=== PATIENT | female | born 1965 | race African-American/Black ===

== ENCOUNTER 2017-09-01 08:34 | Inpatient (IN) | payer OTHER ==
--- NOTE | 2017-09-01 09:24 | RAD ---
INDICATION: Syncope. COMPARISON: There are no prior studies available for comparison. TECHNIQUE: Contiguous axial sections of the brain were obtained from the skull base to the vertex without contrast. FINDINGS: The ventricles, cisterns and sulci are within normal limits. No significant focal abnormality or mass effect is seen. There is no evidence for hemorrhage. No significant focal osseous abnormality is seen. The visualized portion of the paranasal sinuses and mastoid air cells appear clear. IMPRESSION: NO EVIDENCE FOR ACUTE INTRACRANIAL ABNORMALITY.
--- NOTE | 2017-09-01 09:28 | RAD ---
HISTORY: Syncope COMPARISONS: None VIEWS: 1: frontal portable view of the chest at 9:05 AM FINDINGS: LINES AND TUBES: None. CARDIOMEDIASTINAL SILHOUETTE: The cardiomediastinal silhouette is normal for portable technique. PLEURA: The costophrenic angles are sharp. No pleural abnormalities are noted. LUNG PARENCHYMA: The lungs are clear. ABDOMEN: The upper abdomen is clear. There is no subphrenic gas. BONES AND SOFT TISSUES: No bone or soft tissue abnormalities are noted. IMPRESSION: NO ACTIVE CARDIOPULMONARY DISEASE.
[2017-09-01 09:39] LABS: ABS Basophils 0 10^3/ul (0-0.2); ABS Eosinophils 0 10^3/ul (0-0.6); ABS Lymphocytes 2.2 10^3/ul (1.0-4.8); ABS Monocytes 0.4 10^3/ul (0-0.8); ABS Neutrophils 7.4 10^3/ul (1.5-7.7); ABS Nucleated RBC 0 10^3/ul; Eosinophil % 0.2 % (0-6); Hematocrit 38 % (35-47); Hemoglobin 12.7 g/dl (12.0-16.0); Lymphocyte % 21.6 % (25-47); Mean Corpuscular HGB Conc 33 g/dl (31-36); Mean Corpuscular Hemoglobin 28 pg (27-31); Mean Corpuscular Volume 86 fL (80-97); Mean Platelet Volume 8 um3 (7.4-10.4); Nucleated Red Blood Cells % 0; Platelet Count 355 10^3/ul (150-450); Red Blood Count 4.45 10^6/ul (4.0-5.4); Red Cell Distribution Width 14 % (10.5-15); White Blood Count 10.1 10^3/ul (3.5-10.8)
[2017-09-01 09:54] LABS: EGFR Non-African American 78.4 (>60)
[2017-09-01 11:24] LABS: Urine Appearance Clear; Urine Blood Negative (Negative); Urine Color Straw; Urine Ketones 1+ (Negative); Urine Protein Negative (Negative); Urine Specific Gravity 1.008 (1.010-1.030); Urine Urobilinogen Negative (Negative)
[2017-09-01] MEDS ORDERED: Aspirin Low Dose CHEW TAB* 81 MG PO ONE (12:18)
[2017-09-01] MEDS ORDERED: Dextrose 50% Syringe 50 ML* 25 GM/50 ML SYRINGE IV PUSH PRN (12:18)
[2017-09-01] MEDS ORDERED: Ondansetron INJ* 2 MG/ML VIAL IV PRN (12:18)
[2017-09-01] MEDS ORDERED: NS 0.9% 1000 ML* 1,000 ML IV SCH (12:30)
[2017-09-01] MEDS ORDERED: Albuterol HFA INHALER* 8 gm MDI INH PRN (12:37)
[2017-09-01] MEDS ORDERED: NS 0.9% 1000 ML* 1,000 ML IV ONE (12:37)
[2017-09-01] MEDS ORDERED: Magnesium Sulfate 2 GM IV* 2 GM/50 ML BAG IVPB ONE (12:45)
[2017-09-01] MEDS ORDERED: Iodixanol* (CONTRAST) 320 MG/ML 100 ML SDV IV ONE (12:51)
--- NOTE | 2017-09-01 14:13 | RAD ---
INDICATION: RIGHT leg weakness. COMPARISON: September 25, 2014 CT angiogram. TECHNIQUE: Multidetector CT images were obtained from the aortic arch to the vertex of the head with 80 mL Visipaque 320 IV contrast. Arterial phase of enhancement. Multiplanar reformation including maximum intensity projection. 3-D arterial volume rendering. Stenosis estimations based on denominator of distal arterial diameter. NECK ANGIOGRAM REPORT: Normal variant direct origin of the LEFT vertebral artery from the aortic arch between the LEFT common carotid and subclavian arteries. While assessment is limited due to artifact from dense contrast in the LEFT brachiocephalic vein there is no gross evidence for ostial stenosis at the aortic arch branch vessels. Negative for calcific plaque at the carotid bifurcations. Negative for carotid dissection. Patent codominant vertebral arteries with both contributing to the basilar artery. NECK ANGIOGRAM IMPRESSION: Negative for carotid or vertebral artery stenosis. HEAD ANGIOGRAM REPORT: Minimal calcific plaque at the RIGHT carotid siphon without significant resulting stenosis. Unremarkable bilateral M1 and M2 middle cerebral artery segments as well as the A1 and A2 anterior cerebral artery segments. Unremarkable cerebellar artery origins and basilar artery. Patent bilateral posterior cerebral arteries are supplied by both the posterior and anterior circulation with visualized bilateral patent posterior communicating arteries. No visualized intracranial aneurysms or vascular malformations. No arterial phase enhancing lesions evident. HEAD ANGIOGRAM IMPRESSION: Negative for central intracranial large vessel arterial stenosis or occlusion. CPT II: CPT II Codes: 3100F
[2017-09-01] MEDS ORDERED: LORazepam INJ* 2 MG/ML 1 ML VIAL IV PUSH PRN (15:58)
[2017-09-01] MEDS: Acetaminophen TAB* 325 MG PO PRN ×2 (16:22→22:09)
[2017-09-01] MEDS: Heparin VIAL(*) 5000 UNITS/ML VIAL (FIVE THOUSAND) SUBCUT SCH ×2 (16:23→22:12)
[2017-09-01] MEDS: Insulin LISPRO* 1 UNITS UNIT SUBCUT SCH (17:44)
--- NOTE | 2017-09-01 19:27 | RAD ---
Image sequences: Seizures. Sagittal and axial T1, axial T2, FLAIR, diffusion and susceptibility weighted images of the brain were obtained. Ventricular structures are midline. No midline shift is noted. The extra-axial spaces are unremarkable. There is no evidence of intracranial mass or hemorrhage. No other high or low density lesions identified. Diffusion-weighted images demonstrates no restriction of diffusion. FLAIR images demonstrates no definite vasogenic edema. Please note that the study is limited due to motion artifact. Patient could not complete the study. IMPRESSION: No restriction of diffusion. Motion artifact degrades the study.
--- NOTE | 2017-09-01 19:56 | HP ---
CC: Dr. Bruno; Dr. Alvarado * HISTORY AND PHYSICAL: DATE OF ADMISSION: 09/01/17 PRIMARY CARE PROVIDER: Dr. Bruno. ATTENDING PHYSICIAN WHILE IN THE HOSPITAL: Deepa Snyder MD * (report dictated by Jim Bay NP). CONSULTING NEUROLOGIST: Dr. Alvarado. CHIEF COMPLAINT: Syncope versus seizure. HISTORY OF PRESENT ILLNESS: Mrs. Deluna is a 52-year-old female patient. She said she got up this morning. She was doing her daily chores. She was making breakfast for her son. She was getting ready for work. The last thing she remembers is she went to reach for her keys, and she does not remember the ambulance called. She does not remember the EMS coming to see her. The son had called 911 because apparently she had an episode where she fainted. She states that the only thing that she remembers prior to this episode is she felt flushed. She denied any chest pain. She said that she did not have a headache. She said yesterday and the day before, she was having some abdominal discomfort in the right upper quadrant epigastric area, but that has subsequently now gone. She did not lose control of urine. She did not wet herself, but she was found by EMS and they were concerned that she may have had a seizure. When she came in to the ED, she was very slow to respond, very confused, almost in like a postictal state. There was question if the patient had any convulsion type episodes. The patient denies any chest pain now. She states she is feeling better. She denies having any abdominal pain. She states she had no trouble with her speech. There are no reports of facial drooping. No reports of weakness to one side. The patient states that she has had an episode like this several years ago and they thought it was cardiac related according to her and she had a cardiac workup for this in [place] and nothing became of it. She states that she has not been running any fevers recently. There has been no coughing. No shortness of breath. There was abdominal discomfort in the epigastric and right upper quadrant yesterday, but no pain now. She came in to our ER, there was concern for possible seizure or syncope. We were asked to evaluate for admission. She does carry a history of diabetes, asthma, hypertension, and hyperlipidemia. PAST MEDICAL HISTORY: Significant for: 1. Diabetes. 2. Hypertension. 3. Hyperlipidemia. 4. Asthma. PAST SURGICAL HISTORY: 1. The patient has had . 2. She also had hysterectomy. MEDICATIONS: The home meds according to the list provided include: 1. Atorvastatin 20 mg daily. 2. Albuterol 2 puffs inhaled every 4 hours as needed. 3. Januvia 50 mg daily. 4. Hydrochlorothiazide 25 mg daily. 5. Metformin 1000 mg p.o. b.i.d. 6. Glipizide 10 mg p.o. b.i.d. 7. Cozaar 10 mg p.o. daily. ALLERGIES TO MEDICATIONS: Include none, but she is allergic to peanuts. FAMILY HISTORY: Mother had a history of colon cancer. Father's history is unknown as he when the patient was young. SOCIAL HISTORY: She does not smoke. She does not drink. Surrogate decision maker will be her son. REVIEW OF SYSTEMS: There is no documented fever. She denied having any significant weight change. There was no double vision. She denies having any ear discharge. There is no rhinorrhea. No sore throat, no thyroid enlargement. Denies having any chest pain. There is no orthopnea. There is no nocturnal dyspnea. There is no abdominal pain now. She denied having any nausea. No vomiting. No dysuria. There is no frequency. No seizure. No loss of consciousness, no pruritus, no skin ulcerations. Review of 14 systems was completed; all others negative. PHYSICAL EXAMINATION GENERAL: At this time, Mrs. Deluna is a 52-year-old female patient. She is sitting in the ED stretcher. She does not appear to be in any acute distress. VITAL SIGNS: Blood pressure 159/87, pulse 81, respirations 22, O2 sat of 97%, temperature of 98.6. HEENT: Head: Atraumatic and normocephalic. Eyes: EOMS are intact. Sclerae are anicteric. Not pale. Throat: Oral mucosa appears to be moist. No oropharyngeal erythema. NECK: Supple. LUNGS: Clear to auscultation. No wheezes, rales, or rhonchi. HEART: Sounds S1, S2. Regular rate and rhythm. No murmurs, rubs, or gallops. ABDOMEN: Soft, flat, nontender. Bowel sounds were present. EXTREMITIES: Pulses are 2+ throughout. She has 5/5 strength in the upper extremities. 5/5 strength on the left lower extremity. On the right lower extremity, she was slow to move compared to the left. There was no peripheral edema noted and she had pulses that were 2+ throughout. NEUROLOGIC: She is awake now. She is alert. Speech is clear. She is oriented x3. Her tongue is midline. She had no facial drooping. Finger-to- nose is intact. She does have some difficulty raising the right leg. She can move the left leg appropriately. Inspector [employer] Sorting were equal. There is no pronator drift. No other gross focal deficits. SKIN: Intact. LABORATORY DATA/DIAGNOSTIC STUDIES: WBC of 10.1, RBC of 4.45, hemoglobin of 12.7, hematocrit 38, and a platelet count of 355,000. Sodium was 134, potassium 4.1, chloride 98, bicarb was 28, BUN 15, creatinine 0.77, glucose 318 , lactic 1, calcium 9.5. Her mag is 1.5. Total bili 0.4. AST 10, ALT 16, alk phos 113, ammonia 38. Troponin 0. CRP is pending. BNP is 24. TSH is 1.30. Urine showed low specific gravity, 1 ketone, 3+ blood. Toxicology was negative. She did have a chest x-ray obtained today, which revealed no active cardiopulmonary disease. There was a brain CT, which revealed no evidence for acute intracranial abnormality. There was an EKG today showing a sinus rhythm with rate of 87. No ST elevations or T wave versions were noted. It was reviewed with the previous EKG, appears to be similar. Old medical records reviewed. ASSESSMENT AND PLAN: Mrs. Deluna is a 52-year-old female patient coming in to the ED today with complaints of an episode of syncope versus seizure. She will be admitted on observation status for: 1. Syncope versus seizure. At this point, I did ask Dr. Alvarado to evaluate the patient as there was concern that the right leg, again she is having difficulty moving it, it is moving slower than the left, it is not as fluid. I did touch base with him. The plan will be to get an MRI, CTA head and neck because she does have risk factors. I do note that when I change her position in bed, she did become orthostatic in the sense that her heart rate changed about 20 points just from sitting upright, so I am going to give her a liter of fluids wide open, hold the blood pressure meds for the time being, get the MRI, get an EEG. Dr. Alvarado will evaluate her with frequent neuro checks. Get a bedside swallow eval. Give her aspirin when able. She is on statin already. We will check lipids and A1c in the morning. We will get frequent neuro checks. Get an echo with bubble study and we will continue to follow. Dr. Alvarado to evaluate. 2. Diabetes. We will put her on lispro sliding scale. 3. Hypertension in the setting of possible focal deficit like this and concern for stroke. We will hold her blood pressure meds and allow for permissive hypertension, hyperlipidemia. Check lipid panel for the time being. Continue statin. 4. Asthma. Continue meds as prescribed. 5. Syncope. I will get orthostatic blood pressures. In addition to this, I will also get the echo. 6. DVT prophylaxis. She will be placed on heparin subcu. 7. Code status. She is full code. 8. Fluids, electrolytes, and nutrition. She is n.p.o. pending the bedside swallow eval. If she passes, she can have a consistent carb diet. TIME SPENT: On admission 60 minutes, greater than half of the time spent face- to- face with the patient obtaining my history and physical, the other half of the time was spent going over the plan of care with the patient and implementing the plan of care. I did discuss the plan of care with my attending, Dr. Snyder; she is in agreement. JIM BAY NP [id number]/[facility] #: [id number] JORGE A
--- NOTE | 2017-09-01 20:13 | CONS ---
CONSULTATION REPORT: DATE OF CONSULT: 09/01/17 PATIENT OF: Dr. Bruno and Titus Bay NP HISTORY OF PRESENT ILLNESS: This is a 52-year-old woman who I am asked to evaluate for possible stroke. Of note, she has diabetes, hypercholesterolemia and hypertension. Between 7:00 and 7:30 today, she was with her sons at the breakfast table and she says she felt hot and clammy, she does not remember anything else. I spoke to the son on the phone and he notes that his mom said she felt lightheaded and then she collapsed limply to the ground. The ambulance came and the crew apparently relayed to the ER physician that it looked like she had had a seizure , but apparently this was due to looking like she was postictal_ rather than any shaking that they directly witnessed. The son denies that she had any shaking. She was brought in. Apparently initially, she was not communicating and was moving fingers with limited power, but without any focality. I was called early afternoon by Titus Bay NP, who noted a right leg weakness and I came in, evaluated her and she notes that once she came to, her right leg feels heavier than the left. This is a new finding for her. She denies any headache, numbness, speech problems. She says her right arm feels fine. She has no back pain. She has had no prior stroke. Of note, she says several years ago when she was in [place], she had a passing out spell. It was thought to be cardiac, but the cardiac workup was negative and she never had an answer for that event. She notes that she has not been hypoglycemic recently and her blood sugar this morning was between 100 and 150. PAST MEDICAL HISTORY: She has had no recent surgeries. MEDICATIONS: Medications she takes at home include: 1. Lipitor 20 mg daily. 2. Albuterol 2 puffs inhaled p.r.n. 3. Januvia 50 mg daily. 4. Hydrochlorothiazide 25 mg daily. 5. Metformin 1000 mg b.i.d. 6. Glipizide 10 mg b.i.d. 7. Losartan 100 mg daily. ALLERGIES: She is allergic to peanuts and eggs. FAMILY HISTORY: There is no family for stroke she could recall. SOCIAL HISTORY: She does not smoke or drink. REVIEW OF SYSTEMS: Negative in all 14 spheres other than the HPI. PHYSICAL EXAM: Temperature 98.6, pulse 81, respiratory rate 22, blood pressure 159/87. She is alert and oriented with normal speech and comprehension. Cranial nerves II through XII were intact. Fundi showed sharp discs. Motor exam revealed normal tone. She had 5-/5 strength in the right leg. Strength elsewhere including in the arm was 5/5. She had no pronator drift. Finger-to- nose in the right arm was slightly clumsy, although fine motor was intact in the right hand. She had clumsiness on [id number] on the right, but not the left leg. Reflexes were 1 and equal. Toes were downgoing. Sensation intact to light touch. Chest clear. Cardiovascular: Regular rate and rhythm. Abdomen is soft with positive bowel sounds. DIAGNOSTIC STUDIES/LAB DATA: Her CT scan showed no acute bleed or problems. I reviewed the films. She has had labs including normal CBC, normal CMP with glucose of 318. Currently, magnesium 1.5, alk phos 113. C-reactive protein was 16. TSH was normal. BNP was 24. Troponin was 0.01. Lactic acid was normal. UA had 1+ ketones, 3+ glucose. Drug screen was negative. IMPRESSION: I discussed with Myriam that she was initially thought to have a seizure and had a nonfocal exam, but was confused when came in. When she was able to cooperate, it became apparent that she had some right-sided weakness mostly in her right leg, but there was some incoordination of her right arm. I discussed that this was discovered at appointment she was outside the window where she could have possibly got a tPA, which would be used for acute strokes within a more narrow timeframe. At this point, we are going to get a CTA of her head and neck to assess her vasculature. We will get a cardiac echo with bubble study. We will check fasting lipid profile. I discussed that depending on what her workup shows, we might do some further cardiac monitoring. She will be on daily aspirin at this point which she was not on previously and we may adjust her statin depending on what her LDL is, to aim for a level below 70. Thank you for sharing her case. [id number]/[facility] #: [id number] JORGE A
--- NOTE | 2017-09-02 04:50 | EEG ---
ELECTROENCEPHALOGRAPHY: DATE OF STUDY: 09/01/17_ - ROOM #[id number] DATE OF DICTATION: 09/01/17 PATIENT OF: Dr. Bay. CLINICAL PROBLEM: This is a 52-year-old woman who had a syncopal episode today followed by some right-sided weakness. MEDICINES: Include: 1. Aspirin. 2. Magnesium. 3. Humalog. 4. Lipitor. 5. Ventolin. 6. Zofran. REPORT: With the patient awake, background cerebral activity consists of moderate amplitude, diffuse alpha and beta range frequencies. With the patient asleep, background consists of diffuse irregular delta and theta activity. Some sleep spindles noted throughout the tracing. There is prominent muscle movement artifact as well as some eye artifact. No clearcut epileptiform potentials, focal abnormalities, or major asymmetries of background are noted. CLINICAL IMPRESSION: This awake and asleep EEG showed no major abnormalities, but somewhat limited by prominent artifact. [id number]/[facility] #: [id number] MTDD
[2017-09-02 05:14] LABS: ABS Basophils 0 10^3/ul (0-0.2); ABS Eosinophils 0.1 10^3/ul (0-0.6); ABS Lymphocytes 2.3 10^3/ul (1.0-4.8); ABS Monocytes 0.4 10^3/ul (0-0.8); ABS Neutrophils 4.3 10^3/ul (1.5-7.7); ABS Nucleated RBC 0 10^3/ul; Hematocrit 35 % (35-47); Hemoglobin 11.7 g/dl (12.0-16.0); Mean Corpuscular HGB Conc 33 g/dl (31-36); Mean Corpuscular Hemoglobin 29 pg (27-31); Mean Corpuscular Volume 87 fL (80-97); Mean Platelet Volume 8 um3 (7.4-10.4); Nucleated Red Blood Cells % 0.1; Platelet Count 311 10^3/ul (150-450); Red Blood Count 4.02 10^6/ul (4.0-5.4); Red Cell Distribution Width 14 % (10.5-15); White Blood Count 7.1 10^3/ul (3.5-10.8)
[2017-09-02 05:27] LABS: INR 1.03 (0.77-1.02)
[2017-09-02 05:37] LABS: EGFR Non-African American 102.6 (>60)
[2017-09-02] MEDS: Heparin VIAL(*) 5000 UNITS/ML VIAL (FIVE THOUSAND) SUBCUT SCH ×3 (07:11→22:24)
--- NOTE | 2017-09-02 08:06 | ED ---
João Larson Gabriel, scribed for Gerson Curran MD on 09/01/17 at 0849 . Neurological HPI - HPI Summary HPI Summary: This patient is a 52 year old F BIBA to [facility] after what EMS believes was seizure activity due to symptoms such as drooling. Additionally they report she had a blood glucose of over 300. The patient reports confusion, SCHULTZ, CP (due to asthma), and states she does not know what has happened. Patient denies double vision and SOB. She denies history of seizures but has had syncopal episodes previously. She has not taken her inhaler today and had a blood glucose of about 100 this morning. - History of Current Complaint Chief Complaint: EDDiabeticProb Stated Complaint: SYNCOPE Time Seen by Provider: 09/01/17 08:40 Hx Obtained From: Patient, EMS Onset/Duration: Started hours ago, Still Present Timing: Constant Onset Severity: Moderate Current Severity: Moderate Pain Intensity: 0 Pain Scale Used: 0-10 Numeric Associated Signs and Symptoms: Positive: Confusion, Chest Pain - Additional Pertinent History Primary Care Physician: LORENZO - Allergy/Home Medications Allergies/Adverse Reactions: Allergies Allergy/AdvReac Type Severity Reaction Status Date / Time Peanut-containing Drug Allergy Unknown Verified 08/27/15 18:18 Products Reaction Details Home Medications: Home Medications Sitagliptin (NF) [Januvia (NF)] 50 mg PO DAILY 09/01/17 [History Confirmed 09/01] PMH/Surg Hx/FS Hx/Imm Hx Endocrine/Hematology History: Reports: Hx Diabetes Denies: Hx Thyroid Disease Cardiovascular History: Reports: Hx Hypercholesterolemia, Hx Hypertension Denies: Hx Congestive Heart Failure, Hx Pacemaker/ICD Respiratory History: Denies: Hx Asthma, Hx Chronic Obstructive Pulmonary Disease (COPD) GI History: Denies: Hx Ulcer History: Denies: Hx Renal Disease Sensory History: Denies: Hx Hearing Aid Psychiatric History: Denies: Hx Panic Disorder - Surgical History Surgery Procedure, Year, and Place: HYSTERECTOMY, Infectious Disease History: No Infectious Disease History: Denies: Hx Clostridium Difficile, Hx Hepatitis, Hx Human Immunodeficiency Virus (HIV), Hx of Known/Suspected MRSA, Traveled Outside the [place] in Last 30 Days - Family History Known Family History: Positive: Hypertension, Diabetes - Social History Alcohol Use: Occasionally Alcohol Amount: 1 glass 1 month Substance Use Type: Reports: None Smoking Status (MU): Never Smoked Tobacco Review of Systems Negative: Blurred Vision Positive: Chest Pain Negative: Shortness Of Breath Neurological: Other - confusion Positive: Headache All Other Systems Reviewed And Are Negative: Yes Physical Exam - Summary Physical Exam Summary: VITAL SIGNS: Reviewed. GENERAL: Patient is a well-developed and nourished female who is lying comfortable in the stretcher. Patient is lethargic and confused HEAD AND FACE: No signs of trauma. No ecchymosis, hematomas or skull depressions. No sinus tenderness. EYES: PERRLA, EOMI x 2, No injected conjunctiva, no nystagmus. No photophobia. EARS: Hearing grossly intact. Ear canals and tympanic membranes are within normal limits. MOUTH: Oropharynx within normal limits. NECK: Supple, trachea is midline, no adenopathy, no JVD, no carotid bruit, no c- spine tenderness, neck with full ROM. No meningeal signs, no Kernig's or brudzinskis signs. CHEST: Symmetric, no tenderness at palpation LUNGS: Clear to auscultation bilaterally. No wheezing or crackles. CVS: Regular rate and rhythm, S1 and S2 present, no murmurs or gallops appreciated. ABDOMEN: Soft, non-tender. No signs of distention. No rebound no guarding, and no masses palpated. Bowel sounds are normal. EXTREMITIES: FROM in all major joints, no edema, no cyanosis or clubbing. NEURO: Alert and oriented x 3. No acute neurological deficits. Speech is normal and follows commands. SKIN: Dry and warm GCS: 15 Triage Information Reviewed: Yes Vital Signs On Initial Exam: Initial Vitals Temp Pulse Resp BP Pulse Ox 98.6 F 85 30 166/68 98 09/01/17 08:41 09/01/17 08:41 09/01/17 08:41 09/01/17 08:41 09/01/17 08:41 Vital Signs Reviewed: Yes Diagnostics - Vital Signs Vital Signs Temp Pulse Resp BP Pulse Ox 09/01/17 08:41 98.6 F 85 30 166/68 98 - Laboratory Lab Results: Lab Results 09/01/17 09/01/17 09/01/17 Range/Units 08:48 09:21 09:21 WBC (3.5-10.8) 10^3/ul RBC (4.0-5.4) 10^6/ul Hgb (12.0-16.0) g/dl Hct (35-47) % MCV (80-97) fL MCH (27-31) pg MCHC (31-36) g/dl RDW (10.5-15) % Plt Count (150-450) 10^3/ul MPV (7.4-10.4) um3 Neut % (Auto) (38-83) % Lymph % (Auto) (25-47) % Kern % (Auto) (1-9) % Eos % (Auto) (0-6) % Baso % (Auto) (0-2) % Absolute Neuts (auto) (1.5-7.7) 10^3/ul Absolute Lymphs (auto) (1.0-4.8) 10^3/ul Absolute Monos (auto) (0-0.8) 10^3/ul Absolute Eos (auto) (0-0.6) 10^3/ul Absolute Basos (auto) (0-0.2) 10^3/ul Absolute Nucleated RBC 10^3/ul Nucleated RBC % Sodium 134 (133-145) mmol/L Potassium 4.1 (3.5-5.0) mmol/L Chloride 98 L (101-111) mmol/L Carbon Dioxide 28 (22-32) mmol/L Anion Gap 8 (2-11) mmol/L BUN 15 (6-24) mg/dL Creatinine 0.77 (0.51-0.95) mg/dL Est GFR ( Amer) 100.8 (>60) Est GFR (Non-Af Amer) 78.4 (>60) BUN/Creatinine Ratio 19.5 (8-20) Glucose 318 H (70-100) mg/dL POC Glucose (mg/dL) 326 H (70-100) mg/dL Lactic Acid (0.5-2.0) mmol/L Calcium 9.7 (8.6-10.3) mg/dL Magnesium 1.5 L (1.9-2.7) mg/dL Total Bilirubin 0.40 (0.2-1.0) mg/dL AST 10 L (13-39) U/L ALT 16 (7-52) U/L Alkaline Phosphatase 113 H (34-104) U/L Ammonia 38 (16-53) mol/L Total Creatine Kinase 47 (10-223) U/L Troponin I 0.00 (<0.04) ng/mL C-Reactive Protein 16.45 H (< 5.00) mg/L B-Natriuretic Peptide 24 ( - 100) pg/mL Total Protein 7.2 (6.4-8.9) g/dL Albumin 4.0 (3.2-5.2) g/dL Globulin 3.2 (2-4) g/dL Albumin/Globulin Ratio 1.3 (1-3) TSH 1.30 (0.34-5.60) mcIU/mL Urine Color Urine Appearance Urine pH (5-9) Ur Specific [place] (1.010-1.030) Urine Protein (Negative) Urine Ketones (Negative) Urine Blood (Negative) Urine Nitrate (Negative) Urine Bilirubin (Negative) Urine Urobilinogen (Negative) Ur Leukocyte Esterase (Negative) Urine Glucose (Negative) Urine Opiates Screen (None Detect) Ur Barbiturates Screen (None Detect) Ur Phencyclidine Scrn (None Detect) Ur Amphetamines Screen (None Detect) U Benzodiazepines Scrn (None Detect) Urine Cocaine Screen (None Detect) U Cannabinoids Screen (None Detect) Serum Alcohol < 10 (<10) mg/dL 09/01/17 09/01/17 09/01/17 Range/Units 09:21 09:21 10:55 WBC 10.1 (3.5-10.8) 10^3/ul RBC 4.45 (4.0-5.4) 10^6/ul Hgb 12.7 (12.0-16.0) g/dl Hct 38 (35-47) % MCV 86 (80-97) fL MCH 28 (27-31) pg MCHC 33 (31-36) g/dl RDW 14 (10.5-15) % Plt Count 355 (150-450) 10^3/ul MPV 8 (7.4-10.4) um3 Neut % (Auto) 73.5 (38-83) % Lymph % (Auto) 21.6 L (25-47) % Kern % (Auto) 4.3 (1-9) % Eos % (Auto) 0.2 (0-6) % Baso % (Auto) 0.4 (0-2) % Absolute Neuts (auto) 7.4 (1.5-7.7) 10^3/ul Absolute Lymphs (auto) 2.2 (1.0-4.8) 10^3/ul Absolute Monos (auto) 0.4 (0-0.8) 10^3/ul Absolute Eos (auto) 0 (0-0.6) 10^3/ul Absolute Basos (auto) 0 (0-0.2) 10^3/ul Absolute Nucleated RBC 0 10^3/ul Nucleated RBC % 0 Sodium (133-145) mmol/L Potassium (3.5-5.0) mmol/L Chloride (101-111) mmol/L Carbon Dioxide (22-32) mmol/L Anion Gap (2-11) mmol/L BUN (6-24) mg/dL Creatinine (0.51-0.95) mg/dL Est GFR ( Amer) (>60) Est GFR (Non-Af Amer) (>60) BUN/Creatinine Ratio (8-20) Glucose (70-100) mg/dL POC Glucose (mg/dL) (70-100) mg/dL Lactic Acid 1.0 (0.5-2.0) mmol/L Calcium (8.6-10.3) mg/dL Magnesium (1.9-2.7) mg/dL Total Bilirubin (0.2-1.0) mg/dL AST (13-39) U/L ALT (7-52) U/L Alkaline Phosphatase (34-104) U/L Ammonia (16-53) mol/L Total Creatine Kinase (10-223) U/L Troponin I (<0.04) ng/mL C-Reactive Protein (< 5.00) mg/L B-Natriuretic Peptide ( - 100) pg/mL Total Protein (6.4-8.9) g/dL Albumin (3.2-5.2) g/dL Globulin (2-4) g/dL Albumin/Globulin Ratio (1-3) TSH (0.34-5.60) mcIU/mL Urine Color Straw Urine Appearance Clear Urine pH 5.0 (5-9) Ur Specific [place] 1.008 L (1.010-1.030) Urine Protein Negative (Negative) Urine Ketones 1+ H (Negative) Urine Blood Negative (Negative) Urine Nitrate Negative (Negative) Urine Bilirubin Negative (Negative) Urine Urobilinogen Negative (Negative) Ur Leukocyte Esterase Negative (Negative) Urine Glucose 3+(>=500 mg/dl) H (Negative) Urine Opiates Screen (None Detect) Ur Barbiturates Screen (None Detect) Ur Phencyclidine Scrn (None Detect) Ur Amphetamines Screen (None Detect) U Benzodiazepines Scrn (None Detect) Urine Cocaine Screen (None Detect) U Cannabinoids Screen (None Detect) Serum Alcohol (<10) mg/dL 09/01/17 09/01/17 Range/Units 10:55 12:56 WBC (3.5-10.8) 10^3/ul RBC (4.0-5.4) 10^6/ul Hgb (12.0-16.0) g/dl Hct (35-47) % MCV (80-97) fL MCH (27-31) pg MCHC (31-36) g/dl RDW (10.5-15) % Plt Count (150-450) 10^3/ul MPV (7.4-10.4) um3 Neut % (Auto) (38-83) % Lymph % (Auto) (25-47) % Kern % (Auto) (1-9) % Eos % (Auto) (0-6) % Baso % (Auto) (0-2) % Absolute Neuts (auto) (1.5-7.7) 10^3/ul Absolute Lymphs (auto) (1.0-4.8) 10^3/ul Absolute Monos (auto) (0-0.8) 10^3/ul Absolute Eos (auto) (0-0.6) 10^3/ul Absolute Basos (auto) (0-0.2) 10^3/ul Absolute Nucleated RBC 10^3/ul Nucleated RBC % Sodium (133-145) mmol/L Potassium (3.5-5.0) mmol/L Chloride (101-111) mmol/L Carbon Dioxide (22-32) mmol/L Anion Gap (2-11) mmol/L BUN (6-24) mg/dL Creatinine (0.51-0.95) mg/dL Est GFR ( Amer) (>60) Est GFR (Non-Af Amer) (>60) BUN/Creatinine Ratio (8-20) Glucose (70-100) mg/dL POC Glucose (mg/dL) (70-100) mg/dL Lactic Acid (0.5-2.0) mmol/L Calcium (8.6-10.3) mg/dL Magnesium (1.9-2.7) mg/dL Total Bilirubin (0.2-1.0) mg/dL AST (13-39) U/L ALT (7-52) U/L Alkaline Phosphatase (34-104) U/L Ammonia (16-53) mol/L Total Creatine Kinase (10-223) U/L Troponin I 0.01 (<0.04) ng/mL C-Reactive Protein (< 5.00) mg/L B-Natriuretic Peptide ( - 100) pg/mL Total Protein (6.4-8.9) g/dL Albumin (3.2-5.2) g/dL Globulin (2-4) g/dL Albumin/Globulin Ratio (1-3) TSH (0.34-5.60) mcIU/mL Urine Color Urine Appearance Urine pH (5-9) Ur Specific [place] (1.010-1.030) Urine Protein (Negative) Urine Ketones (Negative) Urine Blood (Negative) Urine Nitrate (Negative) Urine Bilirubin (Negative) Urine Urobilinogen (Negative) Ur Leukocyte Esterase (Negative) Urine Glucose (Negative) Urine Opiates Screen None detected (None Detect) Ur Barbiturates Screen None detected (None Detect) Ur Phencyclidine Scrn None detected (None Detect) Ur Amphetamines Screen None detected (None Detect) U Benzodiazepines Scrn None detected (None Detect) Urine Cocaine Screen None detected (None Detect) U Cannabinoids Screen None detected (None Detect) Serum Alcohol (<10) mg/dL Result Diagrams: 09/02/17 05:01 09/02/17 05:01 Lab Statement: Any lab studies that have been ordered have been reviewed, and results considered in the medical decision making process. - Radiology CXR Radiology Interpretation Completed By: Radiologist - NO ACTIVE CARDIOPULMONARY DISEASE. ED physician has reviewed this radiology report. - CT CT brain CT Interpretation Completed By: Radiologist - NO EVIDENCE FOR ACUTE INTRACRANIAL ABNORMALITY. ED physician has reviewed this radiology report. - EKG 0844 Cardiac Rate: NL EKG Rhythm: Sinus Rhythm - at 87 BPM EKG Interpretation: No ST elevations, normal axis NIH Scale - NIH Scale Level of Consciousness: Alert/Keenly Responsive Ask Patient the Month and His/Her Age: Both Correct Ask Pt to Open/Close Eyes and Lead Welder/Release Non-Paretic Hand: Both Correctly Best Gaze (Only Horizontal Eye Movement): Normal Visual Field Testing: No Visual Loss Facial Paresis-Pt to Smile & Close Eyes or Grimace Symmetry: Normal/Symmetrical Motor Function - Right Arm: No Drift-Holds 10 Seconds Motor Function - Left Arm: No Drift-Holds 10 Seconds Motor Function - Right Leg: No Drift-Holds 10 Seconds Motor Function - Left Leg: No Drift-Holds 10 Seconds Limb Ataxia-Must be out of Proportion to Weakness Present: Absent Sensory (Use Pinprick to Test Arms/Legs/Trunk/Face): Normal Best Language (Describe Picture, Name Items): No Aphasia Extinction and Inattention: No Abnormality Re-Evaluation - Re-Evaluation First Eval Re-Evaluation Time: 09:40 Change: Unchanged Comment: Neurological exam performed and patient is neurologically intact. Second Eval Re-Evaluation Time: 12:23 Change: Improved Comment: Patients speech has improved and she is more alert and oriented Course/Dx - Course Assessment/Plan: This patient is a 52 year old F BIBA to [facility] after what EMS believes was seizure activity due to symptoms such as drooling. Additionally they report she had a blood glucose of over 300. The patient reports confusion, SCHULTZ, CP (due to asthma), and states she does not know what has happened. Patient denies double vision and SOB. She denies history of seizures but has had syncopal episodes previously. She has not taken her inhaler today and had a blood glucose of about 100 this morning. An EKG reveals normal axis. CXR reveals, per radiologist, NO ACTIVE CARDIOPULMONARY DISEASE. ED physician has reviewed this radiology report. CT brain reveals, per radiologist, NO EVIDENCE FOR ACUTE INTRACRANIAL ABNORMALITY. ED physician has reviewed this radiology report. Test results with no significant abnormalities except for glucose of 318, CRP of 16.4. Troponin of 0.00. UA negative for UTI, urine toxicology is negative. At this time no source of infection is suspected. As reported by EMS she may have had a syncopal episode vs seizure. Currently I am more inclined to believe she had a seizures and is in a postictal state. However before admission she is more alert an oriented and reports feeling better. Before the patient went to the floor I was called by Titus [place] and he believe the patient has slight weakness in RLE. I examined the patient and she did not have any weakness at this time or numbness. However Dr. Alvarado was still consulted and he came and consulted the patient and also recommend an MRI. We discussed patient care with Dr. Snyder and they agreed to admit the patient. Patient will be admitted. The patient is agreeable with this plan. - Differential Dx Differential Diagnoses Neuro: Positive: Cerebrovascular Accident, Metabolic Abnormality, Seizure Disorder, Transient Ischemic Attack, Vasovagal Reaction - Diagnoses Provider Diagnoses: Altered mental status, syncope vs seizure - Physician Notifications Discussed Care Of Patient With: Deepa Snyder Time Discussed With Above Provider: 11:37 Instructed by Provider To: Other - We discussed patient care with Dr. Snyder and they agreed to admit the patient. Discharge - Discharge Plan Condition: Fair Disposition: ADMITTED TO [facility] The documentation as recorded by the João lambert Gabriel accurately reflects the service I personally performed and the decisions made by me, Gerson Curran MD.
[2017-09-02] MEDS: Acetaminophen TAB* 325 MG PO PRN ×2 (08:10→12:12)
[2017-09-02] MEDS: Insulin LISPRO* 1 UNITS UNIT SUBCUT SCH ×3 (08:11→17:21)
[2017-09-02] MEDS ORDERED: Aspirin Low Dose CHEW TAB* 81 MG PO SCH (09:00)
[2017-09-02] MEDS ORDERED: Atorvastatin* 20 MG TAB PO SCH (09:00)
--- NOTE | 2017-09-02 10:22 | ECHO ---
Patient: ARTURO SIMENTAL [facility] Rec#: [id number] : 1965 Date: 09/02/2017 Age: 52y Height: 167.64 cm / 66.0 in Weight: 98.43 kg / 216.9 lbs Sex: F BSA: 2.07 Admit Date#: 09/01/2017 Referring: Titus Bay NP Reading: Ricardo Watt DO Street Car Inspector: Sulma Dixon RDCS CC: Eli Bruno MD Transthoracic Echocardiogram Findings History: DM,HTN,HLD. Technical Comments: The study quality is good. Completed at 0831. Left Ventricle: The left ventricular chamber size is normal. Mild concentric left ventricular hypertrophy is observed. Global left ventricular wall motion and contractility are within normal limits. There is normal left ventricular systolic function. The estimated ejection fraction is 60-65%. Normal left ventricular diastolic filling is observed. Left Atrium: The left atrial chamber size is normal. Right Ventricle: The right ventricular chamber size and systolic function are within normal limits. Right Atrium: The right atrial cavity size is normal. There is no patent foramen ovale visualized. A patent foramen ovale is not demonstrated with color Doppler and agitated contrast. Aortic Valve: The aortic valve is trileaflet. The aortic valve leaflets are mildly thickened., mild-moderately There is no evidence of aortic regurgitation. There is no evidence of aortic stenosis. Mitral Valve: The mitral valve leaflets are mildly thickened. There is a trace of mitral regurgitation. There is no evidence of mitral stenosis. Tricuspid Valve: The tricuspid valve leaflets are normal. There is trace tricuspid regurgitation. No pulmonary hypertension is noted. There is no tricuspid stenosis. Pulmonic Valve: The pulmonic valve appears normal. There is a trace pulmonic regurgitation. There is no pulmonic stenosis. Pericardium: The pericardium appears normal. There is no significant pericardial effusion. Aorta: There is no dilatation of the ascending aorta. There is no dilatation of the aortic arch. There is no dilation of the aortic root. Pulmonary Artery: The main pulmonary artery is not well visualized. Venous: The inferior vena cava is dilated. There is a greater than 50% respiratory change in the inferior vena cava dimension. Contrast: Normal saline was used as contrast for the bubble study. Intravenous agitated saline contrast was used to assess intracardiac shunting. Conclusions The left ventricular chamber size is normal. Mild concentric left ventricular hypertrophy is observed. Global left ventricular wall motion and contractility are within normal limits. There is normal left ventricular systolic function. The estimated ejection fraction is 60-65%. The left atrial chamber size is normal. The right ventricular chamber size and systolic function are within normal limits. A patent foramen ovale is not demonstrated with color Doppler and agitated contrast (negative bubble study) The aortic valve leaflets are mild to moderately thickened without any significant dysfunction. No prior studies available for comparison at time of interpretation. Measurements Name Value Normal Range RVIDd (AP) 2D 2.9 cm (0.9 - 2.6) RVDdMajor (2D) 3.3 cm (2.2 - 4.4) RAd ISD 4CH 4.6 cm (3.4 - 4.9) RA (A4C)W 3.7 cm (2.9 - 4.6) IVSd (2D) 1.15 cm (0.6 - 1) LVPWd (2D) 1.23 cm (0.6 - 1) IVS:LVPW ratio (2D) 0.94 ratio - LVIDd (2D) 3.6 cm (3.6 - 5.4) LVIDs (2D) 2.7 cm - LV FS (2D) 25 % (25 - 45) Aortic Annulus 1.9 cm (1.4 - 2.6) Ao root diameter (2D) 2.6 cm (2.1 - 3.5) Ascending Ao 3 cm (2.1 - 3.4) Aortic arch 2.9 cm (1.8 - 3.4) Descending Ao 0.7 cm - LA dimension (AP) 2D 3.5 cm (2.3 - 3.8) LAd ISD 4CH 5.2 cm (2.9 - 5.3) LA ISD 4CH W 4.3 cm (2.5 - 4.5) Name Value Normal Range LA ESV SP 4CH (A/L) 69 ml - LA ESV SP 2CH (A/L) 42 ml - LA ESV BP (A/L) 55 ml - LA ESV BP (A/L) index 26.45 ml/m2 - LA ESV SP 4CH (MOD) 64 ml - LA ESV SP 2CH (MOD) 41 ml - Name Value Normal Range MV E-wave Vmax 1.1 m/sec - MV deceleration time 179 msec - MV A-wave Vmax 1 m/sec - MV E:A ratio 1.16 ratio - Name Value Normal Range AV Vmax 1.8 m/sec - AV VTI 38.5 cm - AV peak gradient 13.4 mmHg - AV mean gradient 7.38 mmHg - LVOT Vmax 1.2 m/sec - LVOT VTI 25.4 cm - LVOT peak gradient 5.76 mmHg - LVOT mean gradient 2.67 mmHg - Name Value Normal Range TR Vmax 2.6 m/sec - TR peak gradient 27 mmHg - RAP 8 mmHg - RVSP 35 mmHg - IVC diameter 2.2 cm - Name Value Normal Range PV Vmax 1 m/sec - PV peak gradient 3.76 mmHg -
[2017-09-02] MEDS ORDERED: Iodixanol* (CONTRAST) 320 MG/ML 100 ML SDV IV ONE (12:16)
[2017-09-02] MEDS: traMADol TAB* 50 MG PO PRN (14:36)
--- NOTE | 2017-09-02 14:54 | RAD ---
Indication: Pulmonary embolus. Contrast: Administered 92.2 ml of VISIPAQUE 320 mg/ml CTA of the chest was performed after IV contrast administration. Coronal and sagittal reconstructed images were obtained. The pulmonary arterial tree is well opacified. There are no filling defects present to suggest pulmonary embolus. Aorta demonstrates no evidence of aneurysmal dilatation or aortic dissection. Inferior thyroid lobes are unremarkable. There is no mediastinal or hilar adenopathy noted. The heart demonstrates no pericardial effusion. The trachea and major bronchi appear patent. Lung cole demonstrate mild interstitial prominence consistent with vascular congestion and mild emphysematous changes. No focal nodules are identified. The visualized abdominal organs are otherwise unremarkable. IMPRESSION: No evidence of pulmonary embolus is noted. Aorta demonstrates no aneurysmal dilatation or aortic dissection.
[2017-09-02] MEDS: Aspirin TAB* 325 MG PO SCH (17:21)
--- NOTE | 2017-09-02 18:18 | PN ---
Subjective Date of Service: 09/02/17 Interval History: Ms. Deluna feels much better and wishes to go home. She complains of a frontal headache. No lightheadedness, dizziness, palpitations, or chest pain. Family History: Unchanged from Admission Social History: Unchanged from Admission Past Medical History: Unchanged from Admission Objective Active Medications: Acetaminophen (Tylenol Tab*) 650 mg PO Q4H PRN PRN Reason: FEVER/PAIN Last Admin: 09/02/17 12:12 Dose: 650 mg Albuterol (Ventolin Hfa Inhaler*) 2 puff INH Q4H PRN PRN Reason: SOB/WHEEZING Aspirin (Aspirin Tab*) 325 mg PO DAILY [facility] Last Admin: 09/02/17 17:21 Dose: 325 mg Atorvastatin Calcium (Lipitor*) 40 mg PO DAILY [facility] Dextrose (D50w Syringe 50 Ml*) 12.5 gm IV PUSH .FOR FS < 60 - SS PRN PRN Reason: FS < 60 Heparin Sodium (Porcine) (Heparin Vial(*)) 5,000 units SUBCUT Q8HR [facility] Last Admin: 09/02/17 14:36 Dose: 5,000 units Sodium Chloride (Ns 0.9% 1000 Ml*) 1,000 mls @ 100 mls/hr IV PER RATE [facility] Last Admin: 09/01/17 16:41 Dose: 100 mls/hr Insulin Human Lispro (Humalog*) 0 units SUBCUT AC [facility] PRN Reason: Protocol Last Admin: 09/02/17 17:21 Dose: 3 units Lorazepam (Ativan Inj*) 1 mg IV PUSH ONCE PRN PRN Reason: ANXIETY Last Admin: 09/01/17 18:12 Dose: 1 mg Ondansetron HCl (Zofran Inj*) 4 mg IV Q6H PRN PRN Reason: NAUSEA Last Admin: 09/02/17 04:41 Dose: 4 mg Tramadol HCl (Ultram*) 50 mg PO Q6H PRN PRN Reason: PAIN Last Admin: 09/02/17 14:36 Dose: 50 mg Vital Signs - 8 hr 09/02/17 09/02/17 09/02/17 11:24 14:36 15:36 Temperature 97.9 F Pulse Rate 69 Respiratory 22 20 Rate Blood Pressure 120/63 172/98 (mmHg) O2 Sat by Pulse 96 Oximetry 09/02/17 09/02/17 15:42 16:45 Temperature 98.1 F Pulse Rate 76 Respiratory 20 16 Rate Blood Pressure 145/76 (mmHg) O2 Sat by Pulse 98 Oximetry Oxygen Devices in Use Now: None Appearance: alert, well appearing female Eyes: No Scleral Icterus, - - no nystagmus Ears/Nose/Mouth/Throat: NL Teeth, Lips, Gums Neck: NL Appearance and Movements; NL JVP Respiratory: Symmetrical Chest Expansion and Respiratory Effort Cardiovascular: NL Sounds; No Murmurs; No JVD, RRR Abdominal: NL Sounds; No Tenderness; No Distention Lymphatic: No Cervical Adenopathy Extremities: No Edema Skin: No Rash or Ulcers Neurological: Alert and Oriented x 3, - - mildly decreased sensation in left toes, strength 5+ throughout. face symmetrical. Result Diagrams: 09/02/17 05:01 09/02/17 05:01 Additional Lab and Data: Lab Results 09/01/17 09/01/17 09/01/17 Range/Units 08:48 09:21 09:21 WBC (3.5-10.8) 10^3/ul RBC (4.0-5.4) 10^6/ul Hgb (12.0-16.0) g/dl Hct (35-47) % MCV (80-97) fL MCH (27-31) pg MCHC (31-36) g/dl RDW (10.5-15) % Plt Count (150-450) 10^3/ul MPV (7.4-10.4) um3 Neut % (Auto) (38-83) % Lymph % (Auto) (25-47) % Gray % (Auto) (1-9) % Eos % (Auto) (0-6) % Baso % (Auto) (0-2) % Absolute Neuts (auto) (1.5-7.7) 10^3/ul Absolute Lymphs (auto) (1.0-4.8) 10^3/ul Absolute Monos (auto) (0-0.8) 10^3/ul Absolute Eos (auto) (0-0.6) 10^3/ul Absolute Basos (auto) (0-0.2) 10^3/ul Absolute Nucleated RBC 10^3/ul Nucleated RBC % Sodium 134 (133-145) mmol/L Potassium 4.1 (3.5-5.0) mmol/L Chloride 98 L (101-111) mmol/L Carbon Dioxide 28 (22-32) mmol/L Anion Gap 8 (2-11) mmol/L BUN 15 (6-24) mg/dL Creatinine 0.77 (0.51-0.95) mg/dL Est GFR ( Amer) 100.8 (>60) Est GFR (Non-Af Amer) 78.4 (>60) BUN/Creatinine Ratio 19.5 (8-20) Glucose 318 H (70-100) mg/dL POC Glucose (mg/dL) 326 H (70-100) mg/dL Lactic Acid (0.5-2.0) mmol/L Calcium 9.7 (8.6-10.3) mg/dL Magnesium 1.5 L (1.9-2.7) mg/dL Total Bilirubin 0.40 (0.2-1.0) mg/dL AST 10 L (13-39) U/L ALT 16 (7-52) U/L Alkaline Phosphatase 113 H (34-104) U/L Ammonia 38 (16-53) mol/L Total Creatine Kinase 47 (10-223) U/L Troponin I 0.00 (<0.04) ng/mL C-Reactive Protein 16.45 H (< 5.00) mg/L B-Natriuretic Peptide 24 ( - 100) pg/mL Total Protein 7.2 (6.4-8.9) g/dL Albumin 4.0 (3.2-5.2) g/dL Globulin 3.2 (2-4) g/dL Albumin/Globulin Ratio 1.3 (1-3) TSH 1.30 (0.34-5.60) mcIU/mL Urine Color Urine Appearance Urine pH (5-9) Ur Specific Volcano (1.010-1.030) Urine Protein (Negative) Urine Ketones (Negative) Urine Blood (Negative) Urine Nitrate (Negative) Urine Bilirubin (Negative) Urine Urobilinogen (Negative) Ur Leukocyte Esterase (Negative) Urine Glucose (Negative) Urine Opiates Screen (None Detect) Ur Barbiturates Screen (None Detect) Ur Phencyclidine Scrn (None Detect) Ur Amphetamines Screen (None Detect) U Benzodiazepines Scrn (None Detect) Urine Cocaine Screen (None Detect) U Cannabinoids Screen (None Detect) Serum Alcohol < 10 (<10) mg/dL 09/01/17 09/01/17 09/01/17 Range/Units 09:21 09:21 10:55 WBC 10.1 (3.5-10.8) 10^3/ul RBC 4.45 (4.0-5.4) 10^6/ul Hgb 12.7 (12.0-16.0) g/dl Hct 38 (35-47) % MCV 86 (80-97) fL MCH 28 (27-31) pg MCHC 33 (31-36) g/dl RDW 14 (10.5-15) % Plt Count 355 (150-450) 10^3/ul MPV 8 (7.4-10.4) um3 Neut % (Auto) 73.5 (38-83) % Lymph % (Auto) 21.6 L (25-47) % Gray % (Auto) 4.3 (1-9) % Eos % (Auto) 0.2 (0-6) % Baso % (Auto) 0.4 (0-2) % Absolute Neuts (auto) 7.4 (1.5-7.7) 10^3/ul Absolute Lymphs (auto) 2.2 (1.0-4.8) 10^3/ul Absolute Monos (auto) 0.4 (0-0.8) 10^3/ul Absolute Eos (auto) 0 (0-0.6) 10^3/ul Absolute Basos (auto) 0 (0-0.2) 10^3/ul Absolute Nucleated RBC 0 10^3/ul Nucleated RBC % 0 Sodium (133-145) mmol/L Potassium (3.5-5.0) mmol/L Chloride (101-111) mmol/L Carbon Dioxide (22-32) mmol/L Anion Gap (2-11) mmol/L BUN (6-24) mg/dL Creatinine (0.51-0.95) mg/dL Est GFR ( Amer) (>60) Est GFR (Non-Af Amer) (>60) BUN/Creatinine Ratio (8-20) Glucose (70-100) mg/dL POC Glucose (mg/dL) (70-100) mg/dL Lactic Acid 1.0 (0.5-2.0) mmol/L Calcium (8.6-10.3) mg/dL Magnesium (1.9-2.7) mg/dL Total Bilirubin (0.2-1.0) mg/dL AST (13-39) U/L ALT (7-52) U/L Alkaline Phosphatase (34-104) U/L Ammonia (16-53) mol/L Total Creatine Kinase (10-223) U/L Troponin I (<0.04) ng/mL C-Reactive Protein (< 5.00) mg/L B-Natriuretic Peptide ( - 100) pg/mL Total Protein (6.4-8.9) g/dL Albumin (3.2-5.2) g/dL Globulin (2-4) g/dL Albumin/Globulin Ratio (1-3) TSH (0.34-5.60) mcIU/mL Urine Color Straw Urine Appearance Clear Urine pH 5.0 (5-9) Ur Specific Volcano 1.008 L (1.010-1.030) Urine Protein Negative (Negative) Urine Ketones 1+ H (Negative) Urine Blood Negative (Negative) Urine Nitrate Negative (Negative) Urine Bilirubin Negative (Negative) Urine Urobilinogen Negative (Negative) Ur Leukocyte Esterase Negative (Negative) Urine Glucose 3+(>=500 mg/dl) H (Negative) Urine Opiates Screen (None Detect) Ur Barbiturates Screen (None Detect) Ur Phencyclidine Scrn (None Detect) Ur Amphetamines Screen (None Detect) U Benzodiazepines Scrn (None Detect) Urine Cocaine Screen (None Detect) U Cannabinoids Screen (None Detect) Serum Alcohol (<10) mg/dL 09/01/17 09/01/17 Range/Units 10:55 12:56 WBC (3.5-10.8) 10^3/ul RBC (4.0-5.4) 10^6/ul Hgb (12.0-16.0) g/dl Hct (35-47) % MCV (80-97) fL MCH (27-31) pg MCHC (31-36) g/dl RDW (10.5-15) % Plt Count (150-450) 10^3/ul MPV (7.4-10.4) um3 Neut % (Auto) (38-83) % Lymph % (Auto) (25-47) % Gray % (Auto) (1-9) % Eos % (Auto) (0-6) % Baso % (Auto) (0-2) % Absolute Neuts (auto) (1.5-7.7) 10^3/ul Absolute Lymphs (auto) (1.0-4.8) 10^3/ul Absolute Monos (auto) (0-0.8) 10^3/ul Absolute Eos (auto) (0-0.6) 10^3/ul Absolute Basos (auto) (0-0.2) 10^3/ul Absolute Nucleated RBC 10^3/ul Nucleated RBC % Sodium (133-145) mmol/L Potassium (3.5-5.0) mmol/L Chloride (101-111) mmol/L Carbon Dioxide (22-32) mmol/L Anion Gap (2-11) mmol/L BUN (6-24) mg/dL Creatinine (0.51-0.95) mg/dL Est GFR ( Amer) (>60) Est GFR (Non-Af Amer) (>60) BUN/Creatinine Ratio (8-20) Glucose (70-100) mg/dL POC Glucose (mg/dL) (70-100) mg/dL Lactic Acid (0.5-2.0) mmol/L Calcium (8.6-10.3) mg/dL Magnesium (1.9-2.7) mg/dL Total Bilirubin (0.2-1.0) mg/dL AST (13-39) U/L ALT (7-52) U/L Alkaline Phosphatase (34-104) U/L Ammonia (16-53) mol/L Total Creatine Kinase (10-223) U/L Troponin I 0.01 (<0.04) ng/mL C-Reactive Protein (< 5.00) mg/L B-Natriuretic Peptide ( - 100) pg/mL Total Protein (6.4-8.9) g/dL Albumin (3.2-5.2) g/dL Globulin (2-4) g/dL Albumin/Globulin Ratio (1-3) TSH (0.34-5.60) mcIU/mL Urine Color Urine Appearance Urine pH (5-9) Ur Specific Volcano (1.010-1.030) Urine Protein (Negative) Urine Ketones (Negative) Urine Blood (Negative) Urine Nitrate (Negative) Urine Bilirubin (Negative) Urine Urobilinogen (Negative) Ur Leukocyte Esterase (Negative) Urine Glucose (Negative) Urine Opiates Screen None detected (None Detect) Ur Barbiturates Screen None detected (None Detect) Ur Phencyclidine Scrn None detected (None Detect) Ur Amphetamines Screen None detected (None Detect) U Benzodiazepines Scrn None detected (None Detect) Urine Cocaine Screen None detected (None Detect) U Cannabinoids Screen None detected (None Detect) Serum Alcohol (<10) mg/dL Assess/Plan/Problems-Billing Assessment: - Patient Problems (1) Syncope and collapse Current Visit: Yes Status: Acute Code(s): R55 - SYNCOPE AND COLLAPSE SNOMED Code(s): 804636550 Comment: Work up has thus far been negative. I completed a CTA because she has a breast mass and experienced syncope, but it was also negative. She has had no events on tele. Neurology is following her and believes cva is not ruled out and recommend a loop recorder. I called Dr. Young's office to request this follow up. She worked with PT today, who are recommending continued inpatient rehab and possibly short term rehab. She is agreeable. (2) HTN (hypertension) Current Visit: No Status: Acute Code(s): I10 - ESSENTIAL (PRIMARY) HYPERTENSION SNOMED Code(s): 19912817 Comment: Poorly controlled; will add back losartan, as orthostatic vitals were negative. (3) Type 2 diabetes mellitus Current Visit: No Status: Acute Comment: Poorly controlled here while we are holding her po meds. Continue sliding scale coverage. Status and Disposition: Needs short term rehab and OT per PT recommendations.
--- NOTE | 2017-09-03 00:44 | PN ---
NEUROLOGICAL FOLLOWUP: DATE OF FOLLOWUP: DATE OF DICTATION: 09/02/17 PATIENT OF: Dr. Rose. HISTORY: This 52-year-old woman had sustained some right leg weakness. She feels stronger today. She has had a mild nonspecific headache. She said when she woke up this morning, she had a little bit of numbness in her left leg, but that has gone now. She says she has no other complaints and has been able to walk and would like to go home. MEDICATIONS: Include: 1. Aspirin 81 mg daily. 2. Lipitor 20 mg daily. 3. Humalog with a sliding scale. Test results showed a normal CTA of head and neck. An echo that was normal. An MRI scan that was normal. I reviewed an EEG that was normal. Of note, yesterday when [place] NP sat her up, she had a significant orthostatic drop of 20 points and needed further fluid. PHYSICAL EXAMINATION: On exam temperature 97.9, pulse 69, respirations 22, blood pressure 120/63. She was alert and oriented with normal speech and comprehension. Cranial nerves II through XII were intact. Motor exam revealed normal tone. She had no weakness in the upper extremities, but had a slight right pronator drift. She had weakness in the right leg that has persisted, but has somewhat improved from yesterday. She is quicker to move that and has trace weakness in biceps femoris and quadriceps, trace to 5-/5 in plantarflexion and dorsiflexion. Strength on the left side was intact. She was able to walk, although bore weight on the right leg, more than the left. Reflexes were 1 and equal, toes were downgoing. She had intact symmetric sensation to light touch bilaterally. Chest clear. Cardiovascular: Regular rate and rhythm. Abdomen: Soft with positive bowel sounds. I reviewed her testing. Her MRI scan was normal. CTA was normal. Her echo was normal. Her LDL was 87. Her BMP today was intact. Her glucose was 286. CBC today was normal. Myriam will need to go home on antiplatelet medicine. I would probably go with 325 mg of aspirin rather than 81 and I am going to let Dr. Rose know this. She should also have an increase in her statin to decrease her tissue for a target of an LDL below 70. Despite the negative MRI scan, she has a slight right pronator drift and right leg weakness, which is improved today, but still persistent. I think she has had a small stroke, what her son said to me yesterday was that she became lightheaded before she collapsed limply and she felt hot flushed and before this. She does not remember telling her son that she was lightheaded, but he says that she clearly said this and that there was no shaking when she collapsed. She was also orthostatic and needed fluids when [place] evaluated her. I think that she fainted but may have had decreased perfusion across the small blood vessel. Her EEG was normal and even though this does not rule out seizures, I think with this history, I would not treat with anticonvulsants. I think that this most likely is secondary to some vascular disease that we are not seeing on her CTA rather than cardioembolic, but given her age and that she has had a few fainting spells including a few years ago, I think it would be reasonable to monitor as an outpatient for an arrhythmia and speaking to Dr. Rose to set this up. I will see her back in followup and I have asked the nurse to get Physical therapy to see her today, assess her stability. She is getting a transesophageal echo as per the Hospitalist. Thank you for sharing her case. [id number]/[facility] #: [id number] JORGE A
[2017-09-03] MEDS: traMADol TAB* 50 MG PO PRN ×3 (05:34→19:53)
[2017-09-03] MEDS: Heparin VIAL(*) 5000 UNITS/ML VIAL (FIVE THOUSAND) SUBCUT SCH ×3 (05:35→22:56)
[2017-09-03] MEDS: Insulin LISPRO* 1 UNITS UNIT SUBCUT SCH ×3 (08:36→16:52)
[2017-09-03] MEDS: Atorvastatin* 40 MG TAB PO SCH (08:36)
[2017-09-03] MEDS: Aspirin TAB* 325 MG PO SCH (08:36)
[2017-09-03] MEDS: Losartan TAB* 25 MG PO SCH (08:36)
--- NOTE | 2017-09-03 15:12 | PN ---
Subjective Date of Service: 09/03/17 Interval History: Strength improving on right side. Denies other complaints. has 16 yo son who is currently being taken care of by her other age 30s son. Preferring home. Got SOB with PT, made it to doorway before returning. Family History: Unchanged from Admission Social History: Unchanged from Admission Past Medical History: Unchanged from Admission Objective Active Medications: Acetaminophen (Tylenol Tab*) 650 mg PO Q4H PRN PRN Reason: FEVER/PAIN Last Admin: 09/02/17 12:12 Dose: 650 mg Albuterol (Ventolin Hfa Inhaler*) 2 puff INH Q4H PRN PRN Reason: SOB/WHEEZING Aspirin (Aspirin Tab*) 325 mg PO DAILY [facility] Last Admin: 09/03/17 08:36 Dose: 325 mg Atorvastatin Calcium (Lipitor*) 40 mg PO DAILY [facility] Last Admin: 09/03/17 08:36 Dose: 40 mg Dextrose (D50w Syringe 50 Ml*) 12.5 gm IV PUSH .FOR FS < 60 - SS PRN PRN Reason: FS < 60 Heparin Sodium (Porcine) (Heparin Vial(*)) 5,000 units SUBCUT Q8HR [facility] Last Admin: 09/03/17 13:44 Dose: 5,000 units Insulin Human Lispro (Humalog*) 0 units SUBCUT AC [facility] PRN Reason: Protocol Last Admin: 09/03/17 12:16 Dose: 3 units Lorazepam (Ativan Inj*) 1 mg IV PUSH ONCE PRN PRN Reason: ANXIETY Last Admin: 09/01/17 18:12 Dose: 1 mg Losartan Potassium (Cozaar Tab*) 100 mg PO DAILY [facility] Last Admin: 09/03/17 08:36 Dose: 100 mg Ondansetron HCl (Zofran Inj*) 4 mg IV Q6H PRN PRN Reason: NAUSEA Last Admin: 09/02/17 04:41 Dose: 4 mg Tramadol HCl (Ultram*) 50 mg PO Q6H PRN PRN Reason: PAIN Last Admin: 09/03/17 13:43 Dose: 50 mg Vital Signs - 8 hr 09/03/17 09/03/17 09/03/17 07:18 07:45 10:59 Temperature 98.4 F 98.4 F Pulse Rate 65 60 Respiratory 18 18 16 Rate Blood Pressure 136/79 120/62 (mmHg) O2 Sat by Pulse 98 98 Oximetry 09/03/17 13:43 Temperature Pulse Rate Respiratory 18 Rate Blood Pressure (mmHg) O2 Sat by Pulse Oximetry Oxygen Devices in Use Now: None Appearance: NAD Eyes: No Scleral Icterus, PERRLA Ears/Nose/Mouth/Throat: NL Teeth, Lips, Gums, Mucous Membranes Moist Respiratory: Symmetrical Chest Expansion and Respiratory Effort Cardiovascular: NL Sounds; No Murmurs; No JVD, RRR Neurological: Alert and Oriented x 3, - - right hip flexion 4/5. right arm with some slight pronator drift. right bicep 5-/5. Result Diagrams: 09/02/17 05:01 09/02/17 05:01 Additional Lab and Data: Laboratory Results - last 24 hr 09/02/17 09/02/17 09/03/17 16:57 19:55 07:45 POC Glucose (mg/dL) 200 H 163 H 273 H 09/03/17 11:12 POC Glucose (mg/dL) 172 H Assess/Plan/Problems-Billing Assessment: 52 yo female PMH DM, HTN, asthma, HLD p/w syncope. Brain MRI and CTA head negative but still suspicion for small CVA per Neurology. Improving. Planned holter vs loop recorder as an outpatient to determine if pAfib. - Patient Problems (1) Syncope and collapse Current Visit: Yes Status: Acute Code(s): R55 - SYNCOPE AND COLLAPSE SNOMED Code(s): 936700322 Comment: Work up has thus far been negative. s/p CTA because she has a breast mass and experienced syncope, but it was also negative. She has had no events on tele. Neurology is following her and believes cva is not ruled out and recommend a loop recorder. Dr. Young's office was called to request this follow up. Continue PT, follow up recs. May be candidate for PMRU. (2) DVT prophylaxis Current Visit: No Status: Acute Code(s): VWA2036 - SNOMED Code(s): 551207578 Comment: SCDs (3) Full code status Current Visit: No Status: Acute Code(s): Z78.9 - OTHER SPECIFIED HEALTH STATUS SNOMED Code(s): 637939783 (4) HTN (hypertension) Current Visit: No Status: Acute Code(s): I10 - ESSENTIAL (PRIMARY) HYPERTENSION SNOMED Code(s): 50071683 Comment: better controlled on losartan 100mg (5) Type 2 diabetes mellitus Current Visit: No Status: Acute Comment: Poorly controlled here while we are holding her po meds. Continue sliding scale coverage. Status and Disposition: Needs short term rehab and OT per PT recommendations. Attending: Albino Carter
[2017-09-04 04:21] LABS: ABS Basophils 0 10^3/ul (0-0.2); ABS Eosinophils 0.2 10^3/ul (0-0.6); ABS Lymphocytes 3.5 10^3/ul (1.0-4.8); ABS Monocytes 0.5 10^3/ul (0-0.8); ABS Neutrophils 5.4 10^3/ul (1.5-7.7); ABS Nucleated RBC 0 10^3/ul; Eosinophil % 1.6 % (0-6); Hematocrit 37 % (35-47); Hemoglobin 12.2 g/dl (12.0-16.0); Lymphocyte % 36.7 % (25-47); Mean Corpuscular HGB Conc 33 g/dl (31-36); Mean Corpuscular Hemoglobin 29 pg (27-31); Mean Corpuscular Volume 87 fL (80-97); Mean Platelet Volume 8 um3 (7.4-10.4); Nucleated Red Blood Cells % 0.1; Platelet Count 365 10^3/ul (150-450); Red Blood Count 4.27 10^6/ul (4.0-5.4); Red Cell Distribution Width 15 % (10.5-15); White Blood Count 9.6 10^3/ul (3.5-10.8)
[2017-09-04] MEDS: Heparin VIAL(*) 5000 UNITS/ML VIAL (FIVE THOUSAND) SUBCUT SCH ×3 (05:39→20:34)
[2017-09-04] MEDS: Atorvastatin* 40 MG TAB PO SCH (08:43)
[2017-09-04] MEDS: Aspirin TAB* 325 MG PO SCH (08:43)
[2017-09-04] MEDS: Insulin LISPRO* 1 UNITS UNIT SUBCUT SCH ×3 (08:43→18:23)
[2017-09-04] MEDS: Losartan TAB* 25 MG PO SCH (08:43)
--- NOTE | 2017-09-04 09:03 | PN ---
Subjective Date of Service: 09/04/17 Interval History: Feeling better each day. still weak on right. Has arranged father of son to care for her youngest son and now wanting to go to rehab in [facility]. Afebrile, hemodynamically stable. left 4th, 5th toe numbness stable. Family History: Unchanged from Admission Social History: Unchanged from Admission Past Medical History: Unchanged from Admission Objective Active Medications: Acetaminophen (Tylenol Tab*) 650 mg PO Q4H PRN PRN Reason: FEVER/PAIN Last Admin: 09/02/17 12:12 Dose: 650 mg Albuterol (Ventolin Hfa Inhaler*) 2 puff INH Q4H PRN PRN Reason: SOB/WHEEZING Aspirin (Aspirin Tab*) 325 mg PO DAILY [facility] Last Admin: 09/04/17 08:43 Dose: 325 mg Atorvastatin Calcium (Lipitor*) 40 mg PO DAILY [facility] Last Admin: 09/04/17 08:43 Dose: 40 mg Dextrose (D50w Syringe 50 Ml*) 12.5 gm IV PUSH .FOR FS < 60 - SS PRN PRN Reason: FS < 60 Heparin Sodium (Porcine) (Heparin Vial(*)) 5,000 units SUBCUT Q8HR [facility] Last Admin: 09/04/17 05:39 Dose: 5,000 units Insulin Glargine (Lantus(*)) 8 units SUBCUT Q24H [facility] Insulin Human Lispro (Humalog*) 0 units SUBCUT AC [facility] PRN Reason: Protocol Last Admin: 09/04/17 08:43 Dose: 6 units Lorazepam (Ativan Inj*) 1 mg IV PUSH ONCE PRN PRN Reason: ANXIETY Last Admin: 09/01/17 18:12 Dose: 1 mg Losartan Potassium (Cozaar Tab*) 100 mg PO DAILY [facility] Last Admin: 09/04/17 08:43 Dose: 100 mg Ondansetron HCl (Zofran Inj*) 4 mg IV Q6H PRN PRN Reason: NAUSEA Last Admin: 09/02/17 04:41 Dose: 4 mg Tramadol HCl (Ultram*) 50 mg PO Q6H PRN PRN Reason: PAIN Last Admin: 09/03/17 19:53 Dose: 50 mg Vital Signs - 8 hr 09/04/17 09/04/17 09/04/17 03:22 07:32 07:44 Temperature 98.2 F 98.5 F Pulse Rate 55 63 Respiratory 16 16 16 Rate Blood Pressure 124/65 129/78 (mmHg) O2 Sat by Pulse 97 96 Oximetry Oxygen Devices in Use Now: None Appearance: NAD Eyes: No Scleral Icterus, PERRLA Ears/Nose/Mouth/Throat: NL Teeth, Lips, Gums, Mucous Membranes Moist Neck: NL Appearance and Movements; NL JVP, Trachea Midline Respiratory: Symmetrical Chest Expansion and Respiratory Effort, Clear to Auscultation Cardiovascular: NL Sounds; No Murmurs; No JVD, RRR Abdominal: NL Sounds; No Tenderness; No Distention, No Hepatosplenomegaly Extremities: No Edema, No Clubbing, Cyanosis Skin: No Rash or Ulcers, No Nodules or Sclerosis Neurological: Alert and Oriented x 3, - - right bicep 4-/5, right english lecturer 4-/5. right hip flexion 4+/5. CNII-XII intact. numbness left 4th, 5th toes. Result Diagrams: 09/04/17 04:09 09/02/17 05:01 Additional Lab and Data: Laboratory Results - last 24 hr 09/03/17 09/03/17 09/03/17 11:12 16:48 20:09 WBC RBC Hgb Hct MCV MCH MCHC RDW Plt Count MPV Neut % (Auto) Lymph % (Auto) Winn % (Auto) Eos % (Auto) Baso % (Auto) Absolute Neuts (auto) Absolute Lymphs (auto) Absolute Monos (auto) Absolute Eos (auto) Absolute Basos (auto) Absolute Nucleated RBC Nucleated RBC % POC Glucose (mg/dL) 172 H 121 H 172 H 09/04/17 09/04/17 04:09 07:41 WBC 9.6 RBC 4.27 Hgb 12.2 Hct 37 MCV 87 MCH 29 MCHC 33 RDW 15 Plt Count 365 MPV 8 Neut % (Auto) 56.1 Lymph % (Auto) 36.7 Winn % (Auto) 5.5 Eos % (Auto) 1.6 Baso % (Auto) 0.1 Absolute Neuts (auto) 5.4 Absolute Lymphs (auto) 3.5 Absolute Monos (auto) 0.5 Absolute Eos (auto) 0.2 Absolute Basos (auto) 0 Absolute Nucleated RBC 0 Nucleated RBC % 0.1 POC Glucose (mg/dL) 211 H Microbiology and Other Data: Assess/Plan/Problems-Billing Assessment: 52 yo female PMH DM (uncontrolled, A1C 10.2 on 3 oral agents), HTN, asthma, HLD p/w syncope. Brain MRI and CTA head negative but still suspicion for small CVA per Neurology. Improving but continued right side strenght deficits. Planned holter vs loop recorder as an outpatient to determine if pAfib. - Patient Problems (1) Syncope and collapse Current Visit: Yes Status: Acute Code(s): R55 - SYNCOPE AND COLLAPSE SNOMED Code(s): 959055243 Comment: Work up has thus far been negative. s/p CTA because she has a breast mass and experienced syncope, but it was also negative. She has had no events on tele. Neurology is following her and believes cva is not ruled out and recommend a loop recorder. Dr. Young's office was called to request this follow up. Continue PT, follow up recs. Hopeful for PMRU transfer 09/05 or as soon as available. (2) DVT prophylaxis Current Visit: No Status: Acute Code(s): DFQ7494 - SNOMED Code(s): 562434168 Comment: SCDs (3) Full code status Current Visit: No Status: Acute Code(s): Z78.9 - OTHER SPECIFIED HEALTH STATUS SNOMED Code(s): 366590910 (4) HTN (hypertension) Current Visit: No Status: Acute Code(s): I10 - ESSENTIAL (PRIMARY) HYPERTENSION SNOMED Code(s): 85664580 Comment: better controlled on losartan 100mg (5) Type 2 diabetes mellitus Current Visit: No Status: Acute Comment: Poorly controlled here while we are holding her po meds. Continue sliding scale coverage. Adding lantus 8U qam. A1C here 10.2, pt says was better at last visit with PCP. Status and Disposition: Needs short term rehab and OT per PT recommendations. Hopeful for PMRU 09/05 Attending: Albino Carter
[2017-09-04] MEDS: Insulin GLARGINE(*) 1 UNITS UNIT SUBCUT SCH (09:46)
[2017-09-04] MEDS: Docusate CAP* 100 MG PO PRN (16:45)
[2017-09-04] MEDS: Senna TAB PO PRN (16:45)
[2017-09-05] MEDS: Heparin VIAL(*) 5000 UNITS/ML VIAL (FIVE THOUSAND) SUBCUT SCH (05:36)
[2017-09-05] MEDS: Losartan TAB* 25 MG PO SCH (07:45)
[2017-09-05] MEDS: Aspirin TAB* 325 MG PO SCH (07:45)
[2017-09-05] MEDS: Insulin GLARGINE(*) 1 UNITS UNIT SUBCUT SCH (07:46)
[2017-09-05] MEDS: Atorvastatin* 40 MG TAB PO SCH (07:46)
[2017-09-05 07:50] VITALS: BP 145/84
[2017-09-05] MEDS: Insulin LISPRO* 1 UNITS UNIT SUBCUT SCH ×2 (08:51→12:41)
[2017-09-05] MEDS ORDERED: Magnesium Hydroxide LIQ* 30 ML UDC PO PRN (10:56)
[2017-09-05] MEDS: Acetaminophen TAB* 325 MG PO PRN (11:32)
[2017-09-05] MEDS: Docusate CAP* 100 MG PO PRN (11:32)
[2017-09-05] MEDS: Senna TAB PO PRN (11:32)
--- NOTE | 2017-09-06 16:32 | DS ---
DISCHARGE SUMMARY: DATE OF ADMISSION: 09/01/17 DATE OF DISCHARGE: 09/05/17 ADMITTING PROVIDER: Titus Bay NP ATTENDING PHYSICIAN: Albino Carter MD PRIMARY CARE PROVIDER: Dr. Bruno. CONSULTING NEUROLOGIST: Dr. Alvarado. CHIEF COMPLAINT: Syncope. PRINCIPAL DIAGNOSIS: Suspected seizure though with negative imaging studies to date. HISTORY OF PRESENT ILLNESS AND HOSPITAL COURSE: Ms. Deluna is a 52-year-old female, who syncopized in the kitchen. She had felt flush prior. Denied any chest pain or headache. She did have previous abdominal discomfort in the right upper quadrant, epigastric area that subsequently resolved. She did not have loss of urine. She was very slow to respond in the emergency room, confused, and there was some concern for a postictal state. Upon admission, Dr. Alvarado of Neurology was consulted. Initial CT noncontrast showed no evidence of acute intracranial abnormality. Brain MRI, CTA of the head and neck were obtained along with the EEG. Brain MRI demonstrated no restriction diffusion, there was a motion artifact degradation of the study. Head CTA demonstrated no central intracranial large vessel arterial stenosis or occlusion and neck angiogram showed codominant vertebral arteries and no evidence of carotid or vertebral artery stenosis. The EEG showed no major abnormalities but was somewhat limited by artifact. She continued to have some right-sided neurological deficits with 4/5 weakness initially in her right biceps and solutions consultant, hip flexion, and slight difficulty with her writing that improved throughout the admission. There was still concern giving some of the imaging studies were degraded by motion artifact that she had a CVA. There was echo with bubble study, transthoracic, which showed ejection fraction 60% to 65% . No patent foramen ovale was demonstrated (a negative bubble study.) No thrombus was identified. The patient was worked with physical therapy daily and made slow progress and was recommended to follow up with rehab in the PMR unit, which she now being discharged to. She was started on atorvastatin 40 mg daily and aspirin 81 mg daily. Her A1c was noted to be elevated at 10.2 and increased from prior records of 7.9 on 05/23/17 as an outpatient and recently been put on Januvia. The patient does attest that her diet worsened somewhat over the holidays, but unusually has blood sugar readings between 140s and 160s at home. The patient has been recommended to follow up with electrode turner and finisher to rule out atrial fibrillation as a cause of her CVA and consideration for a loop recorder or Holter study. No evidence of paroxysmal atrial fibrillation was observed on telemetry throughout her stay. She should follow up with Dr. Bruno within 5 days of discharge from [facility] and Dr. Alvarado within 2 to 4 weeks of discharge. DISCHARGE MEDICATIONS: Include: 1. Aspirin 81 mg daily. 2. Albuterol 2 puffs inhaled q.4 hours p.r.n. 3. Atorvastatin 40 mg daily. 4. Glipizide 10 mg p.o. b.i.d. 5. Hydrochlorothiazide 25 mg p.o. daily. 6. Losartan 100 mg p.o. daily. 7. Metformin 1000 mg p.o. b.i.d. 8. Sitagliptin (Januvia) 50 mg p.o. daily. DISCHARGE DIET: Heart healthy, carbohydrate consistent, unchanged. ACTIVITY LEVEL: No restrictions, but requiring intense physical therapy, [facility] unit given the residual right-sided deficits. FOLLOWUP: Please follow up with Dr. Bruno within 5 days of discharge from [facility], Dr. Kirill Alvarado within 2 to 4 weeks of discharge, Dr. Young within 2 weeks of discharge. TIME SPENT ON DISCHARGE: Thirty-five minutes. [id number]/[facility] #: [id number] [facility]
== END 2017-09-05 13:27 | DRG 101 ==
LOC: ED 08:34 → MEDTELE 11:40 → OBSVTOIN 09-03 15:36
PROVIDERS: ADMIT Internal Medicine; ATTEND Internal Medicine
DX: R56.9 Unspecified convulsions (principal); E11.9 Type 2 diabetes mellitus without complications; I10 Essential (primary) hypertension; E78.5 Hyperlipidemia, unspecified; J45.909 Unspecified asthma, uncomplicated; Z79.84 Long term (current) use of oral hypoglycemic drugs; Z79.899 Other long term (current) drug therapy; Z91.010 Allergy to peanuts; Z80.0 Family history of malignant neoplasm of digestive organs; R55 Syncope and collapse; M62.81 Muscle weakness (generalized); Z91.012 Allergy to eggs
CPT/HCPCS: 36415; 70450; 70496; 70498; 70551; 71045; 71275; 80048; 80053; 80061; 80307; 80320; 81003; 82140; 82550; 83036; 83605; 83735; 83880; 84443; 84484; 85025; 85610; 86140; 93005; 93306; 95819; A9270-GY; G0378; G0480; G8978-GP-CK; G8979-GP-CI; J1644; J2060; J2405; J3475; Q9967

== ENCOUNTER 2017-09-05 12:20 | Inpatient (IN) | payer OTHER ==
[2017-09-05] MEDS ORDERED: Magnesium Hydroxide LIQ* 30 ML UDC PO PRN (15:35)
[2017-09-05] MEDS ORDERED: Senna TAB PO PRN (15:35)
[2017-09-05] MEDS ORDERED: Dextrose 50% Syringe 50 ML* 25 GM/50 ML SYRINGE IV PUSH PRN (15:43)
[2017-09-05] MEDS: Insulin LISPRO* 1 UNITS UNIT SUBCUT SCH ×2 (17:23→20:55)
[2017-09-05] MEDS: metFORMIN* 500 MG TAB PO SCH (17:26)
[2017-09-05] MEDS: glipiZIDE TAB* 5 MG PO SCH (17:26)
[2017-09-05] MEDS: Acetaminophen TAB* 325 MG PO PRN (20:53)
[2017-09-05] MEDS: Heparin VIAL(*) 5000 UNITS/ML VIAL (FIVE THOUSAND) SUBCUT SCH (20:54)
[2017-09-05] MEDS: Docusate CAP* 100 MG PO SCH (20:54)
--- NOTE | 2017-09-05 22:09 | HP ---
HISTORY AND PHYSICAL: DATE OF ADMISSION: 09/05/17 REASON FOR ADMISSION: Stroke with right-sided weakness. HISTORY OF PRESENT ILLNESS: Myriam Deluna is a 52-year-old female. She has a medical history significant for diabetes mellitus. According to the patient, she was getting ready for school on the morning of 09/01/17. She was making breakfast for her 16-year-old son and getting ready to take him to school as well. She went to reach for her car keys and does not remember anything following that. Her son called 911 because she was on the ground. When she came to the ED, she was slow to respond and confused. The patient was evaluated in the emergency room. Her blood sugar was slightly elevated. The patient cleared and was noted to have right-sided weakness. She was seen in consultation by Dr. Alvarado. Dr. Alvarado felt she might have had a stroke, but she was outside the window for TPA. The patient had a workup including a CT angiogram of her head, which showed no intracranial large vessel arterial stenosis or occlusion. She had an MRI of her brain on 09/01/17, the day of admission, that was limited by motion artifact but did not detect a stroke. It was felt that clinically the patient had suffered a stroke. The patient did have an echocardiogram as well showing an ejection fraction of 60% to 65% with normal LV systolic function. The patient was started on aspirin a day by Dr. Alvarado. She was also treated with Lipitor and it was recommended that she continue her diabetes control. The patient did have an EEG that did not reveal any seizure activity. The patient was felt to have physical therapy and occupational therapy needs. She is now being admitted for inpatient rehab so she might return to independent living. PAST MEDICAL HISTORY: Significant for diabetes mellitus. Normally at home, she takes metformin, glipizide, Januvia, as well as Cozaar, hydrochlorothiazide , and Lipitor. CURRENT MEDICATIONS: Include: 1. A full strength aspirin. 2. Lipitor. 3. Sliding scale insulin. 4. Cozaar. 5. Bowel medications. ALLERGIES: She does have a PEANUT allergy. SOCIAL HISTORY: The patient is a nonsmoker and nondrinker. She works at [employer] in the [employer]. She lives in a town house with 10 steps to enter. Prior to admission, she was independent with her activities of daily living. REVIEW OF SYSTEMS: The patient reports difficulties with constipation. PHYSICAL EXAMINATION VITAL SIGNS: The patient's temperature is 98.2, blood pressure is 134/66, pulse 57, respirations 16. HEENT: Her face appears to be symmetric. I did not detect any weakness on the fascial muscles. LUNGS: Sounded clear to auscultation bilaterally. HEART: Sounds were regular, S1 and S2, audible. ABDOMEN: Soft and nontender. EXTREMITIES: Her right arm and leg had slightly increased tone. Her peripheral pulses were intact. NEUROLOGIC: The patient was awake, alert, and oriented. Muscle strength on her right side was about 4/5, left side was about 5/5. FUNCTIONAL EXAM: The patient transfers with min assist. ASSESSMENT: Cerebrovascular accident with right-sided weakness. PLAN: Integrate her into a comprehensive and therapeutic rehab program on the following goals: 1. Physical Therapy will see the patient. They are going to work on functional transfer training and ambulation training with a walker. 2. Occupational Therapy will see the patient and work on her activities of daily living including toileting and toilet transfers. 3. Heparin for DVT prophylaxis. 4. For her diabetes, we will resume her metformin and glipizide. Continue sliding scale insulin. 5. For secondary stroke prevention, we are going to continue on aspirin as well as her Lipitor 40 mg daily. 6. For her constipation, we are going to order lactulose for 1 dose. 7. For her blood pressure, we will continue Cozaar and we will resume her hydrochlorothiazide tomorrow. 8. Family training as appropriate. 9. SSRIs including Prozac as appropriate. 10. business services coordinator will be closely involved to make sure that any services and equipment the patient requires are in place prior to discharge. 11. Home with appropriate services. ESTIMATED LENGTH OF STAY: One week. [id number]/[facility] #: [id number] JORGE A
[2017-09-06] MEDS: Acetaminophen TAB* 325 MG PO PRN ×2 (05:50→21:12)
[2017-09-06] MEDS: Heparin VIAL(*) 5000 UNITS/ML VIAL (FIVE THOUSAND) SUBCUT SCH ×3 (05:51→21:16)
[2017-09-06] MEDS: glipiZIDE TAB* 5 MG PO SCH ×2 (08:03→17:21)
[2017-09-06] MEDS: Aspirin EC TAB* 325 MG PO SCH (08:04)
[2017-09-06] MEDS: metFORMIN* 500 MG TAB PO SCH ×2 (08:04→17:20)
[2017-09-06] MEDS: Insulin LISPRO* 1 UNITS UNIT SUBCUT SCH ×4 (08:04→20:53)
[2017-09-06] MEDS: Losartan TAB* 25 MG PO SCH (08:04)
[2017-09-06] MEDS: Docusate CAP* 100 MG PO SCH ×2 (08:09→21:14)
--- NOTE | 2017-09-06 12:44 | PMRUTEAM ---
PMRU: Goals Current Status: Nursing: Current Status Skin Deviations [Right Knee] Abrasion Skin Deviations [Left Upper Bruise Arm] Bladder Current Status voiding without difficulty Bowel Current Status bmt his am. refused colace Nutrition Current Status good appetite Medication Current Status tylenol for pain. Physical Therapy: Current Status Bed Mobility Assistance Supervision Transfer Moblility Assistance Min Assist Ambulation Assistance Contact guard Ambulation Assistive Devices Rolling Walker Stairs Assistance Not Tested Stairs Recommended Devices One Rail Number of Stairs 12 Occupational Therapy: Current Status Upper Body Dressing Supervision Lower Body Dressing Min Assist Bathing Min Assist Toileting Supervision Toilet Transfer Contact Guard Assist Shower Transfer Contact Guard Assist Eating Independent Rec Therapy: Current Status Summary of Assessment and Pt. was very talkative and engaged in conversation Clinical Impression - pt. identified with passions and active involvement in them prior to admission. Pt. has leisure activities in her room and was open to leisure visits. Treatment Goals Pt. will engage in leisure activities while on the unit. Treatment Plan Provide RT services and encourage involvement. Social Work: Current Status Discharge Plan home care svs and family support Potential for Family Training pt's family is involved and supportive Anticipated Discharge Home Destination Discharge With home care svs and family support Goals: Occupational Therapy: Initial Goals Goals to be Completed in (Days 3 -4 days ) Upper Body Bathing Routine Modified Independent with Lower Body Bathing Routine Modified Independent with Upper Body Dressing Routine Independent Lower Body Dressing Routine Independent Toilet Hygeine and Clothing Modified Independent with Management Routine Toilet Transfer Routine Modified Independent with Step-In Shower Transfer Modified Independent with Routine Functional Transfers for ADL Modified Independent with Grooming Routine Independent Feeding Routine Independent Light Housekeeping Tasks Modified Independent with Nursing: Goals Bladder Goal independent Bowel Goal independent Nutrition Goal 100% of all meals Medication Goal independent Social Work: Goals Discharge Plan home care svs and family support Potential for Family Training pt's family is involved and supportive Anticipated Discharge Home Destination Discharge With home care svs and family support PHYSICAL THERAPY: Independent transfers, Independent ambulation 150 feet with FWW, independent bed mobility Care Plan: Care Plan Cardiovascular- Improve/Maintain Start: 09/06/17 01:14 Freq: DAILY Status: Active Target: Protocol: Activity Type Activity Date Activity User E-Sign Co-Sign Detail Recorded Client Recorded Date Recorded By Document 09/06/17 11:21 [id number] [id number] 09/06/17 11:22 [id number] 09/06/17 11:21 PMRU Outcome: Cardiovascular Vital Signs q Shift for 48hrs Then BID Yes Daily Weight Ordered No Current Cardiovascular Outcome/Goal Maintain/ Achieve Baseline HR, BP , Perfusion Improve HR Within Prescribed Parameters Maintain/ Improve Perfusion Maintain/ Achieve Hemodynamic Stability Progression Toward Outcome/Goal Progressing DVT Prophylaxis- Improve/Maintain Start: 09/06/17 01:14 Freq: DAILY Status: Active Target: Protocol: Activity Type Activity Date Activity User E-Sign Co-Sign Detail Recorded Client Recorded Date Recorded By Document 09/06/17 11:21 [id number] [id number] 09/06/17 11:22 [id number] 09/06/17 11:21 PMRU Outcome: DVT Prophylaxis Outcome/Goals Remains Free of DVT Free of complications from current DVT TEDS Stockings on Every AM, Off at HS Progression Toward Outcome/Goals Progressing Discharge Planning - Improve/Maintain Start: 09/06/17 01:14 Freq: DAILY Status: Active Target: Protocol: Activity Type Activity Date Activity User E-Sign Co-Sign Detail Recorded Client Recorded Date Recorded By Document 09/06/17 01:14 [id number] [id number] 09/06/17 01:15 [id number] 09/06/17 01:14 PMRU Outcome: Discharge Planning Update Patient Family No Outcome/Goals Demonstrates Understanding of Discharge Plan Education-Improve/Maintain Start: 09/06/17 01:14 Freq: DAILY Status: Active Target: Protocol: Activity Type Activity Date Activity User E-Sign Co-Sign Detail Recorded Client Recorded Date Recorded By Document 09/06/17 11:21 [id number] 09/06/17 11:22 [id number] 09/06/17 11:21 PMRU Outcome: Education Outcome/Goals Demonstrate/ Verbalize Understanding of Written Discharge Instructions Encourage Questions Progression Toward Outcome/Goals Progressing Medication Administration Start: 09/06/17 01:14 Freq: DAILY Status: Active Target: Protocol: Activity Type Activity Date Activity User E-Sign Co-Sign Detail Recorded Client Recorded Date Recorded By Document 09/06/17 11:21 [id number] 09/06/17 11:22 [id number] 09/06/17 11:21 PMRU Outcome: Medication Administration Assess Patient Knowledge/Teach Med Yes Education for all Meds Outcome/Goals Patient Independent with Medication Administration at Home Progression Towards Outcome/Goals Progressing Is Patient Going Home on Lovenox? No Metabolic Status- Improve/Maintain Start: 09/06/17 01:14 Freq: DAILY Status: Active Target: Protocol: Activity Type Activity Date Activity User E-Sign Co-Sign Detail Recorded Client Recorded Date Recorded By Document 09/06/17 11:21 [id number] 09/06/17 11:22 [id number] 09/06/17 11:21 PMRU Outcome: Metabolic Status Have Fingersticks Been Ordered Yes Fingerstick Order Frequency AC & HS Outcome/Goals Maintain/ Improve Metabolic Status Demonstrate Knowledge of Prevention/ Treatment of Metabolic Imbalances Progression Toward Outcome/Goals Progressing Neurological- Improve/Maintain Start: 09/06/17 01:14 Freq: DAILY Status: Active Target: Protocol: Activity Type Activity Date Activity User E-Sign Co-Sign Detail Recorded Client Recorded Date Recorded By Document 09/06/17 11:21 [id number] [id number] 09/06/17 11:22 [id number] 09/06/17 11:21 PMRU Outcome: Neurological Weakness/Aphasia Weakness Right Side Outcome/Goals Maintain/ Achieve Baseline Neurological Status Improve Neurological Status Maintain/ Improve Strength/ROM Progression Toward Outcome/Goals Progressing Pain/Comfort- Improve/Maintain Start: 09/06/17 01:14 Freq: DAILY Status: Active Target: Protocol: Activity Type Activity Date Activity User E-Sign Co-Sign Detail Recorded Client Recorded Date Recorded By Document 09/06/17 11:21 [id number] 09/06/17 11:22 [id number] 09/06/17 11:21 PMRU Outcome: Pain/Comfort Outcome/Goals Demonstrates Knowledge and Use of Available Comfort Measures Maintain Comfort Level Allowing Patient to Fully Participate in Rehab Progression Toward Outcome/Goals Progressing Medicine Note: Length of Stay: 3 days Anticipated Discharge Destination: Home Tentative Discharge Date: 09/09/17 Discharged to: Home
--- NOTE | 2017-09-06 13:31 | PN ---
Progress Note Date of Service: 09/06/17 Note: MYRIAM SIMENTAL was visited. Therapy notes read and reviewed. Myriam was discussed in interdisciplinary team rounds. She has been walking fairly well, but still needs some work on stairs and endurance. Her Metformin and Glipizide have been restarted. Will add Januvia. Current Medications: Active Medications Generic Name Dose Route Start Last Admin Trade Name Freq PRN Reason Stop Dose Admin Acetaminophen 650 mg 09/05/17 15:35 09/06/17 05:50 Tylenol Tab* PO 650 mg Q6H PRN Administration FEVER/PAIN Aspirin 325 mg 09/06/17 09:00 09/06/17 08:04 Ecotrin Ec Tab* PO 325 mg DAILY RAKEL Administration Atorvastatin Calcium 40 mg 09/06/17 17:00 Lipitor* PO 1700 RAKEL Dextrose 12.5 gm 09/05/17 15:43 D50w Syringe 50 Ml* IV PUSH .FOR FS < 60 - SS PRN FS < 60 Docusate Sodium 100 mg 09/05/17 21:00 09/06/17 08:09 Colace Cap* PO Not Given BID RAKEL Glipizide 2.5 mg 09/05/17 17:00 09/06/17 08:03 Glucotrol Tab* PO 2.5 mg 0800,1700 RAKEL Administration Heparin Sodium (Porcine) 5,000 units 09/05/17 22:00 09/06/17 13:21 Heparin Vial(*) SUBCUT 5,000 units Q8HR RAKEL Administration Insulin Human Lispro 0 - 15 units 09/05/17 16:30 09/06/17 13:20 Humalog* SUBCUT 3 unit ACHS RAKEL Administration Protocol Losartan Potassium 100 mg 09/06/17 09:00 09/06/17 08:04 Cozaar Tab* PO 100 mg DAILY RAKEL Administration Magnesium Hydroxide 30 ml 09/05/17 15:35 Milk Of Magnesia Liq* PO Q6H PRN CONSTIPATION Metformin HCl 500 mg 09/05/17 17:00 09/06/17 08:04 Glucophage* PO 500 mg 0800,1700 RAKEL Administration Senna 2 tab 09/05/17 15:35 Senokot Tab* PO BEDTIME PRN CONSTIPATION Vital Signs: Vital Signs Temp Pulse Resp BP Pulse Ox 98.4 F 65 18 130/72 98 09/06/17 06:03 09/06/17 06:03 09/06/17 06:03 09/06/17 06:05 09/06/17 06:03 Lab Results: Laboratory Results - last 24 hr 09/05/17 09/05/17 09/06/17 16:57 20:46 07:41 POC Glucose (mg/dL) 210 H 100 143 H 09/06/17 12:06 POC Glucose (mg/dL) 165 H Exam: LUNGS: Clear bilaterally HEART: regular rhythm ABDOMEN: Soft, +BS NEUROLOGIC: Alert, oriented. Right leg 4/5, RUE 4+/5 Assessment/Plan: 09/06/17 13:30 1. CVA with right sided weakness: PT/OT. ASA/Lipitor 2. Diabetes Mellitus: Add Januvia to Metformin/Glipizide 3. Hypertension: HCTZ/Cozaar 4. Constipation: Had BM after Metformin resumed 09/06/17 13:32
[2017-09-06] MEDS: Atorvastatin* 40 MG TAB PO SCH (17:20)
[2017-09-07] MEDS: Heparin VIAL(*) 5000 UNITS/ML VIAL (FIVE THOUSAND) SUBCUT SCH ×3 (06:06→21:38)
[2017-09-07] MEDS: glipiZIDE TAB* 5 MG PO SCH ×2 (07:57→17:09)
[2017-09-07] MEDS: Losartan TAB* 25 MG PO SCH (07:57)
[2017-09-07] MEDS: Hydrochlorothiazide TAB* 25 MG PO SCH (07:57)
[2017-09-07] MEDS: metFORMIN* 500 MG TAB PO SCH ×2 (07:57→17:09)
[2017-09-07] MEDS: Aspirin EC TAB* 325 MG PO SCH (07:57)
[2017-09-07] MEDS: PTO: Sitagliptin (NF) 50 MG TAB PO SCH (07:58)
[2017-09-07] MEDS: Insulin LISPRO* 1 UNITS UNIT SUBCUT SCH ×4 (07:59→20:57)
[2017-09-07] MEDS: Docusate CAP* 100 MG PO SCH ×2 (08:00→19:41)
[2017-09-07 08:21] LABS: ABS Basophils 0.1 10^3/ul (0-0.2); ABS Eosinophils 0.1 10^3/ul (0-0.6); ABS Lymphocytes 2.5 10^3/ul (1.0-4.8); ABS Monocytes 0.4 10^3/ul (0-0.8); ABS Nucleated RBC 0 10^3/ul; Eosinophil % 1.3 % (0-6); Hematocrit 36 % (35-47); Hemoglobin 11.9 g/dl (12.0-16.0); Lymphocyte % 31.1 % (25-47); Mean Corpuscular HGB Conc 33 g/dl (31-36); Mean Corpuscular Hemoglobin 29 pg (27-31); Mean Corpuscular Volume 87 fL (80-97); Mean Platelet Volume 9 um3 (7.4-10.4); Nucleated Red Blood Cells % 0; Platelet Count 308 10^3/ul (150-450); Red Blood Count 4.15 10^6/ul (4.0-5.4); Red Cell Distribution Width 14 % (10.5-15); White Blood Count 8.1 10^3/ul (3.5-10.8)
[2017-09-07 08:32] LABS: EGFR Non-African American 97.1 (>60)
[2017-09-07] MEDS: Acetaminophen TAB* 325 MG PO PRN (11:38)
[2017-09-07] MEDS: Atorvastatin* 40 MG TAB PO SCH (17:09)
--- NOTE | 2017-09-07 17:38 | PN ---
Progress Note Date of Service: 09/07/17 Note: ARTURO SIMENTAL was visited. Therapy notes read and reviewed. She is complaining of sciatica type pain down her right leg. She had a similar episode 4 years ago, and took Flexeril. She does not want opioids as they constipate her. Added Januvia Current Medications: Active Medications Generic Name Dose Route Start Last Admin Trade Name Freq PRN Reason Stop Dose Admin Acetaminophen 650 mg 09/05/17 15:35 09/07/17 11:38 Tylenol Tab* PO 650 mg Q6H PRN Administration FEVER/PAIN Aspirin 325 mg 09/06/17 09:00 09/07/17 07:57 Ecotrin Ec Tab* PO 325 mg DAILY RAKEL Administration Atorvastatin Calcium 40 mg 09/06/17 17:00 09/07/17 17:09 Lipitor* PO 40 mg 1700 RAKEL Administration Cyclobenzaprine HCl 10 mg 09/07/17 17:32 Flexeril Tab* PO TID PRN SPASMS Dextrose 12.5 gm 09/05/17 15:43 D50w Syringe 50 Ml* IV PUSH .FOR FS < 60 - SS PRN FS < 60 Docusate Sodium 100 mg 09/05/17 21:00 09/07/17 08:00 Colace Cap* PO Not Given BID RAKEL Glipizide 5 mg 09/07/17 12:43 09/07/17 17:09 Glucotrol Tab* PO 5 mg 0800,1700 RAKEL Administration Heparin Sodium (Porcine) 5,000 units 09/05/17 22:00 09/07/17 15:01 Heparin Vial(*) SUBCUT 5,000 units Q8HR RAKEL Administration Hydrochlorothiazide 12.5 mg 09/07/17 09:00 09/07/17 07:57 Hydrodiuril Tab* PO 12.5 mg DAILY RAKEL Administration Insulin Human Lispro 0 - 15 units 09/05/17 16:30 09/07/17 12:20 Humalog* SUBCUT 3 unit ACHS RAKEL Administration Protocol Losartan Potassium 100 mg 09/06/17 09:00 09/07/17 07:57 Cozaar Tab* PO 100 mg DAILY RAKEL Administration Magnesium Hydroxide 30 ml 09/05/17 15:35 Milk Of Magnesia Liq* PO Q6H PRN CONSTIPATION Metformin HCl 500 mg 09/05/17 17:00 09/07/17 17:09 Glucophage* PO 500 mg 0800,1700 RAKEL Administration Senna 2 tab 09/05/17 15:35 Senokot Tab* PO BEDTIME PRN CONSTIPATION Sitagliptin Phosphate 50 mg 09/07/17 09:00 09/07/17 07:58 Januvia (Nf) PO 50 mg DAILY RAKEL Administration Vital Signs: Vital Signs Temp Pulse Resp BP Pulse Ox 98.3 F 63 18 119/73 98 09/07/17 15:11 09/07/17 15:11 09/07/17 15:11 09/07/17 15:11 09/07/17 15:11 Lab Results: Laboratory Results - last 24 hr 09/06/17 09/07/17 09/07/17 20:47 00:21 07:06 WBC 8.1 RBC 4.15 Hgb 11.9 L Hct 36 MCV 87 MCH 29 MCHC 33 RDW 14 Plt Count 308 MPV 9 Neut % (Auto) 61.6 Lymph % (Auto) 31.1 [place] % (Auto) 5.0 Eos % (Auto) 1.3 Baso % (Auto) 1.0 Absolute Neuts (auto) 5.0 Absolute Lymphs (auto) 2.5 Absolute Monos (auto) 0.4 Absolute Eos (auto) 0.1 Absolute Basos (auto) 0.1 Absolute Nucleated RBC 0 Nucleated RBC % 0 Sodium Potassium Chloride Carbon Dioxide Anion Gap BUN Creatinine Est GFR ( Amer) Est GFR (Non-Af Amer) BUN/Creatinine Ratio Glucose POC Glucose (mg/dL) 114 H 246 H Calcium Total Bilirubin AST ALT Alkaline Phosphatase Total Protein Albumin Globulin Albumin/Globulin Ratio 09/07/17 09/07/17 09/07/17 07:06 07:26 11:41 WBC RBC Hgb Hct MCV MCH MCHC RDW Plt Count MPV Neut % (Auto) Lymph % (Auto) [place] % (Auto) Eos % (Auto) Baso % (Auto) Absolute Neuts (auto) Absolute Lymphs (auto) Absolute Monos (auto) Absolute Eos (auto) Absolute Basos (auto) Absolute Nucleated RBC Nucleated RBC % Sodium 137 Potassium 4.0 Chloride 105 Carbon Dioxide 25 Anion Gap 7 BUN 12 Creatinine 0.64 Est GFR ( Amer) 124.8 Est GFR (Non-Af Amer) 97.1 BUN/Creatinine Ratio 18.8 Glucose 227 H POC Glucose (mg/dL) 234 H 169 H Calcium 9.0 Total Bilirubin 0.30 AST 41 H ALT 66 H Alkaline Phosphatase 113 H Total Protein 6.5 Albumin 3.6 Globulin 2.9 Albumin/Globulin Ratio 1.2 09/07/17 17:00 WBC RBC Hgb Hct MCV MCH MCHC RDW Plt Count MPV Neut % (Auto) Lymph % (Auto) [place] % (Auto) Eos % (Auto) Baso % (Auto) Absolute Neuts (auto) Absolute Lymphs (auto) Absolute Monos (auto) Absolute Eos (auto) Absolute Basos (auto) Absolute Nucleated RBC Nucleated RBC % Sodium Potassium Chloride Carbon Dioxide Anion Gap BUN Creatinine Est GFR ( Amer) Est GFR (Non-Af Amer) BUN/Creatinine Ratio Glucose POC Glucose (mg/dL) 154 H Calcium Total Bilirubin AST ALT Alkaline Phosphatase Total Protein Albumin Globulin Albumin/Globulin Ratio Exam: LUNGS: Clear bilaterally HEART: reg rhythm ABDOMEN: Soft + BS NEUROLOGIC: A & O; slight weakness in right leg Assessment/Plan: 09/07/17 17:36 1. CVA with right sided weakness: PT/OT. ASA/Lipitor 2. Diabetes Mellitus: Metformin/Glipizide/Januvia. Increase Glipizide to 5 mg 3. Hypertension: HCTZ/Cozaar 4. Constipation: Had BM after Metformin resumed 5. Sciatica: Add Flexeril. May need gabapentin
[2017-09-07] MEDS: Cyclobenzaprine TAB* 10 MG PO PRN (21:37)
[2017-09-08] MEDS: Cyclobenzaprine TAB* 10 MG PO PRN ×3 (03:39→20:54)
[2017-09-08] MEDS: Heparin VIAL(*) 5000 UNITS/ML VIAL (FIVE THOUSAND) SUBCUT SCH ×3 (06:31→20:55)
[2017-09-08] MEDS: PTO: Sitagliptin (NF) 50 MG TAB PO SCH (07:32)
[2017-09-08] MEDS: Hydrochlorothiazide TAB* 25 MG PO SCH (07:33)
[2017-09-08] MEDS: Aspirin EC TAB* 325 MG PO SCH (07:34)
[2017-09-08] MEDS: glipiZIDE TAB* 5 MG PO SCH ×2 (07:34→17:14)
[2017-09-08] MEDS: Docusate CAP* 100 MG PO SCH ×2 (07:34→20:54)
[2017-09-08] MEDS: metFORMIN* 500 MG TAB PO SCH (07:34)
[2017-09-08] MEDS: Losartan TAB* 25 MG PO SCH (07:34)
[2017-09-08] MEDS: Insulin LISPRO* 1 UNITS UNIT SUBCUT SCH ×4 (07:35→20:55)
[2017-09-08] MEDS: Acetaminophen TAB* 325 MG PO PRN ×2 (09:47→17:13)
[2017-09-08] MEDS ORDERED: Pregabalin CAP(*) 50 MG PO ONE (14:20)
--- NOTE | 2017-09-08 17:04 | PN ---
Progress Note Date of Service: 09/08/17 Note: ARTURO SIMENTAL was visited. Therapy notes read and reviewed. She believes the sciatica is worse and doesn't think that Flexeril helped. She is supposed to go home in the morning. Current Medications: Active Medications Generic Name Dose Route Start Last Admin Trade Name Freq PRN Reason Stop Dose Admin Acetaminophen 650 mg 09/05/17 15:35 09/08/17 09:47 Tylenol Tab* PO 650 mg Q6H PRN Administration FEVER/PAIN Aspirin 325 mg 09/06/17 09:00 09/08/17 07:34 Ecotrin Ec Tab* PO 325 mg DAILY RAKEL Administration Atorvastatin Calcium 40 mg 09/06/17 17:00 09/07/17 17:09 Lipitor* PO 40 mg 1700 RAKEL Administration Cyclobenzaprine HCl 10 mg 09/07/17 17:32 09/08/17 11:16 Flexeril Tab* PO 10 mg TID PRN Administration SPASMS Dextrose 12.5 gm 09/05/17 15:43 D50w Syringe 50 Ml* IV PUSH .FOR FS < 60 - SS PRN FS < 60 Docusate Sodium 100 mg 09/05/17 21:00 09/08/17 07:34 Colace Cap* PO 100 mg BID RAKEL Administration Glipizide 5 mg 09/07/17 12:43 09/08/17 07:34 Glucotrol Tab* PO 5 mg 0800,1700 RAKEL Administration Heparin Sodium (Porcine) 5,000 units 09/05/17 22:00 09/08/17 14:15 Heparin Vial(*) SUBCUT 5,000 units Q8HR RAKEL Administration Hydrochlorothiazide 12.5 mg 09/07/17 09:00 09/08/17 07:33 Hydrodiuril Tab* PO 12.5 mg DAILY RAKEL Administration Insulin Human Lispro 0 - 15 units 09/05/17 16:30 09/08/17 11:57 Humalog* SUBCUT Not Given ACHS [facility] Protocol Losartan Potassium 100 mg 09/06/17 09:00 09/08/17 07:34 Cozaar Tab* PO 100 mg DAILY RAKEL Administration Magnesium Hydroxide 30 ml 09/05/17 15:35 Milk Of Magnesia Liq* PO Q6H PRN CONSTIPATION Metformin HCl 1,000 mg 09/08/17 17:00 Glucophage* PO 0800,1700 RAKEL Pregabalin 75 mg 09/08/17 21:00 Lyrica Cap(*) PO BID RAKEL Senna 2 tab 09/05/17 15:35 Senokot Tab* PO BEDTIME PRN CONSTIPATION Sitagliptin Phosphate 50 mg 09/07/17 09:00 09/08/17 07:32 Januvia (Nf) PO 50 mg DAILY RAKEL Administration Vital Signs: Vital Signs Temp Pulse Resp BP Pulse Ox 98.2 F 94 24 118/72 93 09/08/17 16:06 09/08/17 16:06 09/08/17 16:06 09/08/17 16:06 09/08/17 16:06 Lab Results: Laboratory Results - last 24 hr 09/07/17 09/07/17 09/08/17 17:00 20:47 07:16 POC Glucose (mg/dL) 154 H 95 181 H 09/08/17 09/08/17 11:56 16:10 POC Glucose (mg/dL) 95 121 H Exam: LUNGS: Clear bilaterally HEART: reg rhythm ABDOMEN: Soft + BS NEUROLOGIC: A & O; slight weakness in right leg Assessment/Plan: 09/08/17 17:04 1. CVA with right sided weakness: PT/OT. ASA/Lipitor 2. Diabetes Mellitus: Metformin/Glipizide/Januvia. Increase Glucophage to 1000 mg 3. Hypertension: HCTZ/Cozaar 4. Constipation: Had BM after Metformin resumed 5. Sciatica: Tried Lyrica, with good relief. Will continue and send home on 6. DVT Prophylaxis: Heparin S/Q
[2017-09-08] MEDS: Atorvastatin* 40 MG TAB PO SCH (17:14)
[2017-09-08] MEDS: metFORMIN* 1,000 MG TAB PO SCH (17:14)
[2017-09-08] MEDS: Pregabalin CAP(*) 25 MG PO SCH (20:54)
[2017-09-09] MEDS: Heparin VIAL(*) 5000 UNITS/ML VIAL (FIVE THOUSAND) SUBCUT SCH ×2 (05:15→13:50)
[2017-09-09 06:27] VITALS: BP 123/79
[2017-09-09] MEDS: Cyclobenzaprine TAB* 10 MG PO PRN ×2 (07:34→15:25)
[2017-09-09] MEDS: Acetaminophen TAB* 325 MG PO PRN ×2 (07:36→13:48)
[2017-09-09] MEDS: metFORMIN* 1,000 MG TAB PO SCH (08:06)
[2017-09-09] MEDS: glipiZIDE TAB* 5 MG PO SCH (08:06)
[2017-09-09] MEDS: Losartan TAB* 25 MG PO SCH (08:06)
[2017-09-09] MEDS: Docusate CAP* 100 MG PO SCH (08:06)
[2017-09-09] MEDS: Hydrochlorothiazide TAB* 25 MG PO SCH (08:07)
[2017-09-09] MEDS: Aspirin EC TAB* 325 MG PO SCH (08:07)
[2017-09-09] MEDS: Pregabalin CAP(*) 25 MG PO SCH (08:07)
[2017-09-09] MEDS: PTO: Sitagliptin (NF) 50 MG TAB PO SCH (08:09)
[2017-09-09] MEDS: Insulin LISPRO* 1 UNITS UNIT SUBCUT SCH ×2 (08:09→12:05)
--- NOTE | 2017-09-11 13:07 | DS ---
CC: Dr. Eli Bruno * DISCHARGE SUMMARY: DATE OF ADMISSION: 09/05/17 DATE OF DISCHARGE: 09/09/17 DISCHARGE DIAGNOSES: 1. Cerebrovascular accident with right-sided weakness. 2. Diabetes mellitus. 3. Right-sided sciatica. 4. Hypertension. HISTORY OF ILLNESS AND HOSPITAL COURSE: For complete history of events leading up to her rehab stay, please see the history and physical dictated by me on . While in the rehab unit, the patient's blood sugars were in fairly good control. Her oral diabetes medicines were slowly added back in including Glucophage, Januvia and glipizide. The patient was maintained on heparin for DVT prophylaxis. She was on an aspirin for secondary stroke prevention. The patient was seen by Physical and Occupational Therapy and made good gains with both disciplines. With physical therapy at the time of admission, the patient required min assist for transfers, she was able to ambulate 120 feet with contact guard with Occupational Therapy. She was min assist for lower body dressing, min assist for bathing. Supervision for toileting and contact guard for toilet transfers. By the time of discharge, she was independent in her activities of daily living. Also of note, the patient developed right-sided sciatica after she attempted to do stairs. Her symptoms of back pain radiating down her right leg were greatly relieved by Lyrica. She was discharged home on this. The patient was discharged home on 09/09/17. DISCHARGE DIET: Consistent carbohydrate. DISCHARGE MEDICATIONS: 1. Aspirin 325 mg orally every day. 2. Lipitor 40 mg orally daily. 3. Hydrochlorothiazide 12.5 mg orally daily. 4. Cozaar 100 mg orally daily. 5. Metformin 1000 mg orally twice day. 6. Lyrica 75 mg orally twice a day. 7. Januvia 50 mg daily. SERVICES AFTER DISCHARGE: Through visiting nurse service, she will have home nursing and home physical therapy, followup with her primary care doctor, Dr. Eli Bruno, as well as with her neurologist, Dr. Kirill Alvarado. [id number]/[facility] #: [id number] MTDStanton
== END 2017-09-09 15:50 | disposition home health service (06) | DRG 57 ==
LOC: PMRU 14:18
PROVIDERS: ADMIT Physical Medicine & Rehabilitation; ATTEND Physical Medicine & Rehabilitation
PROC: F07Z5ZZ Bed Mobility Treatment (ICD-10-PCS; principal; 2017-09-05)
PROC: F07Z9ZZ Gait Training/Functional Ambulation Treatment (ICD-10-PCS; 2017-09-05)
PROC: F07Z8ZZ Transfer Training Treatment (ICD-10-PCS; 2017-09-05)
PROC: F08Z0ZZ Bathing/Showering Techniques Treatment (ICD-10-PCS; 2017-09-05)
PROC: F08Z1ZZ Dressing Techniques Treatment (ICD-10-PCS; 2017-09-05)
PROC: F08Z3ZZ Feeding/Eating Treatment (ICD-10-PCS; 2017-09-05)
DX: I69.351 Hemiplegia and hemiparesis following cerebral infarction affecting right dominant side (principal); E11.9 Type 2 diabetes mellitus without complications; I10 Essential (primary) hypertension; M54.31 Sciatica, right side; K59.00 Constipation, unspecified; Z79.84 Long term (current) use of oral hypoglycemic drugs; Z79.4 Long term (current) use of insulin; Z79.899 Other long term (current) drug therapy; Z91.010 Allergy to peanuts
CPT/HCPCS: 36415; 80053; 85025; A9270-GY; J1644

== ENCOUNTER 2018-01-16 20:09 | Emergency (ER) | payer OTHER ==
[2018-01-16 20:38] VITALS: BP 158/87
[2018-01-16] MEDS ORDERED: Naproxen TAB* 250 MG PO ONE (21:02)
--- NOTE | 2018-01-16 21:06 | UC ---
Shoulder Pain HPI - HPI Summary HPI Summary: 52 y/o female presents to the urgent care c/o - History of Current Complaint Chief Complaint: UCUpperExtremity Stated Complaint: SHOULDER PAIN Time Seen by Provider: 01/16/18 20:52 Pain Intensity: 10 - Allergies/Home Medications Allergies/Adverse Reactions: Allergies Allergy/AdvReac Type Severity Reaction Status Date / Time No Known Allergies Allergy Verified 01/16/18 20:39 Home Medications: Home Medications Acetaminophen TAB* [Tylenol TAB*] 650 mg PO ONCE PRN 01/16/18 [History Confirmed 01/16/18] Insulin GLARGINE(*) [Lantus(*)] 12 units SUBCUT DAILY 01/16/18 [History Confirmed 01/16/18] PMH/Surg Hx/FS Hx/Imm Hx - Surgical History Surgical History: Yes Surgery Procedure, Year, and Place: HYSTERECTOMY, - Family History Known Family History: Positive: Hypertension, Diabetes - Social History Alcohol Use: Occasionally Alcohol Amount: 1 glass 1 month Substance Use Type: None Smoking Status (MU): Never Smoked Tobacco - Immunization History Most Recent Influenza Vaccination: fall Most Recent Tetanus Shot: 2012 Most Recent Pneumonia Vaccination: Pt states she thinks she had winter 2013 Physical Exam - Summary Physical Exam Summary: Vital Signs Reviewed: Yes General: well developed, well nourished female sitting in the examining table w/ o any apparent distress, Eyes: Positive: Conjunctiva Clear - PERRLA, EOMI, fundi grossly normal ENT: Positive: Normal ENT inspection, Hearing grossly normal, Pharynx normal, TMs normal Neck: Positive: Supple, Nontender, No Lymphadenopathy Respiratory: Positive: Chest non-tender, Lungs clear, Normal breath sounds, No respiratory distress Cardiovascular: Positive: RRR, No Murmur, Pulses Normal, Brisk Capillary Refill Abdomen Description: Positive: Nontender, No Organomegaly, Soft. Negative: CVA Tenderness (R), CVA Tenderness (L) Bowel Sounds: Positive: Present Musculoskeletal: Positive: Strength Intact, Other: - RT shoulder: The Rt shoulder is without obvious asymmetry or deformity when compared to the LF shoulder. No surface trauma, ecchymosis, crepitus. No bony deformity or prominence of humeral head. No erythema, warmth. tender to palpation over the clavicle,scapula. and over Acromioclavicular joint and humeral head with mild swelling, NT to palpation of the bicipital groove . NT to palpation of the muscles of the sternocleidomastoid, pectoralis, tenderness over biceps/triceps, deltoid, trapezius, . Limited ROM due to pain. "empty can and drop arm test unable to perform due to pain. No axillary tenderness or lymphadenopathy. Normal sensation over the deltoid and fingers. Distal motor and neurovascular status is intact. Neurological Exam: Normal Psychological Exam: Normal Skin Exam: Normal Triage Information Reviewed: Yes Vital Signs: Initial Vital Signs Temp 98.1 F 01/16/18 20:34 Pulse 77 01/16/18 20:34 Resp 16 01/16/18 20:34 BP 158/87 01/16/18 20:34 Pulse Ox 98 01/16/18 20:34 Discharge - Discharge Plan Condition: Stable Disposition: HOME Referrals: Eli Bruno MD [Primary Care Provider] - - Billing Disposition and Condition Condition: STABLE Disposition: Home
--- NOTE | 2018-01-16 21:32 | RAD ---
INDICATION: Right shoulder injury. TECHNIQUE: 4 views of the right shoulder were obtained. FINDINGS: The bones are in normal alignment. No fracture is seen. There is mild to moderate osteoarthritic change in the glenohumeral joint. IMPRESSION: MILD TO MODERATE OSTEOARTHRITIC CHANGE.
== END 2018-01-16 22:35 | disposition home or self-care (01) ==
LOC: UCEAST 20:09
DX: M25.511 Pain in right shoulder (principal); M19.011 Primary osteoarthritis, right shoulder; Z82.49 Family history of ischemic heart disease and other diseases of the circulatory system; Z83.3 Family history of diabetes mellitus
CPT/HCPCS: 99212; A9270-GY; G0463

== ENCOUNTER 2018-07-24 12:56 | Emergency (ER) | payer OTHER ==
[2018-07-24] MEDS ORDERED: Albuterol/Ipratropium NEB.SOL* Albuterol 2.5 MG/Ipratropium 0.5 MG 3 ML INH ONE ×2 (12:58→13:22)
[2018-07-24] MEDS ORDERED: Albuterol/Ipratropium NEB.SOL* Albuterol 2.5 MG/Ipratropium 0.5 MG 3 ML ONE (12:59)
--- NOTE | 2018-07-24 13:08 | UC ---
Respiratory Complaint HPI - HPI Summary HPI Summary: Patient is a 53-year-old female with a history of asthma, CVA, hypertension, diabetes. Patient states she's had a head cold for the last couple days. Patient states all of her colleagues at work are sick. She states today at work she started to feel like her asthma is kicking up and she was wheezy. Patient left work of her lunch break to try to go home and get her inhaler. Patient states her coughing and breathing got bad so she came here. Pt states feels "like my asthma."coughing, on productive. mild sinus congestion, PND Pt does not recall last prednisone. pt's medications reviewed this visit - History of Current Complaint Stated Complaint: SOB ASTHMA Time Seen by Provider: 07/24/18 12:58 Hx Obtained From: Patient Onset/Duration: Gradual Onset Severity Initially: Mild Severity Currently: Mild Pain Scale Used: 0-10 Numeric - Allergies/Home Medications Allergies/Adverse Reactions: Allergies Allergy/AdvReac Type Severity Reaction Status Date / Time No Known Allergies Allergy Verified 07/24/18 13:13 Home Medications: Home Medications Liraglutide [Victoza 3-Piyush] 1.8 unit SUBCUT DAILY 07/24/18 [History Confirmed ] PMH/Surg Hx/FS Hx/Imm Hx Endocrine History: Diabetes Cardiovascular History: Hypertension Respiratory History: Asthma Psychological History: Other - CVA - Surgical History Surgical History: Yes Surgery Procedure, Year, and Place: HYSTERECTOMY, - Family History Known Family History: Positive: Hypertension, Diabetes - Social History Occupation: Employed Full-time Lives: With Family Alcohol Use: Occasionally Alcohol Amount: 1 glass 1 month Substance Use Type: None Smoking Status (MU): Never Smoked Tobacco - Immunization History Most Recent Influenza Vaccination: fall Most Recent Tetanus Shot: 2012 Most Recent Pneumonia Vaccination: Pt states she thinks she had winter 2013 Review of Systems All Other Systems Reviewed And Are Negative: Yes Constitutional: Positive: Fatigue ENT: Positive: Sinus Congestion Respiratory: Positive: Shortness Of Breath, Cough - non productive Physical Exam - Summary Physical Exam Summary: Vital Signs Reviewed: Yes A+Ox3, coarse, persistent cough Eyes: Conjunctiva Clear, MAKENZIE. EOM intact and full ENT: Hearing grossly normal cerumen left ear - TM not visible, turbinates inflammed and boggy, PND, mmoist, uvula midline, no exudate, no erythema Neck: Positive: Supple Respiratory: Positive: course, persistent cough, scattered wheeze insp/expir no rhonci Cardiovascular: RRR nl s1, s2 no m/r CBT <2 sec abd soft + BS nt/nd no guarding, no distension Musculoskeletal Exam: SOUZA x 4 without difficulty Strength Intact, ROM Intact Neurological: Positive: Alert, + sensation throughout Psychological: Positive: Normal Response To Family Skin: Positive: no rash, no ecchymosis Triage Information Reviewed: Yes Re-Evaluation - Re-Evaluation First Eval Re-Evaluation Time: 13:22 Change: Improved Comment: Pt markedly improved following first nebulizer - speaking easier sentences, less wheeze, less cough. Will give second duoneb. Will hold on pred - pt with DM - states sugars have been high. reassess Second Eval Re-Evaluation Time: 14:14 Change: Improved Comment: markedly improved. attempted manual cerumen disimpaction - pt resisted - declined irrigation. pt given Rx debrox. f/u with PCP. mdi with spacer. return precaution. Pt comfortable and in agreement withplan Respiratory Course/Dx - Course Course Of Treatment: Patient presents to urgent care with several days of progressive URI. Patient today developed a cough, wheeze patient states she was driving home to get her inhaler but decided to come here. Patient with a fever on Tuesday but none since. Patient with multiple sick contacts. Patient states her sinuses are congested with postnasal drip. No [id number] meds taken. Patient does have diabetes, history of stroke, history of hypertension. Patient's blood pressures hike today but she is in distress and has a history of asthma. Unknown last prednisone - pt states DM with elevated BGs. Will give duoneb with close reassessment - Differential Dx/Diagnosis Provider Diagnosis: Asthma exacerbation, URI (upper respiratory infection) Discharge - Sign-Out/Discharge Documenting (check all that apply): Patient Departure All imaging exams completed and their final reports reviewed: No Studies - Discharge Plan Condition: Stable Disposition: HOME Prescriptions: Albuterol HFA INHALER* [Ventolin HFA Inhaler*] 2 puff INH Q4H PRN #1 mdi PRN Reason: wheeze Carbamide Peroxide 6.5% OTIC* [DEBROX 6.5% Otic*] 2 drop .SEE ORDER DAILY #1 btl DOXYcycline CAP(*) [DOXYcycline 100MG CAP(*)] 100 mg PO BID #20 cap Fluconazole [Diflucan 150 MG (NF)] 150 mg PO ONCE PRN #1 tab PRN Reason: vaginal yeast infection Inhaler, Assist Devices [Aerochamber Mv] 1 each PO Q4HR #1 spacer Patient Education Materials: Asthma (ED), Upper Respiratory Infection (ED) Forms: *Gen. Provider Communication Referrals: Eli Bruno MD [Primary Care Provider] - Additional Instructions: - -Take antibiotics exactly as prescribed until gone - Use your albuterol puffer - 2 puffs ever 4 hours for the next 2 days - then as needed - Stay well hydrated - avoid excess caffeine and all alcohol - eat regular, healthy meals - humidify the air in the room where you sleep - boil water, run a hot steam shower, vaporizer, cups of water by heat register - okay to take over the counter decongestant and cough medication - These infections are spread by secretions - do NOT share eating or drinking utensils - clean items you share with other people such as cell phones, computer mouse, TV remote, computer tablets,etc.. Once you have been antibiotics for 2 days, change your toothbrush and your pillowcase. - For your ear - okay to use wax softening drops as prescribed -Contact your doctor to arrange a follow-up appointment this week. Call your doctor, return here or go to the emergency department with any questions or concerns - increased shortness of breath, wheeze, fever or any other concerns - Billing Disposition and Condition Condition: STABLE Disposition: Home
[2018-07-24 13:13] VITALS: BP 118/100
--- OUTSIDE RECORDS SUMMARY | 2018-07-24 13:23 | XMS REPORT | Continuity of Care Document ---
:1965 External Reference #:[id number] Author Name Chanell Slaughter Care Team Providers Name Role Phone Eli Bruno MD Primary Care Physician Unavailable Payers Type Date Identification Numbers Payment Provider Subscriber Policy Number: [id number] [employer] Myriam Deluna Group Number: [id number] [address] Group Name: [place] [address] PayID: [id number] Advance Directives Description No Information Available Problems Date Description Provider Status Onset: 09/23/2017 Cerebral artery occlusion Marina Young M.D. Active Onset: 09/23/2017 Syncope and collapse Marina Young M.D. Active Onset: 09/30/2017 Hyperlipidemia Kirill Alvarado MD Active Onset: 09/30/2017 Type 2 diabetes mellitus Kirill Alvarado MD Active Onset: 11/25/2017 Migraine without aura, not refractory Kirill Alvarado MD Active Family History Date Family Member(s) Problem(s) Comments General Colon Cancer Father due to Sudden () - in sleep age 40 yo, 2 AM awoke tired, then found in bed 6 AM. Father from heart failure per Pt statement 10/27/17. Only child. 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 [employer] Tobacco Use Start: Unknown Never Smoked Cigarettes Smoking Status Reviewed: 06/28/18 Never Smoked Cigarettes ETOH Use Denies alcohol use Tobacco Use Start: Unknown Patient has never smoked Recreational Drug Use Denies Drug Use Exercise Type/Frequency Exercises regularly Allergies, Adverse Reactions, Alerts Description No Known Drug Allergies Medications Medication Date Status Form Strength Qnty SIG Indications Ordering Provider Victoza 05/17 Active Solution 18mg/3ML 6ml 1.8mg E11.9 Pen-Injec daily MD Memo t Caretouch Pen Charlotte 05/17 Active Misc 31G X 6 100un use 1 E11.9 Pierce 31 G X 6 mm /2018 mm its pen MD Memo needle twice daily Atorvastatin Calcium 05/17 Active Tablets 20mg 90tab take s 20mg MD Memo daily Losartan Potassium 09/05 Active Tablets 100mg 90tab 1 by Marina s mouth Nelson, every M.D. day Aspirin Active Tablets 325mg 14tab take 1 Unknown /0000 s by mouth once a day Proair HFA Active Aerosol 108(90Bas 2 puffs Unknown /0000 e) by mouth mcg/Act every 4 hours as needed Metformin HCL ER Active Tablets 1000mg take one Unknown (Osm) /0000 ER 24HR tablet by mouth twice a day Lantus Active Solution 100Unit/M 12 units Unknown /0000 L once daily Hydrochlorothiazide Active Tablets 25mg 1 by Unknown /0000 mouth every day Atorvastatin Calcium 05/17 Hx Tablets 40mg 90tab 40mg by Pierce jeanette Hampton MD - daily 05/17 Hydrochlorothiazide 09/23 Hx Tablets 12.5mg 1 by Marina mouth Nelson, - every M.D. Atorvastatin Calcium 09/05 Hx Tablets 40mg 30tab 1 by Marina s mouth Nelson, - every M.D. Hydrochlorothiazide 09/05 Hx Tablets 25mg 1 by Marina mouth Hannah, - every M.D. Glipizide XL Hx Tablets 10mg 1 by Unknown /0000 ER 24HR mouth - twice a Januvia Hx Tablets 100mg 1 by Unknown /0000 mouth - every Atorvastatin Calcium Hx Tablets 20mg take 1 Unknown /0000 tablet - at 05/17 bedtime Immunizations Description No Information Available Vital Signs Date Vital Result Comment 06/28/2018 10:22am Height 65.5 inches 5'5.50" Weight 208.00 lb Heart Rate 76 /min BP Systolic Sitting 120 mmHg BP Diastolic Sitting 80 mmHg BMI (Body Mass Index) 34.1 kg/m2 05/17/2018 7:37am Height 65.5 inches 5'5.50" Weight 213.00 lb w/o shoes Heart Rate 75 /min BP Systolic Sitting 133 mmHg BP Diastolic Sitting 74 mmHg BMI (Body Mass Index) 34.9 kg/m2 05/12/2018 8:13am Height 65.5 inches 5'5.50" Weight 213.00 lb Heart Rate 74 /min BP Systolic Sitting 116 mmHg Lue lg cuff BP Diastolic Sitting 74 mmHg Lue lg cuff BP Systolic Standing 110 mmHg BP Diastolic Standing 70 mmHg Respiratory Rate 16 /min BMI (Body Mass Index) 34.9 kg/m2 Ejection Fraction 55-60% as of 10/2017 echo 01/24/2018 7:57am Height 65.5 inches 5'5.50" Weight 215.00 lb Heart Rate 80 /min BP Systolic Sitting 122 mmHg lue lg cuff BP Diastolic Sitting 72 mmHg lue lg cuff BP Systolic Standing 118 mmHg BP Diastolic Standing 70 mmHg Respiratory Rate 16 /min BMI (Body Mass Index) 35.2 kg/m2 Ejection Fraction 60-65% 09/02/2017 echo 12/06/2017 8:13am Height 65.5 inches 5'5.50" Weight 214.00 lb No shoes Heart Rate 76 /min BP Systolic Sitting 140 mmHg Rue lrg cuff BP Diastolic Sitting 86 mmHg Rue lrg cuff BP Systolic Standing 134 mmHg Rue lrg cuff BP Diastolic Standing 82 mmHg Rue lrg cuff Respiratory Rate 15 /min BMI (Body Mass Index) 35.1 kg/m2 Ejection Fraction 60-65% 09/02/2017-echo 11/25/2017 10:43am Height 65.5 inches 5'5.50" Weight 211.12 lb Heart Rate 70 /min BP Systolic 128 mmHg BP Diastolic 88 mmHg BMI (Body Mass Index) 34.6 kg/m2 09/30/2017 10:46am Height 65.5 inches 5'5.50" Weight 212.38 lb Heart Rate 70 /min BP Systolic 136 mmHg BP Diastolic 80 mmHg BMI (Body Mass Index) 34.8 kg/m2 09/23/2017 9:04am Height 65.5 inches 5'5.50" Weight 213.00 lb w/ shoes Heart Rate 84 /min BP Systolic Sitting 118 mmHg lue large cuff BP Diastolic Sitting 72 mmHg lue large cuff Respiratory Rate 18 /min BMI (Body Mass Index) 34.9 kg/m2 Ejection Fraction 60-65% echo 09/02/17 Results Test Date Facility Test Result H/L Range Note Laboratory test finding 05/17/2018 [facility] [employer] [facility] Glucose Random 462 Ketones 0.2 Hemoglobin A1c 12.1 High 5-7 Procedures Date Code Description Status 05/05/2018 92813 Implantable Cardio System Loop Recorder Sys Remota Data Completed [facility] 05/05/2018 69659 Interrogation Dev Loop Recorder Incl Physician Completed Analysis,Rev,Repor 04/04/2018 93800 Implantable Cardio System Loop Recorder Sys Remota Data Completed [facility] 04/04/2018 68311 Interrogation Dev Loop Recorder Incl Physician Completed Analysis,Rev,Repor 03/04/2018 68990 Implantable Cardio System Loop Recorder Sys Remota Data Completed [facility] 03/04/2018 35947 Interrogation Dev Loop Recorder Incl Physician Completed Analysis,Rev,Repor 02/01/2018 70693 Implantable Cardio System Loop Recorder Sys Remota Data Completed [facility] 02/01/2018 04134 Interrogation Dev Loop Recorder Incl Physician Completed Analysis,Rev,Repor 01/18/2018 32283 Stress ECHO Interpretation/Report Hospital Completed 01/18/2018 55725 Treadmill Interp/Report Only Completed 01/18/2018 65141 Stress Test Supervsn W/Out I/R Completed 01/01/2018 16895 Interrogation Dev Loop Recorder Incl Physician Completed Analysis,Rev,Repor 01/01/2018 48805 Implantable Cardio System Loop Recorder Sys Remota Data Completed [facility] 12/20/2017 78619 Stress Test Completed 11/30/2017 17318 Implant Cardiac Loop Recorder Completed 10/20/2017 73332 Moderate Sedation Services; Same Phys Intl 15 Mins; PT >=5 Completed Years 10/20/2017 78299 Color Flow Doppler/Interp & Reprt Completed 10/20/2017 28005 Pulse Wave/Continuous-Interp.RPT Completed 10/20/2017 96424 Echocardiography, Transesophageal, Real Time W/Image 2D Completed W/W/O M-M 09/23/2017 35651 EKG Tracing & Interpretation Completed 09/02/2017 95934 ECHO Transthorasic Realtime 2D W Doppler & Color Flow Hosp Completed 09/01/2017 11890 EEG Recording Awake & Asleep Completed Encounters Type Date Location Provider Dx Diagnosis Office Visit 05/17/2018 [place] [facility] Stan Hampton MD E11.9 Type 2 diabetes 8:00a [facility] of [employer] mellitus without complications E78.5 Hyperlipidemia, unspecified I10 Essential (primary) hypertension Office Visit 05/12/2018 8:20a [facility] Marina Young, R55 Syncope and Of [employer] [facility] [facility] M.[place]. 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 unspecified [employer] I95.1 Orthostatic hypotension R05 Cough Office Visit 12/06/2017 8:30a [facility] Ann Marie Galeana, R55 Syncope and Of [facility] collapse E78.5 Hyperlipidemia, unspecified R07.9 Chest pain, unspecified I63.9 Cerebral infarction, unspecified Office Visit 11/25/2017 [facility] Kirill Forman Cerebral 10:30a Clinic MD [place] infarction, unspecified E78.5 Hyperlipidemia, unspecified G43.009 Migraine w/o aura, not intractable, w/o status migrainosus Z86.73 Prsnl hx of TIA (TIA), and cereb infrc w/o resid deficits Office Visit 09/30/2017 Neuro[facility]ist Kirill Rosario.Carlos Eduardo Cerebral 11:00a Clinic MD [place] infarction, unspecified E78.5 Hyperlipidemia, unspecified E11.9 Type 2 diabetes mellitus without complications M62.81 Muscle weakness (generalized) Office Visit 09/23/2017 8:40a [facility] Abraham Mckinney.Carlos Eduardo Cerebral Of [employer] [facility] M.D. infarction, unspecified R55 Syncope and collapse R07.9 Chest pain, unspecified R61 Generalized hyperhidrosis E11.8 Type 2 diabetes mellitus with unspecified complications Office Visit 09/05/2017 12:37p [facility] Albino Carter I63.9 Cerebral Assoc,pc infarction, Hospitalists unspecified R55 Syncope and collapse E11.8 Type 2 diabetes mellitus with unspecified complications I10 Essential (primary) hypertension Office Visit 09/04/2017 12:34p [facility] Albino Carter MD R55 Syncope and Assoc,pc Hospitalists collapse E78.5 Hyperlipidemia, unspecified E11.8 Type 2 diabetes mellitus with unspecified complications I10 Essential (primary) hypertension Office Visit 09/03/2017 12:33p [facility] Albino Carter MD R55 Syncope and Assoc,pc Hospitalists collapse E78.5 Hyperlipidemia, unspecified E11.8 Type 2 diabetes mellitus with unspecified complications I10 Essential (primary) hypertension Office Visit 09/02/2017 4:09p [facility] Kirill Alvarado R55 Syncope and MD collapse M62.81 Muscle weakness (generalized) Office Visit 09/01/2017 4:08p [facility] Clinic Kirill Alvarado R55 Syncope and MD collapse M62.81 Muscle weakness (generalized) Office Visit 09/01/2017 12:32p [facility] [place], R55 Syncope and Assoc,pc N.P. collapse Hospitalists E78.5 Hyperlipidemia, unspecified E11.8 Type 2 diabetes mellitus with unspecified complications I10 Essential (primary) hypertension Office Visit 08/31/2015 11:07a [facility] Frances R10.13 Epigastric pain Assoc,pc Maribeth Flores Hospitalists E11.9 Type 2 diabetes mellitus without complications I10 Essential (primary) hypertension Office Visit 08/30/2015 11:06a [facility] Madi R10.13 Epigastric pain Assoc,mallory Dumont M.D. Hospitalists E11.9 Type 2 diabetes mellitus without complications I10 Essential (primary) hypertension Office Visit 08/29/2015 11:05a [facility] Gladis R10.13 Epigastric pain Assoc,pc Mecca Sheets Hospitalists E11.9 Type 2 diabetes mellitus without complications I10 Essential (primary) hypertension Office 08/28/2015 [facility] Hemanth Hyde K92.2 Gastrointestinal Visit 11:05a Assoc,pc [place]cca ABARCA hemorrhage, Hospitalists unspecified E11.9 Type 2 diabetes mellitus without complications E78.0 Pure hypercholesterolemia I10 Essential (primary) hypertension Plan of Treatment 06/28/2018 - Kirill Alvarado MDI63.9 Cerebral infarction, ibzshhljgupE41.009 Migraine without aura, not intractable, without status migraComments:No further stroke.Migraines relatively frequent but she does not want to try daily migraine medication. If your blood pressure medication needs to be changed please think about verapamil which can also help migraines. Recommended that she take 250mg twice a day over the counter may help with migraines. I will be glad to see as needed.Follow up:Follow up as needed.
== END 2018-07-24 14:28 | disposition home or self-care (01) ==
LOC: UCEAST 12:56
DX: J45.901 Unspecified asthma with (acute) exacerbation (principal); J06.9 Acute upper respiratory infection, unspecified
CPT/HCPCS: 99213; A9270-GY; G0463

== ENCOUNTER 2018-10-19 05:01 | Inpatient (IN) | payer OTHER ==
[2018-10-19] MEDS ORDERED: NS 0.9% 1000 ML** 1,000 ML IV ONE (05:03)
--- NOTE | 2018-10-19 05:31 | ED ---
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 Jessica chowdary was called at 04:57 before EMS arrival. At bedside at 05:00 for evaluation and brain CT was taken at 05:03. Last known well was at 22:00 10/18/18. The patients son called an ambulance. The patient c/o a headache, nausea, tongue and neck pain. She denies any chest or abdomen pain. At triage her pain was rated as a 0/10 in severity. The patient reportedly had a CVA one year ago and reports that she sees Dr. Alvarado, neuro. She denies a Hx of migraines. Vital signs while in room HR: 93 bpm, O2 Sat: 96, BP: 166/94. I was able to reach the patient's son to get further history. He tells me that he was awoken from sleep by the family dog barking. When he went to find out what was making the dog bark, he found his mother sitting on a chair in the living room apparently convulsing. He says she was foaming at the mouth and was not responding to him. He called EMS and while waiting for them to arrive she stopped convulsing gradually but was unresponsive and only minimally responsive by the time she was wheeled out to the ambulance. On reviewing the patient's record, it sounds as though she had a very similar episode in August 2017. As she is now, she presented after what was thought to be a syncopal episode with confusion, altered sensorium, and right-sided weakness that was apparently discovered somewhat far into her hospital course. She underwent an extensive workup including EEG, CT of the head, CTA of the head and neck, an MRI. All of these studies were inconclusive or negative. She eventually transitioned from inpatient to rehabilitation where she continued to make good progress and regained much of her function. She tells me now that she was pretty much back to normal before the events of tonight. Her son says she seemed a little off yesterday, but otherwise was not sick. - History Of Current Complaint Chief Complaint: EDAltMentalStatus Stated Complaint: JESSICA CHOWDARY PER EMS Hx Obtained From: Patient, EMS Onset/Duration: Unknown, Suddenly Timing: Constant, Lasting Hours Severity Initially: Mild Severity Currently: Mild Character: Responsiveness Aggravating Factor(s): Nothing Alleviating Factor(s): Nothing Associated Signs And Symptoms: Positive: Nausea, Headache - Allergies/Home Medications Allergies/Adverse Reactions: Allergies Allergy/AdvReac Type Severity Reaction Status Date / Time peanut Allergy Unknown Verified 10/19/18 08:32 Reaction Details Home Medications: Home Medications Atorvastatin* [Lipitor 40 MG*] 20 mg PO 1700 10/19/18 [History Confirmed ] Inhaler, Assist Devices [Aerochamber Mv] 1 each PO Q4HR PRN 10/19/18 [History Confirmed 10/19/18] Semaglutide [Ozempic] 1 mg SQ WEEKLY 10/19/18 [History Confirmed 10/19/18] PMH/Surg Hx/FS Hx/Imm Hx Endocrine/Hematology History: Reports: Hx Diabetes - DM II Denies: Hx Thyroid Disease Cardiovascular History: Reports: Hx Angina, Hx Hypertension Denies: Hx Congestive Heart Failure, Hx Coronary Artery Disease, Hx Hypercholesterolemia, Hx Myocardial Infarction, Hx Pacemaker/ICD Respiratory History: Reports: Hx Asthma Denies: Hx Chronic Obstructive Pulmonary Disease (COPD) GI History: Denies: Hx Ulcer History: Denies: Hx Renal Disease Sensory History: Denies: Hx Contacts or Glasses, Hx Hearing Aid Opthamlomology History: Denies: Hx Contacts or Glasses Psychiatric History: Denies: Hx Panic Disorder - Surgical History Surgery Procedure, Year, and Place: HYSTERECTOMY, Infectious Disease History: No Infectious Disease History: Denies: Hx Clostridium Difficile, Hx Hepatitis, Hx Human Immunodeficiency Virus (HIV), Hx of Known/Suspected MRSA, Traveled Outside the [place] in Last 30 Days - Family History Known Family History: Positive: Hypertension, Diabetes - Social History Alcohol Use: Occasionally Alcohol Amount: 1 glass 1 month Substance Use Type: Reports: None Smoking Status (MU): Never Smoked Tobacco Review of Systems ENT: Other - positive: neck pain Positive: Nausea Neurological: Other - Positive: reported seizure like activity 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 The patient does not appear ill or toxic. She makes eye contact to voice and answers questions, but is very slow to answer questions and her voice is very soft. HEENT:Extraocular movements are intact. Initially she seemed to have a left hemineglect and would not gaze to the left, but on further prodding this resolved and she was able to gaze leftward. Conjunctiva are normal without pallor. Pharynx is clear without exudate or swelling. Dentition is unremarkable. There is no sign of head trauma. Neck: Supple, no adenopathy noted. Lungs: Lungs are clear to auscultation. There are no signs of respiratory distress. Coronary: Peripheral perfusion is good. Heart sounds are regular, a normal S1 and S2 were auscultated. There is no gallop rhythm, nor any pathological sounded murmurs. Abdomen: The abdomen appears normal and is nondistended. Normoactive bowel sounds are present. On palpation, there is no significant tenderness, nor any guarding or rebound. There is no hepatosplenomegaly, nor any masses. Genitourinary: Deferred Back: Good range of motion is observed. There are no surface abnormalities nor any scoliosis. Extremities: There is no sign of any trauma to the extremities. Neurologic: The patient is awake and alert. The patients affect is felt to be flat and she is very slow to answer questions. There were no obvious paraphasic errors or definite word finding difficulties. Strength seems slightly diminished on the right, though she seems to have diffusely diminished strength throughout and there is suspicion that this is effort related. DTRs at the elbow were felt to be normal, there was no significant clonus. No seizure like activity observed. There are no focal motor abnormalities. Cranial nerves are grossly intact. Deep tendon reflexes are 2+ and symmetric. The patient was unable to cooperate with finger to nose testing, on both sides she veered off to either side of my finger and had trouble finding her nose. Psychiatric. There is no sign of any hallucinations or delusions, or any other signs of psychosis Triage Information Reviewed: Yes Vital Signs On Initial Exam: Initial Vitals Temp Pulse Resp BP Pulse Ox 99.8 F 92 18 166/94 98 10/19/18 05:16 10/19/18 05:16 10/19/18 05:16 10/19/18 05:16 10/19/18 05:16 Vital Signs Reviewed: Yes - Gauri Coma Scale Best Eye Response: 4 - Spontaneous Best Motor Response: 6 - Obeys Commands Best Verbal Response: 5 - Oriented Coma Scale Total: 15 Diagnostics - Vital Signs Vital Signs Temp Pulse Resp BP Pulse Ox 10/19/18 05:16 99.8 F 92 18 166/94 98 - Laboratory Result Diagrams: 10/20/18 12:54 10/20/18 12:54 Lab Statement: Any lab studies that have been ordered have been reviewed, and results considered in the medical decision making process. - Radiology CXR Radiology Interpretation Completed By: ED Physician Summary of Radiographic Findings: No acute process. Pending official imaging report. - CT Brain CT Interpretation Completed By: Radiologist Summary of CT Findings: No acute intracranial abnormality. ED physician has reviewed this imaging report. - EKG 05:31 Cardiac Rate: NL - 90 bpm EKG Rhythm: Sinus Rhythm Summary of EKG Findings: EKG at 05:31 showed NSR at 90 BPM, P waves, QRS complex , and T waves are within normal limits, T waves and intervals are normal, no ischemic changes. This is a normal EKG. National Institutes Of Health - NIH Scale Level of Consciousness: Alert/Keenly Responsive Ask Patient the Month and His/Her Age: Both Correct Ask Pt to Open/Close Eyes and Motor Vehicle Operator Road Supervisor/Release Non-Paretic Hand: Both Correctly Best Gaze (Only Horizontal Eye Movement): Normal Visual Field Testing: No Visual Loss Facial Paresis-Pt to Smile & Close Eyes or Grimace Symmetry: Normal/Symmetrical Motor Function - Right Arm: Effort Against Crimora Motor Function - Left Arm: No Drift-Holds 10 Seconds Motor Function - Right Leg: Drifts LT 10 seconds Motor Function - Left Leg: No Drift-Holds 10 Seconds Limb Ataxia-Must be out of Proportion to Weakness Present: Present in Two Limbs Sensory (Use Pinprick to Test Arms/Legs/Trunk/Face): Normal Best Language (Describe Picture, Name Items): Some Loss Dysarthria (Read Several Words): Normal Extinction and Inattention: No Abnormality Total Score: 6 Altered Mental Statu Course/Dx - Course Course Of Treatment: This is a 53-year-old diabetic female who presents after an apparent seizure with weakness of the right side. However she also has an odd and nonfocal exam otherwise, with bilateral ataxia, very slow speech, and really diffuse weakness. I suspect this is not a stroke syndrome, but rather a postictal phenomena. I do not feel she requires treatment for acute stroke such as TPA or mechanical reperfusion therapy. She has improved somewhat from her initial presentation. I will be contacting the neurologist mortgage consultant shortly to discuss the case. CXR showed no acute process. Brain CT showed no acute intracranial abnormality. EKG at 05:31 showed NSR at 90 BPM, P waves, QRS complex, and T waves are within normal limits, T waves and intervals are normal , no ischemic changes. This is a normal EKG. Bloodwork and chemistries obtained and are WNL. In the ED course the patient was given sodium chloride IV. Discussed case with Dr. Villagomez who agreed that it sounded like a post ictal paresis and agreed with Keefra for a possible seizure. Discussed case with Dr. Flores, hospitalist, who will inform the next hospitalist about the patient. The patient will be signed out to Dr. Vegas pending admission. - Diagnoses Provider Diagnoses: Seizure - Provider Notifications Discussed Care Of Patient With: Marv Villagomez Time Discussed With Above Provider: 06:19 Instructed by Provider To: Other - Agreed that it sounded like a post ictal paresis and agreed with Keppra for a possible seizure. - Critical Care Time Critical Care Time: 30-74 min Discharge - Sign-Out/Discharge Documenting (check all that apply): Sign-Out Patient Signing out patient TO: Ricco Vegas - pending admission Patient Received Moderate/Deep Sedation with Procedure: No - Discharge Plan Condition: Stable Disposition: ADMITTED TO [facility] - Billing Disposition and Condition Condition: STABLE Disposition: Admitted to [facility] - Attestation Statements Document Initiated by Ty: Yes Documenting Scribe: Mir Lara Provider For Whom Ty is Documenting (Include Credential): Ricco Arambula MD Scribpaige Attestation: IMir, scribed for Ricco Arambula MD on 10/20/18 at 1508. Scribe Documentation Reviewed: Yes Provider Attestation: The documentation as recorded by the Mir lambert accurately reflects the service I personally performed and the decisions made by me, Ricco Arambula MD Status of Scribpaige Document: Viewed Consult Consult: At 06:25 - Discussed case with Dr. Flores, hospitalist, who will inform the next hospitalist about the patient for admission.
[2018-10-19 05:32] LABS: ABS Basophils 0.1 10^3/ul (0-0.2); ABS Eosinophils 0 10^3/ul (0-0.6); ABS Lymphocytes 3.1 10^3/ul (1.0-4.8); ABS Monocytes 0.7 10^3/ul (0-0.8); ABS Neutrophils 9.7 10^3/ul (1.5-7.7); ABS Nucleated RBC 0 10^3/ul; Eosinophil % 0.3 %; Hematocrit 39 % (35-47); Lymphocyte % 22.9 %; Mean Corpuscular HGB Conc 33 g/dl (31-36); Mean Corpuscular Hemoglobin 29 pg (27-31); Mean Corpuscular Volume 86 fL (80-97); Nucleated Red Blood Cells % 0.1; Platelet Count 461 10^3/ul (150-450); Red Blood Count 4.52 10^6/ul (4.00-5.40); Red Cell Distribution Width 15 % (10.5-15); White Blood Count 13.6 10^3/ul (3.5-10.8)
[2018-10-19 05:39] LABS: Activated Partial Thrombo Time 33.6 seconds (26.0-36.3)
[2018-10-19 05:48] LABS: ALT 17 U/L (7-52); AST 9 U/L (13-39); Albumin 4.3 g/dL (3.2-5.2); Albumin/Globulin Ratio 1.4 (1-3); Alkaline Phosphatase 133 U/L (34-104); Anion Gap 13 mmol/L (2-11); BUN/Creatinine Ratio 21.1 (8-20); Blood Urea Nitrogen 15 mg/dL (6-24); CO2 Carbon Dioxide 25 mmol/L (22-32); Calcium 9.8 mg/dL (8.6-10.3); Chloride 100 mmol/L (101-111); Cholesterol 180 mg/dL; EGFR African American 103.8 (>60); EGFR Non-African American 85.8 (>60); Glucose 204 mg/dL (70-100); HDL Cholesterol 56.7 mg/dL; LDL Cholesterol 108 mg/dL; Potassium 3.5 mmol/L (3.5-5.0); Sodium 138 mmol/L (135-145); Total Protein 7.3 g/dL (6.4-8.9); Triglycerides 75 mg/dL
[2018-10-19] MEDS ORDERED: levETIRAcetam IV* 1,000 MG in NS 0.9% 100 ML* 100 ML IVPB ONE (06:23)
[2018-10-19 06:35] LABS: Alcohol < 10 mg/dL (<10)
--- NOTE | 2018-10-19 07:18 | ED ---
Progress - Progress Note Progress Note: RECEIVING SIGN-OUT FROM DR. ARAMBULA AT SHIFT CHANGE PENDING PT ADMISSION. Pt is a 53 y/o F brought in by ambulance for AMS, last known normal was approx 2200 on 10/18/18. Course/Dx - Course Course Of Treatment: RECEIVING SIGN-OUT FROM DR. ARAMBULA AT SHIFT CHANGE PENDING PT ADMISSION. - Diagnoses Provider Diagnoses: Seizure Discharge - Sign-Out/Discharge Documenting (check all that apply): Patient Departure - ADMIT Receiving patient FROM: Ricco Arambula Patient Received Moderate/Deep Sedation with Procedure: No - Discharge Plan Condition: Stable Disposition: ADMITTED TO [facility] Referrals: Eli Bruno MD [Primary Care Provider] - - Billing Disposition and Condition Condition: STABLE Disposition: Admitted to [facility] - Attestation Statements Document Initiated by Scribe: Yes Documenting Scribe: Aylin Stewart Provider For Whom Scribe is Documenting (Include Credential): Dr. Ricco Vegas MD Scribe Attestation: I, rodger Aguilaribed for Dr. Ricco Vegas MD on 10/19/18 at 1246. Scribe Documentation Reviewed: Yes Provider Attestation: The documentation as recorded by the Aylin lambert accurately reflects the service I personally performed and the decisions made by me, Dr. Ricco Vegas MD Status of Scribe Document: Viewed
[2018-10-19] MEDS ORDERED: Acetaminophen TAB* 325 MG PO PRN (08:13)
[2018-10-19] MEDS ORDERED: Dextrose 50% Syringe 50 ML* 25 GM/50 ML SYRINGE IV PUSH PRN (08:15)
[2018-10-19] MEDS ORDERED: Albuterol HFA INHALER* 8 gm MDI INH PRN (08:20)
[2018-10-19] MEDS: Insulin GLARGINE(*) 1 UNITS UNIT SUBCUT SCH (09:46)
[2018-10-19] MEDS: Hydrochlorothiazide TAB* 25 MG PO SCH (09:46)
[2018-10-19] MEDS: Losartan TAB* 25 MG PO SCH (09:46)
[2018-10-19] MEDS: Aspirin EC TAB* 325 MG PO SCH (11:04)
[2018-10-19] MEDS: Insulin LISPRO* 1 UNITS UNIT SUBCUT SCH ×3 (11:22→21:16)
[2018-10-19] MEDS: Acetaminophen TAB* 325 MG PO PRN ×2 (11:30→20:01)
--- NOTE | 2018-10-19 11:55 | HP ---
CC: Dr. Bruno; Dr. Alvarado; Dr. Villagomez * HISTORY AND PHYSICAL: DATE OF ADMISSION: 10/19/18 TIME OF EVALUATION: 8:00 a.m. PRIMARY CARE PROVIDER: Dr. Bruno. NEUROLOGIST: Dr. Alvarado. CONSULTING NEUROLOGIST: Dr. Villagomez. CHIEF COMPLAINT: Seizure as per ED provider. HISTORY OF PRESENT ILLNESS: Mrs. Deluna is a 53-year-old lady with a past medical history of type 2 diabetes, hypertension, hyperlipidemia, asthma, obesity, history of CVA in August 2017, who presents to the emergency room after a seizure at home. The patient does not recall any of the events and the information is obtained from the ED provider. According to Dr. Galeana, the patient presented to the ED with a chief complaint of altered mental status and seizure-like activity prior to admission. He was able to obtain permission from her son. The son was walking up from sleep by the family dog barking. He went to find out what was making the dog bark and he found the mother sitting on a chair in the living room having a convulsion. She was described as foaming at the mouth and was not responding. EMS was called and while waiting for them to arrive, she stopped convulsing gradually, but was unresponsive and only minimally responsive by the time she was wheeled out to the ambulance. In August 2017, the patient presented to [facility] after an episode that was felt to be syncopal episode with confusion, right-sided weakness, and at that point, the conclusion was that the patient had a stroke. She was transferred to [facility] and the patient is able to tell me that she has regained her function and has been able to manage independently. At this point, she is alert and awake, but still has some right-sided weakness and some dysarthria. She tells me that over the past week, she was having some mild headache that she attributed to the fact she was working on the computer a lot. She says that yesterday she did not feel anything different, just this headache and she was working on her computer until late. She does not recall any of the events after that. The patient states that she can hear the words in her head, but they "don't come out right." She also complains of tongue pain. PAST MEDICAL HISTORY: 1. Type 2 diabetes. 2. Hypertension. 3. Hyperlipidemia. 4. Asthma. 5. History of CVA in August 2017. PAST SURGICAL HISTORY: 1. Status post . 2. Status post hysterectomy. MEDICATIONS: 1. Acetaminophen 660 mg p.o. q.6 hours p.r.n. pain or fever. 2. Albuterol HFA 2 puffs inhaled q.4 hours p.r.n. shortness of breath. 3. Aspirin 325 mg p.o. daily. 4. Atorvastatin 20 mg p.o. daily. 5. Hydrochlorothiazide 25 mg p.o. daily. 6. Lantus 28 units subcutaneously daily. 7. Losartan 100 mg p.o. daily. 8. Metformin 750 mg p.o. b.i.d. 9. Ozempic 1 mg percutaneously weekly. ALLERGIES: No known drug allergies, but the patient is allergic to PEANUTS. FAMILY HISTORY: Mother had a history of colon cancer. SOCIAL HISTORY: No history of tobacco, alcohol, or other drug use. Surrogate decision maker is her son, Luis Hatch. Phone number is [phone]. REVIEW OF SYSTEMS: Limited due to the patient's dysarthria, but all the pertinent negative and positive findings are in the HPI. PHYSICAL EXAMINATION GENERAL: The patient is an obese middle-aged lady, sitting up in the stretcher , in no acute distress, but listing to the right. VITAL SIGNS: Temperature 99.8, heart rate is 90, respiratory rate is 24, oxygen saturation is 98% on room air, blood pressure is 112/74. HEENT: Pupils are equal, moist mucous membranes. There is a tongue bite on the left. CHEST: Breath sounds bilaterally with no added sounds. CVS: Normal S1 and S2, regular rate and rhythm. ABDOMEN: Obese, bowel sounds are present. NEUROLOGIC: The patient is alert, awake, oriented x3. She has dysarthria that she describes as "hearing the words in my head, but they don't come out." She has a breathy low voice and hesitates when speaking but her articulation sounds fine. There is right hemiparesis. She cannot lift the right arm against gravity and she cannot lift the right leg against resistance. DIAGNOSTIC STUDIES/LAB DATA: The patient had a CBC that showed WBC of 13.6, hemoglobin 13, hematocrit 39, platelets of 461. INR is 1. Chemistry showed a sodium 138, potassium 3.5, chloride of 100, bicarb of 25, anion gap 13, BUN of 15, creatinine of 0.71, glucose 204. Lactic acid is 1.8. LFTs were normal except for AST of 9 and alk phos 133. Her lipid profile showed triglycerides of 75, cholesterol of 180, LDL of 108, HDL 56. Serum alcohol level of less than 10. CT of the brain without contrast showed no acute intracranial abnormality. Chest x- ray showed no active cardiopulmonary disease. EKG done on 10/19/18 at 5:31 a.m. showed sinus rhythm and 90 beats per minute with no acute ischemic changes and no significant changes when compared to her prior EKG from August 2017. ASSESSMENT AND PLAN: Mrs. Deluna is a 53-year-old lady with a past medical history of diabetes, hypertension, hyperlipidemia, obesity, asthma, and prior CVA, who presents to the emergency room after a reported seizure at home, still with persistent right hemiparesis and dysarthria. 1. Seizure. The report from Dr. Arambula is very compelling for new-onset seizure. The patient will be admitted as observation to the telemetry floor. The case was discussed with Neurology (Dr. Villagomez) who you will see her in consultation. The recommendation at this time is to load her with Keppra. Check an MRI of the brain without contrast and an EEG. The patient will be monitored with neuro checks. 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 2. History of CVA. The patient will be continued on aspirin and atorvastatin. We will increase her atorvastatin as her LDL is 108. So, we are going to increase it from 20 to 40 mg. 3. Hypertension, is controlled at this time. We will continue hydrochlorothiazide and losartan. 4. Type 2 diabetes. The patient will be maintained on Lantus and lispro sliding scale. I am going to hold her metformin for now as she may need contrast at studies. 5. Asthma is stable at this time. Continue bronchodilators p.r.n. 6. DVT prophylaxis. The patient has a score of 2 on the DVT Prophylaxis Assessment Guide and she will be started on subcutaneous heparin. 7. Code status is full. TIME SPENT: Approximately 55 minutes were spent with the patient interview, medical records review, physical examination to complete this admission; more than half of this time was spent ecbi-en-gils with the patient in coordination of care. [id number]/[facility] #: [id number] JORGE A
[2018-10-19] MEDS: Heparin VIAL(*) 5000 UNITS/ML VIAL (FIVE THOUSAND) SUBCUT SCH ×2 (14:15→21:18)
[2018-10-19 14:55] LABS: Barbiturates Urine Screen None Detected (None Detect); Benzodiazepine Urine Screen None Detected (None Detect); Urine Cannabinoids Screen None Detected (None Detect)
[2018-10-19 15:06] LABS: Urine Appearance Cloudy; Urine Bacteria Absent (Absent); Urine Bilirubin Negative (Negative); Urine Blood Negative (Negative); Urine Color Yellow; Urine Glucose Negative (Negative); Urine Ketones Negative (Negative); Urine Nitrite Negative (Negative); Urine Protein Negative (Negative); Urine Red Blood Cell 1+(3-5/hpf) (Absent); Urine Specific Gravity 1.014 (1.010-1.030); Urine Squamous Epithelial Cell Present (Absent); Urine Urobilinogen Negative (Negative); Urine White Blood Cell 1+(6-10/hpf) (Absent)
[2018-10-19] MEDS ORDERED: Atorvastatin* 20 MG TAB PO SCH (17:00)
[2018-10-19] MEDS: levETIRAcetam IV* 1,000 MG in NS 0.9% 100 ML* 100 ML IVPB SCH (17:39)
[2018-10-19] MEDS: Atorvastatin* 40 MG TAB PO SCH (17:41)
[2018-10-19] MEDS ORDERED: PROCHLORPERAZINE INJ 5 MG/ML 2 ML VIAL IV PRN (17:47)
--- NOTE | 2018-10-19 22:48 | EEG ---
ELECTROENCEPHALOGRAPHY: DATE OF STUDY: 10/19/18 REFERRING PROVIDER: Dr. Lozoya. LOCATION: She is an inpatient, room 448. CLINICAL PROBLEM: Observed convulsion the day prior to this recording. MEDICATIONS: The patient is on insulin, Lipitor, Keppra, heparin, hydrochlorothiazide, losartan. REPORT: This 16-channel EEG is remarkable for abundant low to moderate voltage beta rhythms, particularly bifrontally. There is some muscle artifact as well. There is a low abundant alpha rhythm in the occipital derivations at about 11 cycles per second which is symmetric. There is some blink and frown artifact. Activation procedures are not attempted. There are no clinical events. The patient did not appear to drowse or sleep during the recording. There are no focal, lateralized, or epileptiform abnormalities. CLINICAL IMPRESSION: Generally normal awake EEG other than excessive beta activity which could be due to possible drug effect. There are no focal or epileptiform features to this recording. [id number]/[facility] #: [id number] MTDD
--- NOTE | 2018-10-20 01:01 | CONS ---
CC: Dr. Kirill Alvarado * NEUROLOGY CONSULTATION REPORT: DATE OF CONSULT: 10/19/18 LOCATION: She is in room 448. REFERRING PHYSICIAN: Dr. Zhao. PRIMARY CARE PROVIDER: Dr. Bruno. CHIEF COMPLAINT: Seizure. HISTORY OF PRESENT ILLNESS: Myriam Deluna is a 53-year-old right-handed woman who came in to the emergency room this morning by ambulance. The history according to Dr. Zhoa and Dr. Arambula was that her son heard their dog barking and went out to find his mother sitting in a chair in the living room convulsing. According to the hospital note, she was foaming at the mouth and unresponsive. Ambulance was called and she stopped convulsing before they got there. She was unresponsive or minimally responsive by the time that she was wheeled out to the ambulance. She does not recall waking up this morning or being in an ambulance. She does not remember being in the emergency room. She remembers coming up to the current hospital room. She currently feels diffusely weak, but worse on the right side. According to Dr. Arambula's emergency room note, the patient complained of headache and nausea and neck and tongue pain in the emergency room. Dr. Arambula' s examination was notable for initially difficulty getting her to look to the left, but was able to get her to look to the left with encouragement. She was described as awake and alert with a flat affect and very slow to answer questions. Her strength was described as slightly diminished on the right, although diffusely diminished with the suspicion that it was effort related. She was inaccurate on njnbrr-ub-xyjy maneuver with both arms. She had an episode in August 2017 where she was hospitalized. I reviewed those records. She presented with a possible convulsion or syncope, and when she came in to the hospital, had right-sided weakness. She had a negative MRI scan of the brain, but was felt by Dr. Alvarado to probably have had a small stroke. She spent several days in the rehab unit and went home. She says she fully recovered. She had an EEG back then, interpreted as normal. When asked if there were any other episodes, she says over 10 years ago when she lived in [place], she had an episode where both of her legs were numb and weak and she could not walk. She was in a wheelchair for what sounds like more than a month. She says they could not figure out the etiology of her deficits. PAST MEDICAL HISTORY: Notable for diabetes, an event monitor placed after her stroke in 2018. MEDICATIONS: At home consist of: 1. Aspirin 325 mg p.o. daily. 2. Atorvastatin 20 mg p.o. daily. 3. Hydrochlorothiazide 25 mg p.o. daily. 4. Insulin. 5. Losartan 100 mg p.o. daily. 6. Metformin 750 mg p.o. b.i.d. 7. Ozempic 1 mg subcu weekly. ALLERGIES: She does not have any drug allergies, but is allergic to peanuts. SOCIAL HISTORY: She works and one of her coworkers is with her. She lives with her son. She does not smoke and does not drink alcohol. REVIEW OF SYSTEMS: Notable for a bad headache since this morning. She says she normally does not get headaches. She has not been sick recently and felt fine last night. She has not had any recent fevers or infections. PHYSICAL EXAMINATION: She is an obese woman lying in her hospital bed. Temperature is 98.6 orally, blood pressure 110/75, heart rate is in the 80s and seems regular. Respiratory rate is 16 and oxygen saturation is 96% room air. Heart tones are distant; I do not hear any murmurs. There are no cervical bruits. Oral mucosa is moist. I can only get her to weakly protrude her tongue and weakly open her mouth, but I do not see any trauma. Tongue does protrude in the midline and palate does rise symmetrically. Speech is soft and somewhat stuttering. She struggles to get words out, but her sentence structure is fluent. Her facial musculature is symmetric. She does not feel light touch on either side of her face. Pupils respond equally from 3 down to 2 mm. Funduscopic exam reveals sharp discs bilaterally. Visual cole are full to confrontation. Visual tracking is inconsistent, but generally full. Motor exam reveals normal tone in the limbs. She is diffusely weak. She, however, holds up the right leg about 4 to 5 inches off the bed stiffly and is able to keep it there. The left leg she raises up about 6 to 8 inches and holds it there stiffly. When asked to raise her arms out in front of her, she raises the right arm out stiffly somewhat to the side and lower than the left arm, which is raised somewhat higher. There is no drift, however, with eyes closed. When testing formal strength, she breaks away pretty easily diffusely, but worse on the right arm and leg. She reports decreased light touch in the right leg relative to the left and absent light touch in the right hand. Vibration sense is diminished in all limbs. Reflexes are hypoactive, but present, other than absent ankle reflexes. Plantar responses are flexor bilaterally. Qzvedn-aa-epce maneuver is slow, but accurate on the left. With the right, she reaches out past my finger and touches the side of my hand. When she attempts to touch her nose, she touches the left side of her face. There is no tremor. She is sleepy, but able to answer questions. She does not recall the details of earlier today. Her speech is halting, but with effort she is able to produce fluent sentences. She seems to comprehend all questions well. DIAGNOSTIC STUDIES/LAB DATA: Includes an EEG which reveals some increased beta activity, but no focal or epileptiform discharges. MRI of the brain reveals some nonspecific white matter changes, but no evidence of infarctions remotely or acutely. A chest x-ray is interpreted as no active cardiopulmonary disease. CT of the brain without contrast is interpreted as normal. Other laboratory data notable for CBC with a mildly elevated white count of 13.6 , platelet count elevated at 461,000. Chemistry is notable for glucose this morning of 204, normal lactic acid. Alkaline phosphatase is mildly elevated at 133 and chemistry profile is, otherwise, unremarkable. Her cholesterol was 180 this morning and LDL 108. A urine toxicology screen this morning is negative. INR and PTT are within normal limits. Urinalysis is notable for trace leukocyte esterase, 1+ white blood cells and red blood cells, absent bacteria. IMPRESSION: Impression is that of a possible new-onset seizure disorder. Currently, her exam looks functional. She has been given Keppra 1000 mg in the emergency room. She is on Keppra 1000 mg q.12 hours on maintenance as well. I agree with this choice. PLAN: I told Ms. Deluna that she is probably tired and weak from recovering from the seizure. I told her I expect that she will feel better tomorrow and her strength will recover. I explained that there is no evidence of a stroke on her MRI scan. I will reevaluate her again tomorrow. She will have to be advised that she cannot drive for 6 months from this episode and she needs to notify the Department of Motor Vehicles of her diagnosis. [id number]/[facility] #: [id number] JORGE A
[2018-10-20] MEDS: Acetaminophen TAB* 325 MG PO PRN ×2 (03:47→10:15)
[2018-10-20] MEDS: Heparin VIAL(*) 5000 UNITS/ML VIAL (FIVE THOUSAND) SUBCUT SCH ×3 (06:01→22:55)
[2018-10-20] MEDS: levETIRAcetam IV* 1,000 MG in NS 0.9% 100 ML* 100 ML IVPB SCH ×2 (06:01→16:53)
[2018-10-20] MEDS: Insulin LISPRO* 1 UNITS UNIT SUBCUT SCH ×4 (09:02→22:55)
[2018-10-20] MEDS: Losartan TAB* 25 MG PO SCH (11:06)
[2018-10-20] MEDS: Insulin GLARGINE(*) 1 UNITS UNIT SUBCUT SCH (11:06)
[2018-10-20] MEDS: Aspirin EC TAB* 325 MG PO SCH (11:06)
[2018-10-20] MEDS: Hydrochlorothiazide TAB* 25 MG PO SCH (11:06)
[2018-10-20 13:10] LABS: ABS Basophils 0.1 10^3/ul (0-0.2); ABS Eosinophils 0.2 10^3/ul (0-0.6); ABS Monocytes 0.5 10^3/ul (0-0.8); ABS Neutrophils 6.7 10^3/ul (1.5-7.7); ABS Nucleated RBC 0 10^3/ul; Eosinophil % 2.1 %; Hematocrit 37 % (33-41); Hemoglobin 12.3 g/dL (12.0-16.0); Lymphocyte % 28.9 %; Mean Corpuscular HGB Conc 33 g/dL (31-36); Mean Corpuscular Hemoglobin 29 pg (27-31); Mean Corpuscular Volume 86 fL (80-97); Mean Platelet Volume 7.8 fL (7.4-10.4); Nucleated Red Blood Cells % 0; Platelet Count 398 10^3/uL (150-450); Red Cell Distribution Width 15 % (10.5-15); White Blood Count 10.6 10^3/uL (3.5-10.8)
[2018-10-20 13:26] LABS: Calcium 9.2 mg/dL (8.6-10.3); EGFR African American 105.5 (>60); EGFR Non-African American 87.2 (>60); Potassium 3.5 mmol/L (3.5-5.0)
[2018-10-20] MEDS ORDERED: Ketorolac INJ* 30 MG/ML 1 ML VIAL IV PRN (14:32)
--- NOTE | 2018-10-20 15:23 | PN ---
NEUROLOGY FOLLOWUP NOTE: DATE OF VISIT: 10/20/18 LOCATION: She is inpatient, room 448. CHIEF COMPLAINT: Right-sided weakness, seizure. INTERVAL HISTORY: Since yesterday, Ms. Deluna feels better, but that her right side is still weak. She was able to ambulate with assistance to the bathroom. She complains of some neck pain. She also has a headache. She has no other complaints at this point in time. MEDICATIONS: 1. Aspirin 325 mg p.o. q. day. 2. Atorvastatin 40 mg p.o. q. day. 3. Subcutaneous heparin 5000 units q.8 hours. 4. Hydrochlorothiazide 25 mg p.o. q. day. 5. Sliding scale insulin. 6. Keppra 1000 mg IV q.12 hours. 7. Losartan 100 mg p.o. q. day. PHYSICAL EXAM: On exam, she is overweight. Temperature 97.4, blood pressure most recently 107/66, heart rate 72 and regular, respirations 16, oxygen saturation 96% on room air. NEUROLOGICAL EXAM: Facial musculature is symmetric. She makes a week effort at eye closure, but it is very symmetric. Speech is soft, but clear. Muscle tone in the arms is normal. There is some odd posturing of the arms when testing for pronator drift in that the right arm is held stiffly out to the right and lower than the left arm which is held stiffly out to the left. Fingertips are normal in the left hand and slow and methodical in the right hand. Sauinq-jb-ltml maneuver is normal in left than the right. She misses my finger entirely and touches the upper lip. Lower extremities, she is able to hold the legs up off the bed with left one a good foot off the bed with the right shoulder about 4 inches off the bed stiffly. Language is fluent. DIAGNOSTIC STUDIES/LAB DATA: Notable today for unremarkable chemistry profile, glucose 156 this morning, yesterday cholesterol 180 and LDL 108. Her atorvastatin has since been increased. IMPRESSION: Possible new-onset seizure disorder and a functional exam. I do not think she has had another cerebrovascular accident. PLAN/RECOMMENDATIONS: We will switch her Keppra to oral therapy and hopefully, she will improve well enough she can go home tomorrow. Agree with increasing the atorvastatin. I would continue aspirin and I do not recommend adding anything additional in terms of anti-platelet therapy as I do not think she has had a cerebrovascular event. Dr. Alvarado will be coming on services evening and I will sign her off to him. [id number]/[facility] #: [id number] MTDStanton
[2018-10-20] MEDS: Atorvastatin* 40 MG TAB PO SCH (16:53)
--- NOTE | 2018-10-20 18:36 | PN ---
Subjective Date of Service: 10/20/18 Interval History: Patient lying in bed on assessment. Reports continued weakness and fatigue, but slightly improved from yesterday. Reports neck pain which started this morning. Aggravating factors include movement. No alleviating factors. No cp, palpitations, cough, sob, nausea, vomiting, diarrhea, fever, chills. Objective Active Medications: Acetaminophen (Tylenol Tab*) 650 mg PO Q6H PRN PRN Reason: PAIN Last Admin: 10/20/18 10:15 Dose: 650 mg Albuterol (Ventolin Hfa Inhaler*) 2 puff INH Q4H PRN PRN Reason: wheeze Aspirin (Ecotrin Ec Tab*) 325 mg PO DAILY [facility] Last Admin: 10/20/18 11:06 Dose: 325 mg Atorvastatin Calcium (Lipitor*) 40 mg PO 1700 [facility] Last Admin: 10/20/18 16:53 Dose: 40 mg Dextrose (D50w Syringe 50 Ml*) 12.5 gm IV PUSH .FOR FS < 60 - SS PRN PRN Reason: FS < 60 Heparin Sodium (Porcine) (Heparin Vial(*)) 5,000 units SUBCUT Q8HR [facility] Last Admin: 10/20/18 12:47 Dose: 5,000 units Hydrochlorothiazide (Hydrodiuril Tab*) 25 mg PO DAILY [facility] Last Admin: 10/20/18 11:06 Dose: 25 mg Levetiracetam 1,000 mg/ Sodium (Chloride) 110 mls @ 440 mls/hr IVPB Q12H [facility] Last Admin: 10/20/18 16:53 Dose: 440 mls/hr Insulin Glargine (Lantus(*)) 20 units SUBCUT DAILY [facility] Last Admin: 10/20/18 11:06 Dose: 20 units Insulin Human Lispro (Humalog*) 0 units SUBCUT ACHS [facility]; Protocol Last Admin: 10/20/18 16:58 Dose: 2 unit Ketorolac Tromethamine (Toradol Inj*) 30 mg IV Q6H PRN PRN Reason: PAIN Losartan Potassium (Cozaar Tab*) 100 mg PO DAILY [facility] Last Admin: 10/20/18 11:06 Dose: 100 mg Prochlorperazine Edisylate (Compazine Inj*) 5 mg IV Q6H PRN PRN Reason: NAUSEA/VOMITING Last Admin: 10/19/18 20:00 Dose: 5 mg Vital Signs - 8 hr 10/20/18 10/20/18 11:31 15:20 Temperature 97.4 F 98.1 F Pulse Rate 72 76 Respiratory 16 16 Rate Blood Pressure 107/66 105/66 (mmHg) O2 Sat by Pulse 96 98 Oximetry Oxygen Devices in Use Now: None Appearance: Comfortable, NAD Eyes: No Scleral Icterus, PERRLA Ears/Nose/Mouth/Throat: Clear Oropharnyx, Mucous Membranes Moist Neck: NL Appearance and Movements; NL JVP Respiratory: Symmetrical Chest Expansion and Respiratory Effort, Clear to Auscultation Cardiovascular: NL Sounds; No Murmurs; No JVD, RRR, No Edema Abdominal: NL Sounds; No Tenderness; No Distention Lymphatic: No Cervical Adenopathy Extremities: No Clubbing, Cyanosis Skin: No Rash or Ulcers Neurological: Alert and Oriented x 3, NL Sensation, - - decrease strength and coordination on right. Nutrition: Taking PO's Result Diagrams: 10/20/18 12:54 10/20/18 12:54 Additional Lab and Data: Laboratory Results - last 24 hr 10/19/18 10/19/18 10/20/18 21:16 23:48 07:28 WBC RBC Hgb Hct MCV MCH MCHC RDW Plt Count MPV Neut % (Auto) Lymph % (Auto) [place] % (Auto) Eos % (Auto) Baso % (Auto) Absolute Neuts (auto) Absolute Lymphs (auto) Absolute Monos (auto) Absolute Eos (auto) Absolute Basos (auto) Absolute Nucleated RBC Nucleated RBC % Sodium Potassium Chloride Carbon Dioxide Anion Gap BUN Creatinine Est GFR ( Amer) Est GFR (Non-Af Amer) BUN/Creatinine Ratio Glucose POC Glucose (mg/dL) 114 H 101 H 98 Calcium 10/20/18 10/20/18 10/20/18 12:18 12:54 12:54 WBC 10.6 RBC 4.30 Hgb 12.3 Hct 37 MCV 86 MCH 29 MCHC 33 RDW 15 Plt Count 398 MPV 7.8 Neut % (Auto) 63.6 Lymph % (Auto) 28.9 [place] % (Auto) 4.9 Eos % (Auto) 2.1 Baso % (Auto) 0.5 Absolute Neuts (auto) 6.7 Absolute Lymphs (auto) 3.0 Absolute Monos (auto) 0.5 Absolute Eos (auto) 0.2 Absolute Basos (auto) 0.1 Absolute Nucleated RBC 0 Nucleated RBC % 0 Sodium 139 Potassium 3.5 Chloride 103 Carbon Dioxide 30 Anion Gap 6 BUN 14 Creatinine 0.70 Est GFR ( Amer) 105.5 Est GFR (Non-Af Amer) 87.2 BUN/Creatinine Ratio 20.0 Glucose 156 H POC Glucose (mg/dL) 148 H Calcium 9.2 10/20/18 16:07 WBC RBC Hgb Hct MCV MCH MCHC RDW Plt Count MPV Neut % (Auto) Lymph % (Auto) [place] % (Auto) Eos % (Auto) Baso % (Auto) Absolute Neuts (auto) Absolute Lymphs (auto) Absolute Monos (auto) Absolute Eos (auto) Absolute Basos (auto) Absolute Nucleated RBC Nucleated RBC % Sodium Potassium Chloride Carbon Dioxide Anion Gap BUN Creatinine Est GFR ( Amer) Est GFR (Non-Af Amer) BUN/Creatinine Ratio Glucose POC Glucose (mg/dL) 176 H Calcium Microbiology and Other Data: Microbiology 10/19/18 14:21 Urine Urine Culture - Final No Growth (<1,000 CFU/mL) Assess/Plan/Problems-Billing Assessment: 53 yr old female with pmh of DM@, htn, hld, asthma, obestiy, cva; who presented to the ED with new onset seizure. - Patient Problems (1) Seizure Comment: - Neurology consulting - Normal awake EEG; No epileptiform activity - MRI and CT unremarkable (2) HTN (hypertension) Comment: - Cont HCTZ and Losartan (3) Type 2 diabetes mellitus Comment: - Cont Lantus and SS - Cont to Hold Metformin (4) DVT prophylaxis Comment: - Heparin (5) Full code status Attending: Jessica Montalvo
[2018-10-21] MEDS: levETIRAcetam IV* 1,000 MG in NS 0.9% 100 ML* 100 ML IVPB SCH (05:47)
[2018-10-21] MEDS: Heparin VIAL(*) 5000 UNITS/ML VIAL (FIVE THOUSAND) SUBCUT SCH ×3 (05:47→20:39)
[2018-10-21] MEDS: Acetaminophen TAB* 325 MG PO PRN (06:24)
[2018-10-21] MEDS: Insulin LISPRO* 1 UNITS UNIT SUBCUT SCH ×4 (08:08→20:38)
[2018-10-21] MEDS: Losartan TAB* 25 MG PO SCH (08:17)
[2018-10-21] MEDS: Aspirin EC TAB* 325 MG PO SCH (08:17)
[2018-10-21] MEDS: Insulin GLARGINE(*) 1 UNITS UNIT SUBCUT SCH (08:17)
[2018-10-21] MEDS: Hydrochlorothiazide TAB* 25 MG PO SCH (08:17)
--- NOTE | 2018-10-21 11:17 | PN ---
Subjective Date of Service: 10/21/18 Interval History: Reports she would like to go home, but has stairs to get into the home and several stairs to get to bedroom. Further explains that she that she can sleep on her couch downstairs until stronger, but she does have to ambulate to the bathroom and get into home. When discussed ambulating to bathroom she states that she will not eat and drink a lot and will not have to go as often. Educated on risk of decrease intake and being home without assistance due to unsteady gait. Patient continues to report right sided weakness. She reports right sided numbness/tingling (which was previously reported in heal) has resolved, but now has pain in toes. Denies neck pain and headache today. Denies cp, palpitations, nausea, vomiting, diarrhea. Objective Active Medications: Acetaminophen (Tylenol Tab*) 650 mg PO Q6H PRN PRN Reason: PAIN Last Admin: 10/21/18 06:24 Dose: 650 mg Albuterol (Ventolin Hfa Inhaler*) 2 puff INH Q4H PRN PRN Reason: wheeze Aspirin (Ecotrin Ec Tab*) 325 mg PO DAILY [facility] Last Admin: 10/21/18 08:17 Dose: 325 mg Atorvastatin Calcium (Lipitor*) 40 mg PO 1700 [facility] Last Admin: 10/20/18 16:53 Dose: 40 mg Dextrose (D50w Syringe 50 Ml*) 12.5 gm IV PUSH .FOR FS < 60 - SS PRN PRN Reason: FS < 60 Heparin Sodium (Porcine) (Heparin Vial(*)) 5,000 units SUBCUT Q8HR [facility] Last Admin: 10/21/18 05:47 Dose: 5,000 units Hydrochlorothiazide (Hydrodiuril Tab*) 25 mg PO DAILY [facility] Last Admin: 10/21/18 08:17 Dose: 25 mg Insulin Glargine (Lantus(*)) 20 units SUBCUT DAILY [facility] Last Admin: 10/21/18 08:17 Dose: 20 units Insulin Human Lispro (Humalog*) 0 units SUBCUT ACHS [facility]; Protocol Last Admin: 10/21/18 08:08 Dose: Not Given Ketorolac Tromethamine (Toradol Inj*) 30 mg IV Q6H PRN PRN Reason: PAIN Levetiracetam (Keppra Tab*) 1,000 mg PO Q12H [facility] Losartan Potassium (Cozaar Tab*) 100 mg PO DAILY [facility] Last Admin: 10/21/18 08:17 Dose: 100 mg Prochlorperazine Edisylate (Compazine Inj*) 5 mg IV Q6H PRN PRN Reason: NAUSEA/VOMITING Last Admin: 10/19/18 20:00 Dose: 5 mg Vital Signs - 8 hr 10/21/18 10/21/18 07:11 07:24 Temperature 97.7 F Pulse Rate 73 Respiratory 20 20 Rate Blood Pressure 108/73 (mmHg) O2 Sat by Pulse 99 Oximetry Oxygen Devices in Use Now: None Appearance: Comfortable, NAD Eyes: PERRLA Ears/Nose/Mouth/Throat: Clear Oropharnyx, Mucous Membranes Moist Neck: NL Appearance and Movements; NL JVP Respiratory: Symmetrical Chest Expansion and Respiratory Effort, Clear to Auscultation Cardiovascular: NL Sounds; No Murmurs; No JVD, RRR, No Edema Abdominal: NL Sounds; No Tenderness; No Distention Lymphatic: No Cervical Adenopathy Extremities: No Clubbing, Cyanosis Skin: No Rash or Ulcers Neurological: Alert and Oriented x 3, NL Sensation, - - Gait unsteady as she is requiring walker and one max assist with gait belt. Cont to have decrease strength on right upper and lower extremities. Cont to have decreae coordination with right upper extremity during finger to nose test. Cranial nerves grossly intact. Nutrition: Taking PO's Result Diagrams: 10/20/18 12:54 10/20/18 12:54 Additional Lab and Data: Laboratory Results - last 24 hr 10/20/18 10/21/18 10/21/18 20:56 07:29 11:43 POC Glucose (mg/dL) 223 H 123 H 254 H Microbiology and Other Data: Microbiology 10/19/18 14:21 Urine Urine Culture - Final No Growth (<1,000 CFU/mL) Assess/Plan/Problems-Billing Assessment: 53 yr old female with pmh of DM@, htn, hld, asthma, obestiy, cva; who presented to the ED with new onset seizure. - Patient Problems (1) Weakness Comment: - Continues to have generalized weakness in addition to right sided weakness. - Observed with physical therapy and patient is not safe for discharge home given current assistance needs. Discussed rehab and patient is agreable to PMRU evaluation, but not other subacute rehab placement elsewhere - If she improves could be discharged home with nursing services, but currently would not be able to get up steps to home and to bathroom as needed. PT agrees. (2) Seizure Comment: - Neurology consulting - Normal awake EEG; No epileptiform activity - MRI and CT unremarkable - No seizure activity while inpatient - Cont seizure precautions - Neuro checks have been stable therefore decreased in frequency - Keppra changed to PO (3) HTN (hypertension) Comment: - Cont HCTZ and Losartan (4) Type 2 diabetes mellitus Comment: - Cont Lantus and SS - Cont to Hold Metformin (5) DVT prophylaxis Comment: - Heparin (6) Full code status Attending: Candi Tracy
[2018-10-21] MEDS: Atorvastatin* 40 MG TAB PO SCH (16:52)
[2018-10-21] MEDS ORDERED: levETIRAcetam TAB* 500 MG PO SCH ×3 (17:00→21:00)
--- NOTE | 2018-10-21 22:04 | PN ---
NEUROLOGICAL FOLLOWUP: DATE OF SERVICE: 10/21/18 PATIENT OF: Dr. Alvarado, Sandra Hdez NP. HISTORY: This is a 53-year-old woman I am seeing in followup of a seizure, she has had now, on Keppra. She has had no further events, but it has been unsteady and so was not sent home today. MEDICATIONS: Include: 1. Keppra 1000 mg twice a day. 2. Cozaar 100 mg daily. 3. Humalog sliding scale insulin 20 units daily. 4. HydroDIURIL 25 mg daily. 5. Lipitor 40 mg daily. 6. Aspirin 325 daily. 7. Ventolin 2 puffs q.4 hours p.r.n. wheeze. She feels stiff and has some pain in her legs, but nothing focal. PHYSICAL EXAMINATION: Temperature 97.9, pulse 69, respirations 20, blood pressure 108/71. She is alert and oriented with normal speech and comprehension. Cranial nerves II through XII are intact. Motor exam revealed normal tone and strength. She walked with the hesitancy and is lurching on both sides that appeared possibly nonphysiologic. Dr. Villagomez also thought that there was possibly functional of late. DIAGNOSTIC STUDIES/LAB DATA: She had an EEG and an MRI scan that showed most likely chronic small vessel ischemic disease, but no acute infarct. ASSESSMENT AND PLAN: Myriam may have had a new onset of seizure, possibly with prior stroke as the etiology. In any event, she is on Keppra now. I would discuss with Sandra Hdez NP, possible going to a dose of 750 twice a day. Hopefully, she will be able to go home in the next day or so. Thank you for sharing her case. [id number]/[facility] #: [id number] [facility]
[2018-10-22] MEDS ORDERED: levETIRAcetam LIQ* 500 MG/5 ML UDC PO SCH (05:00)
[2018-10-22] MEDS: Heparin VIAL(*) 5000 UNITS/ML VIAL (FIVE THOUSAND) SUBCUT SCH (05:21)
[2018-10-22] MEDS: Losartan TAB* 25 MG PO SCH (07:44)
[2018-10-22] MEDS: Hydrochlorothiazide TAB* 25 MG PO SCH (07:44)
[2018-10-22] MEDS: Aspirin EC TAB* 325 MG PO SCH (07:44)
[2018-10-22] MEDS: Acetaminophen TAB* 325 MG PO PRN (07:45)
[2018-10-22] MEDS: Insulin GLARGINE(*) 1 UNITS UNIT SUBCUT SCH (07:45)
[2018-10-22] MEDS: Insulin LISPRO* 1 UNITS UNIT SUBCUT SCH ×2 (07:45→11:46)
[2018-10-22 11:39] VITALS: BP 110/69
--- NOTE | 2018-10-22 23:23 | DS ---
CC: Dr. Eli Bruno; Dr. Kirill Alvarado.* DISCHARGE SUMMARY: DATE OF ADMISSION: 10/19/18 DATE OF DISCHARGE: 10/22/18 PRIMARY CARE PROVIDER: Dr. Eli Bruno. ATTENDING PHYSICIAN: Dr. Tracy * (dictated by Dennise Odonnell NP) PRIMARY DIAGNOSES: 1. New onset seizure. 2. 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 SECONDARY DIAGNOSES: 1. Diabetes mellitus type 2. 2. Hypertension. STUDIES WHILE IN THE HOSPITAL: 1. Brain CT on 10/19/18, reads as no acute intracranial abnormality. 2. Chest x-ray on 10/19/18, reads as no active cardiopulmonary disease. 3. EKG on 10/19/18 shows normal sinus rhythm with a rate of 90, QTc 455. No ischemic changes. 4. Brain MRI on 10/19/18 reads as there are multiple foci of elevated T2/FLAIR signal within the periventricular and subcortical white matter. While these findings are nonspecific, they can be seen in association with migraine headache as the sequela of previous infection or inflammation and chronic small vessel ischemia. Demyelinating disease is also within the differential that is considered less likely in the absence of appropriate clinical presentation. Otherwise, unremarkable MRI of the brain. There is no restricted diffusion to suggest acute infarct. The mesiotemporal lobes are symmetric. 5. EEG on 10/19/18, reads as generally normal awake EEG other than excessive beta activity which could be due to possible drug effect. There are no focal or epileptiform features to this recording. HISTORY OF PRESENT ILLNESS AND HOSPITAL COURSE: Ms. Deluna is a 53-year-old female with a past medical history of type 2 diabetes, hypertension, hyperlipidemia, and a prior CVA in August 2017, who presented to the emergency room on 10/19/18 with complaints of seizure like activity. Please see the history and physical by Dr. Lozoya for complete summary of the events leading up to this hospitalization. In short, the patient was brought in by EMS. Reportedly her son found her at home in a chair having a convulsion. He describes that she was foaming at the mouth and not responding. When EMS arrived, she was minimally responsive. In the emergency room, she was noted to have right arm weakness and dysarthria. She had imaging as noted above. Because of the concern for a seizure activity and neurological deficits, the patient was admitted by the hospitalist service. She was seen in consultation by Dr. Villagomez from Neurology on the day of admission. He felt as though this episode did represent a new onset seizure disorder and recommended continuing Keppra that was started in the emergency room. He did not feel as though these neurological deficits represented any acute stroke. The patient continued to recover. Her right-sided weakness gradually improved. She was seen by Physical Therapy, who initially felt as though she had acute PT needs, although ultimately on the day of discharge they recommended that she could be discharged to home with continued outpatient physical therapy. The patient did have some concerns about returning home that she does have stairs that she has to maneuver. The patient was kept on Keppra [address] Alvarado followed up on the patient and indicated that this new onset seizure disorder may be due to her prior stroke and recommended continuing the Keppra. The patient's atorvastatin dose was increased and she was noted to have an LDL of 108. As of today, the patient reports feeling well. She again did work with physical therapy this morning and was able to ambulate in the hallways. They felt as though she was safe for discharge home. The patient does note that she has stairs at home, but will not have to maneuver the stairs on a daily basis and will have a significant amount of help from her son. She is anxious to return home. She does continue to display right upper extremity and right lower extremity weakness. On exam, strength is 5/5 in left upper and lower extremities and 3/5 on right upper and lower extremities. She does note that she has some cramping pain in her right leg while ambulating, but has been able to ambulate without much difficulty. She has no other focal neurological deficits and there has been no more evidence of any seizure like activity. Ms. Deluna is stable for discharge today. Vital signs are follows: Temp 97.1 , heart rate 69, respiratory rate 20, oxygen saturation 98% on room air, blood pressure 110/69. DISCHARGE MEDICATIONS: 1. Keppra 750 mg p.o. b.i.d. Changed Medications: 1. Atorvastatin 40 mg p.o. daily (previously was 20 mg daily). Continued Medications: 1. Acetaminophen 650 mg p.o. q.6 hours p.r.n. pain. 2. Albuterol MDI 2 puffs q.4 hours p.r.n., shortness of breath and wheezing. 3. Aspirin 325 mg p.o. daily. 4. Hydrochlorothiazide 25 mg p.o. daily. 5. Lantus 28 units subcu daily. 6. Losartan 100 mg p.o. daily. 7. Metformin 750 mg p.o. b.i.d. 8. Semaglutide 1 mg subcu weekly. DISCHARGE PLAN: Ms. Deluna will be discharged to home. Activity will be as tolerated. I have advised the patient that she can return to work next week so I would suggest that she start with half days at work. 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 As noted above she will have help from her sons at home. She has been referred to visiting nurse services for home physical therapy. Diet will be diabetic. Medications are noted above. Again, the patient has been started on Keppra for her new onset seizure disorder. Her atorvastatin dosing has been increased due to her high LDL. She has been advised that she cannot drive for 6 months after her most recent seizure. She has been advised to return to the emergency room or nearest hospital for any worsening of symptoms, shortness of breath, lightheadedness, dizziness, chest discomfort, high fevers, chills, night sweats, loss of consciousness, or any other worrisome signs or symptoms. DISCHARGE CONDITION: Stable. DISCHARGE DISPOSITION: Home. This is a summarized report of a complex medical history and hospital stay. For further details, please see the entire medical record. TIME SPENT: Approximately 40 minutes was spent on this discharge. DENNISE ODONNELL, [employer] OPERATOR [id number]/[facility] #: [id number] [facility] A
== END 2018-10-22 13:20 | disposition home or self-care (01) | DRG 101 ==
LOC: ED 05:01 → MEDTELE 08:04 → OBSVTOIN 10-20 15:30
PROVIDERS: ADMIT Internal Medicine; ATTEND Internal Medicine
DX: G40.909 Epilepsy, unspecified, not intractable, without status epilepticus (principal); G83.84 Todd's paralysis (postepileptic); E11.9 Type 2 diabetes mellitus without complications; I10 Essential (primary) hypertension; E78.5 Hyperlipidemia, unspecified; I73.89 Other specified peripheral vascular diseases; R53.1 Weakness; R47.1 Dysarthria and anarthria; J45.909 Unspecified asthma, uncomplicated; E66.9 Obesity, unspecified; Z86.73 Personal history of transient ischemic attack (TIA), and cerebral infarction without residual deficits; Z68.34 Body mass index [BMI] 34.0-34.9, adult; Z79.84 Long term (current) use of oral hypoglycemic drugs; Z79.1 Long term (current) use of non-steroidal anti-inflammatories (NSAID); Z79.82 Long term (current) use of aspirin; Z79.4 Long term (current) use of insulin; Z79.51 Long term (current) use of inhaled steroids; Z79.899 Other long term (current) drug therapy; Z91.010 Allergy to peanuts; Z80.0 Family history of malignant neoplasm of digestive organs
CPT/HCPCS: 36415; 70450; 70551; 71045; 80048; 80053; 80061; 80307; 80320; 81003; 81015; 83605; 84484; 85025; 85610; 85730; 87086; 93005; 95816; 99285; A9270-GY; G0378; G0480; J0780; J1644

== ENCOUNTER 2022-05-06 08:32 | Observation (INO) ==
[2022-05-06] MEDS ORDERED: Iodixanol (CONTRAST) 320 MG/ML 100 ML SDV IV ONE (08:39)
[2022-05-06] MEDS ORDERED: Labetalol IV 5 MG/ML 20 ml VIAL IV PUSH ONE (08:42)
[2022-05-06] MEDS ORDERED: Labetalol IV 5 MG/ML 20 ml VIAL ONE (08:42)
[2022-05-06 08:50] LABS: ABS Basophils 0.1 10^3/ul (0-0.2); ABS Lymphocytes 2.1 10^3/ul (1.0-4.8); ABS Monocytes 0.5 10^3/ul (0-0.8); Eosinophil % 0.6 %; Hematocrit 47 % (35-47); Hemoglobin 15.5 g/dL (12.0-16.0); Lymphocyte % 24.2 %; Mean Corpuscular HGB Conc 33 g/dL (31-36); Mean Corpuscular Hemoglobin 29 pg (27-31); Mean Corpuscular Volume 88 fL (80-97); Mean Platelet Volume 8.1 fL (7.4-10.4); Nucleated Red Blood Cells % 0.1; Platelet Count 340 10^3/uL (150-450); Red Blood Count 5.36 10^6 /uL (3.70-4.87); Red Cell Distribution Width 14 % (10-15); White Blood Count 8.7 10^3/uL (3.5-10.8)
[2022-05-06] MEDS ORDERED: levETIRAcetam 1000MG IVPREMIX 1,000 MG/100 ML BAG IVPB ONE (08:51)
[2022-05-06 08:58] LABS: Activated Partial Thrombo Time 36.6 seconds (26.0-38.0); INR 0.94 (0.89-1.11)
[2022-05-06 09:34] LABS: Albumin 4.1 g/dL (3.2-5.2); Albumin/Globulin Ratio 1.5 (1-3); Calcium 9.8 mg/dL (8.6-10.3); Globulin 2.8 g/dL (2-4); HDL Cholesterol 80.8 mg/dL; Potassium 4.8 mmol/L (3.5-5.0); Total Bilirubin 0.7 mg/dL (0.2-1.0); Total Protein 6.9 g/dL (6.4-8.9); eGFR CKD-EPI 100.2 (>60)
[2022-05-06] MEDS ORDERED: diazePAM INJ CARPUJECT 5 MG/ML SYRINGE ONE (10:00)
[2022-05-06] MEDS ORDERED: Albuterol HFA INHALER 8 gm MDI INH PRN (11:26)
[2022-05-06] MEDS ORDERED: Dextrose 50% Syringe 50 ml 25 GM/50 ML SYRINGE IV PUSH PRN (11:46)
[2022-05-06] MEDS ORDERED: Nitroglycerin 0.4 mg/hr PATCH (10 mg) TRANSDERM ONE (12:15)
[2022-05-06] MEDS: Enoxaparin 40 MG/0.4 ML SYR SUBCUT SCH (13:13)
[2022-05-06 13:49] LABS: High Sensitivity Troponin 1 Hr 7 pg/mL (<15)
[2022-05-06 16:53] LABS: C Reactive Protein 11.59 mg/L (<8.01)
[2022-05-06] MEDS ORDERED: Butalb/Acetamin/Caff TAB 325-50-40MG PO ONE (18:30)
[2022-05-06 19:32] LABS: Urine Appearance Clear; Urine Bilirubin Negative (Negative); Urine Blood Negative (Negative); Urine Color Yellow; Urine Glucose 3+(>=500 mg/dL) (Negative); Urine Ketones 1+ (Negative); Urine Nitrite Negative (Negative); Urine Protein 2+(100 mg/dL) (Negative); Urine Specific Gravity 1.055 (1.002-1.030); Urine Urobilinogen Negative (Negative)
[2022-05-06 19:38] LABS: Urine Bacteria Absent (Absent); Urine Red Blood Cell 1+(3-5/hpf) (Absent); Urine Squamous Epithelial Cell Present (Absent); Urine White Blood Cell Trace(0-5/hpf) (Absent)
[2022-05-06] MEDS ORDERED: [UNRECOGNIZED DRUG - OTHER] IVPB ONE (21:00)
[2022-05-06] MEDS ORDERED: Insulin GLARGINE 100 un/ml 10 ml VIAL SUBCUT SCH (21:00)
[2022-05-07 04:49] LABS: ABS Basophils 0.2 10^3/ul (0-0.2); ABS Eosinophils 0.1 10^3/ul (0-0.6); ABS Lymphocytes 2.4 10^3/ul (1.0-4.8); ABS Monocytes 0.4 10^3/ul (0-0.8); ABS Neutrophils 5.1 10^3/ul (1.5-7.7); Eosinophil % 1.1 %; Hematocrit 40 % (35-47); Lymphocyte % 29.6 %; Mean Corpuscular HGB Conc 33 g/dL (31-36); Mean Corpuscular Hemoglobin 29 pg (27-31); Mean Corpuscular Volume 88 fL (80-97); Mean Platelet Volume 8.5 fL (7.4-10.4); Nucleated Red Blood Cells % 0.1; Platelet Count 306 10^3/uL (150-450); Red Blood Count 4.54 10^6 /uL (3.70-4.87); Red Cell Distribution Width 14 % (10-15); White Blood Count 8.3 10^3/uL (3.5-10.8)
[2022-05-07 05:07] LABS: Calcium 9.2 mg/dL (8.6-10.3); eGFR CKD-EPI 95.3 (>60)
[2022-05-07] MEDS ORDERED: DOBUTamine 2000 MCG/ML IVPREMX 500 MG/250 ML BAG IV ONE (08:53)
[2022-05-07] MEDS ORDERED: levETIRAcetam 500 MG IVPREMIX 500 MG/100 ML BAG IV SCH (09:00)
[2022-05-07] MEDS ORDERED: Insulin GLARGINE 100 un/ml 10 ml VIAL SUBCUT SCH (09:00)
[2022-05-07] MEDS ORDERED: Aspirin EC 81 mg TAB.EC (enteric coated) PO SCH (09:00)
[2022-05-07] MEDS ORDERED: Metoprolol Tartrate 5 mg VIAL 5 ml VIAL (1 mg/ml) ONE (09:16)
[2022-05-07] MEDS ORDERED: Atropine 0.1 MG/ML 10 ml SYR (1 mg) ONE (09:17)
[2022-05-07] MEDS: Enoxaparin 40 MG/0.4 ML SYR SUBCUT SCH (13:41)
[2022-05-07 15:22] VITALS: BP 130/63
== END 2022-05-07 17:15 | disposition home or self-care (01) ==
LOC: ED 08:32 → EDHOLD 08:32 → SUATTDRO 11:24 → MEDTELE 22:31
PROVIDERS: ADMIT Internal Medicine; ATTEND Internal Medicine

== ENCOUNTER 2024-03-07 10:12 | Inpatient (IN) ==
[2024-03-07 10:35] LABS: ABS Basophils 0.1 10^3/uL (0.0-0.1); ABS Eosinophils 0.1 10^3/uL (0.0-0.5); ABS Lymphocytes 2.8 10^3/uL (1.0-4.8); ABS Monocytes 0.6 10^3/uL (0.0-0.9); ABS Neutrophils 8.1 10^3/uL (1.5-7.6); Eosinophil % 0.8 %; Hematocrit 41.9 % (35-45); Hemoglobin 13.8 g/dL (11.5-14.3); Lymphocyte % 23.7 %; Mean Corpuscular Hemoglobin 29.3 pg (27-33); Mean Corpuscular Hgb Conc 32.9 g/dL (31-36); Mean Corpuscular Volume 88.9 fL (80-97); Mean Platelet Volume 8.9 fL (7.5-11.2); Platelet Count 387 10^3/uL (150-450); Red Blood Count 4.71 10^6/uL (3.63-4.92); Red Cell Distribution Width 14.3 % (12-17); White Blood Count 11.6 10^3/uL (3.8-11.8)
[2024-03-07 10:54] LABS: Activated Partial Thrombo Time 34.4 seconds (26.0-38.0); INR 1.02 (0.83-1.13)
[2024-03-07 10:59] LABS: Albumin 4.2 g/dL (3.2-5.2); Albumin/Globulin Ratio 1.6 (1-3); Calcium 9.3 mg/dL (8.6-10.3); Creatinine, Serum 0.67 mg/dL (0.51-0.95); Direct Bilirubin 0.1 mg/dL (0.03-0.18); Globulin 2.6 g/dL (2-4); Indirect Bilirubin 0.4 mg/dL (0.3-1.0); Potassium 3.8 mmol/L (3.5-5.0); Total Bilirubin 0.5 mg/dL (0.2-1.0); Total Protein 6.8 g/dL (6.4-8.9)
[2024-03-07 12:28] LABS: Urine Appearance Clear; Urine Bilirubin Negative (Negative); Urine Blood Negative (Negative); Urine Color Colorless; Urine Glucose Negative (Negative); Urine Ketones Negative (Negative); Urine Nitrite Negative (Negative); Urine Protein Trace (Negative); Urine Specific Gravity 1.015 (1.002-1.030); Urine Urobilinogen Negative (Negative)
[2024-03-07] MEDS: Dextran 70/Hypromellose Tears Eye Drops 15 ml BTL (for Artificials Tears) BOTH EYES PRN (13:34)
[2024-03-07] MEDS ORDERED: Dextrose 50% Syringe 50 ml 25 GM/50 ML SYRINGE IV PUSH PRN (15:47)
[2024-03-08] MEDS: OPTH LEFT EYE SCH (01:12)
[2024-03-08] MEDS: CIPROFLOXACIN 0.3% LEFT EYE SCH (01:12)
[2024-03-08] MEDS: Ketorolac 0.5% OPHTH 5 ML BTL RIGHT EYE SCH (06:14)
[2024-03-08] MEDS: Ciprofloxacin 0.3% OPTH.SOL 5 ML BTL LEFT EYE SCH (06:14)
[2024-03-08] MEDS: prednisoLONE 1% OPHTH.SUSP 5 ML OPHTH.SUSP LEFT EYE SCH (06:15)
[2024-03-08] MEDS: prednisoLONE 1% OPHTH.SUSP 5 ML OPHTH.SUSP RIGHT EYE SCH (06:15)
[2024-03-08] MEDS: Ketorolac 0.5% OPHTH 5 ML BTL LEFT EYE SCH (06:15)
[2024-03-08] MEDS: Lactated Ringers 1000 ml BAG 500 ML IV ONE (07:43)
[2024-03-08] MEDS ORDERED: Lactated Ringers 1000 ml BAG 1,000 ML IV SCH (08:00)
[2024-03-08 09:35] LABS: ABS Basophils 0.1 10^3/uL (0.0-0.1); ABS Eosinophils 0.1 10^3/uL (0.0-0.5); ABS Lymphocytes 2.1 10^3/uL (1.0-4.8); ABS Monocytes 0.5 10^3/uL (0.0-0.9); ABS Neutrophils 6.9 10^3/uL (1.5-7.6); Eosinophil % 1.1 %; Hematocrit 40.1 % (35-45); Hemoglobin 13.5 g/dL (11.5-14.3); Lymphocyte % 21.6 %; Mean Corpuscular Hemoglobin 29.9 pg (27-33); Mean Corpuscular Hgb Conc 33.7 g/dL (31-36); Mean Corpuscular Volume 88.5 fL (80-97); Mean Platelet Volume 8.7 fL (7.5-11.2); Platelet Count 372 10^3/uL (150-450); Red Blood Count 4.54 10^6/uL (3.63-4.92); Red Cell Distribution Width 14.6 % (12-17); White Blood Count 9.7 10^3/uL (3.8-11.8)
[2024-03-08] MEDS: PREDNISOLONE 1% RIGHT EYE SCH (10:43)
[2024-03-08] MEDS: PREDNISOLONE 1% LEFT EYE SCH (10:44)
[2024-03-08] MEDS: KETOROLAC 0.5% LEFT EYE SCH (10:52)
[2024-03-08] MEDS: KETOROLAC 0.5% RIGHT EYE SCH (10:52)
[2024-03-08 11:04] LABS: Calcium 9.7 mg/dL (8.6-10.3); Creatinine, Serum 0.75 mg/dL (0.51-0.95); Magnesium 1.9 mg/dL (1.9-2.7); Potassium 4.5 mmol/L (3.5-5.0); eGFR CKD-EPI 91.1 (>60)
[2024-03-08 11:22] LABS: High Sensitivity Troponin 1 Hr 8 pg/mL (<15)
[2024-03-08] MEDS: Sulfur Hexaflouride MICROSPHR 25 MG VIAL IV ONE (15:01)
[2024-03-08] MEDS ORDERED: Sulfur Hexaflouride MICROSPHR 25 MG VIAL ONE (15:24)
[2024-03-08] MEDS: Lidocaine PATCH 5% PATCH TRANSDERM SCH (17:03)
[2024-03-08] MEDS: Enoxaparin 40 MG/0.4 ML SYR SUBCUT SCH (17:41)
[2024-03-09 05:19] LABS: ABS Basophils 0.1 10^3/uL (0.0-0.1); ABS Eosinophils 0.2 10^3/uL (0.0-0.5); ABS Lymphocytes 2.2 10^3/uL (1.0-4.8); ABS Monocytes 0.5 10^3/uL (0.0-0.9); ABS Neutrophils 5.2 10^3/uL (1.5-7.6); ABS Nucleated RBC 0.01 10^3/ul; Eosinophil % 2.1 %; Hematocrit 38.1 % (35-45); Hemoglobin 12.8 g/dL (11.5-14.3); Lymphocyte % 27.3 %; Mean Corpuscular Hemoglobin 29.8 pg (27-33); Mean Corpuscular Hgb Conc 33.5 g/dL (31-36); Mean Platelet Volume 8.7 fL (7.5-11.2); Nucleated Red Blood Cells % 0.1 %/100WBC (0.0-0.8); Platelet Count 319 10^3/uL (150-450); Red Blood Count 4.28 10^6/uL (3.63-4.92); Red Cell Distribution Width 14.5 % (12-17); White Blood Count 8.2 10^3/uL (3.8-11.8)
[2024-03-09 05:48] LABS: Calcium 9.3 mg/dL (8.6-10.3); Creatinine, Serum 0.68 mg/dL (0.51-0.95); Magnesium 1.8 mg/dL (1.9-2.7); Potassium 4.1 mmol/L (3.5-5.0); eGFR CKD-EPI 99.6 (>60)
[2024-03-09] MEDS: Magnesium Sulfate 2 gm BAG 2 GM/50 ML BAG IVPB ONE (08:43)
[2024-03-09] MEDS: Insulin ISOPH/REG 70/30 SUBCUT SCH (17:20)
[2024-03-10 05:59] LABS: Calcium 9.3 mg/dL (8.6-10.3); Creatinine, Serum 0.68 mg/dL (0.51-0.95); Magnesium 1.9 mg/dL (1.9-2.7); Potassium 4.2 mmol/L (3.5-5.0); eGFR CKD-EPI 99.6 (>60)
[2024-03-10] MEDS: Insulin ISOPH/REG 70/30 SUBCUT SCH (09:11)
[2024-03-10] MEDS ORDERED: Dextrose 50% Syringe 50 ml 25 GM/50 ML SYRINGE IV PUSH PRN (14:11)
[2024-03-11] MEDS ORDERED: Magnesium Hydroxide LIQ 30 ML UDC PO PRN (12:52)
[2024-03-11] MEDS: Polyethylene Glycol 3350 17 GM PACKET PO SCH (13:54)
[2024-03-11] MEDS: Magnesium Hydroxide LIQ 30 ML UDC PO SCH (13:54)
[2024-03-11] MEDS: Senna TAB 8.6 mg TAB PO PRN (14:03)
[2024-03-12] MEDS: Lidocaine PATCH 5% PATCH TRANSDERM ONE (04:26)
[2024-03-13 05:19] VITALS: BP 156/69
[2024-03-13 06:18] LABS: Hematocrit 38.4 % (35-45); Hemoglobin 12.9 g/dL (11.5-14.3); Mean Corpuscular Hgb Conc 33.6 g/dL (31-36); Mean Corpuscular Volume 89.3 fL (80-97); Mean Platelet Volume 8.4 fL (7.5-11.2); Platelet Count 327 10^3/uL (150-450); Red Blood Count 4.29 10^6/uL (3.63-4.92); Red Cell Distribution Width 14.4 % (12-17); White Blood Count 7.9 10^3/uL (3.8-11.8)
[2024-03-13 06:38] LABS: Calcium 9.2 mg/dL (8.6-10.3); Creatinine, Serum 0.65 mg/dL (0.51-0.95); Magnesium 1.7 mg/dL (1.9-2.7); Potassium 4.1 mmol/L (3.5-5.0); eGFR CKD-EPI 100.7 (>60)
[2024-03-13] MEDS: Magnesium Sulf 4 GM/100 ML IV 4,000 MG/100 ML BAG IVPB ONE (09:50)
== END 2024-03-13 08:44 | DRG 65 ==
LOC: EDHOLD 10:12 → ED 10:12 → MEDTELE 15:42 → SUATTDRO 03-09 12:00
PROVIDERS: ADMIT Hospitalist; ATTEND Student in an Organized Health Care Education/Training Program

== ENCOUNTER 2024-03-12 08:16 | Inpatient (IN) ==
[2024-03-13] MEDS ORDERED: Dextrose 50% Syringe 50 ml 25 GM/50 ML SYRINGE IV PUSH PRN (14:07)
[2024-03-13] MEDS: Insulin ISOPH/REG 70/30 SUBCUT SCH (17:22)
[2024-03-13] MEDS: Enoxaparin 40 MG/0.4 ML SYR SUBCUT SCH (17:22)
[2024-03-13] MEDS: Sodium Phosphate ADULT ENEMA 133 ML BTL PR PRN (20:20)
[2024-03-13] MEDS ORDERED: Ketorolac 0.5% OPHTH 5 ML BTL RIGHT EYE SCH (21:00)
[2024-03-13] MEDS ORDERED: OPTH LEFT EYE SCH (21:00)
[2024-03-13] MEDS ORDERED: prednisoLONE 1% OPHTH.SUSP 5 ML OPHTH.SUSP LEFT EYE SCH (21:00)
[2024-03-13] MEDS ORDERED: Ketorolac 0.5% OPHTH 5 ML BTL LEFT EYE SCH (21:00)
[2024-03-13] MEDS ORDERED: CIPROFLOXACIN 0.3% LEFT EYE SCH (21:00)
[2024-03-13] MEDS ORDERED: prednisoLONE 1% OPHTH.SUSP 5 ML OPHTH.SUSP RIGHT EYE SCH (21:00)
[2024-03-13] MEDS: Magnesium Hydroxide LIQ 30 ML UDC PO PRN (21:16)
[2024-03-13] MEDS: KETOROLAC 0.5% LEFT EYE SCH (21:21)
[2024-03-13] MEDS: PREDNISOLONE 1% LEFT EYE SCH (21:22)
[2024-03-14 06:12] LABS: ABS Basophils 0.1 10^3/uL (0.0-0.1); ABS Eosinophils 0.1 10^3/uL (0.0-0.5); ABS Lymphocytes 2.6 10^3/uL (1.0-4.8); ABS Monocytes 0.9 10^3/uL (0.0-0.9); ABS Neutrophils 10.2 10^3/uL (1.5-7.6); ABS Nucleated RBC 0.02 10^3/ul; Eosinophil % 0.6 %; Hematocrit 39.5 % (35-45); Hemoglobin 13.2 g/dL (11.5-14.3); Lymphocyte % 18.8 %; Mean Corpuscular Hemoglobin 29.7 pg (27-33); Mean Corpuscular Hgb Conc 33.5 g/dL (31-36); Mean Corpuscular Volume 88.6 fL (80-97); Mean Platelet Volume 8.5 fL (7.5-11.2); Nucleated Red Blood Cells % 0.2 %/100WBC (0.0-0.8); Platelet Count 362 10^3/uL (150-450); Red Blood Count 4.46 10^6/uL (3.63-4.92); Red Cell Distribution Width 14.2 % (12-17); White Blood Count 13.9 10^3/uL (3.8-11.8)
[2024-03-14 06:37] LABS: Albumin 3.8 g/dL (3.2-5.2); Albumin/Globulin Ratio 1.5 (1-3); Calcium 9.4 mg/dL (8.6-10.3); Creatinine, Serum 0.63 mg/dL (0.51-0.95); Globulin 2.5 g/dL (2-4); Total Bilirubin 0.5 mg/dL (0.2-1.0); Total Protein 6.3 g/dL (6.4-8.9); eGFR CKD-EPI 101.5 (>60)
[2024-03-14] MEDS: Insulin ISOPH/REG 70/30 SUBCUT SCH (08:47)
[2024-03-14] MEDS: Polyethylene Glycol 3350 17 GM PACKET PO SCH (08:49)
[2024-03-14] MEDS: Aspirin EC 81 mg TAB.EC (enteric coated) PO SCH (08:51)
[2024-03-14] MEDS ORDERED: Ketorolac 0.5% OPHTH 5 ML BTL LEFT EYE SCH (09:00)
[2024-03-14] MEDS: PREDNISOLONE 1% RIGHT EYE SCH (12:58)
[2024-03-14] MEDS: KETOROLAC 0.5% RIGHT EYE SCH (13:00)
[2024-03-14] MEDS: Lidocaine PATCH 5% PATCH TRANSDERM SCH (13:00)
[2024-03-16] MEDS: Senna TAB 8.6 mg TAB PO PRN (21:18)
[2024-03-17] MEDS: Ondansetron ODT 4 mg TAB 4 MG TAB PO PRN (01:22)
[2024-03-17 07:02] LABS: Hematocrit 42.1 % (35-45); Hemoglobin 14.3 g/dL (11.5-14.3); Mean Corpuscular Hemoglobin 30.4 pg (27-33); Mean Corpuscular Hgb Conc 33.9 g/dL (31-36); Mean Corpuscular Volume 89.5 fL (80-97); Red Cell Distribution Width 14.4 % (12-17); White Blood Count 8.8 10^3/uL (3.8-11.8)
[2024-03-17 07:44] LABS: ABS Basophils 0.1 10^3/uL (0.0-0.1); ABS Eosinophils 0.1 10^3/uL (0.0-0.5); ABS Lymphocytes 2.6 10^3/uL (1.0-4.8); ABS Monocytes 0.6 10^3/uL (0.0-0.9); ABS Neutrophils 5.4 10^3/uL (1.5-7.6); ABS Nucleated RBC 0.01 10^3/ul; Eosinophil % 1.6 %; Lymphocyte % 29.2 %; Mean Platelet Volume 8.2 fL (7.5-11.2); Nucleated Red Blood Cells % 0.1 %/100WBC (0.0-0.8); Platelet Count 367 10^3/uL (150-450)
[2024-03-17] MEDS: Insulin ISOPH/REG 70/30 SUBCUT SCH ×2 (10:37→17:05)
[2024-03-18] MEDS ORDERED: Insulin ISOPH/REG 70/30 SUBCUT SCH (08:00)
[2024-03-19] MEDS: SEMAGLUTIDE 1 MG SUBCUT SCH (17:14)
[2024-03-21 06:42] LABS: ABS Basophils 0.1 10^3/uL (0.0-0.1); ABS Eosinophils 0.1 10^3/uL (0.0-0.5); ABS Lymphocytes 2.1 10^3/uL (1.0-4.8); ABS Monocytes 0.5 10^3/uL (0.0-0.9); ABS Neutrophils 5.3 10^3/uL (1.5-7.6); ABS Nucleated RBC 0.01 10^3/ul; Eosinophil % 1.8 %; Hematocrit 38.9 % (35-45); Hemoglobin 12.9 g/dL (11.5-14.3); Mean Corpuscular Hemoglobin 29.4 pg (27-33); Mean Corpuscular Hgb Conc 33.1 g/dL (31-36); Mean Corpuscular Volume 88.9 fL (80-97); Mean Platelet Volume 8.2 fL (7.5-11.2); Nucleated Red Blood Cells % 0.1 %/100WBC (0.0-0.8); Platelet Count 383 10^3/uL (150-450); Red Blood Count 4.38 10^6/uL (3.63-4.92); Red Cell Distribution Width 14.7 % (12-17); White Blood Count 8.2 10^3/uL (3.8-11.8)
[2024-03-21 07:36] LABS: ALT 76 U/L (7-52); Albumin/Globulin Ratio 1.7 (1-3); Alkaline Phosphatase 153 U/L (35-149); Anion Gap 8 mmol/L (2-16); Blood Urea Nitrogen 15 mg/dL (6-24); CO2 Carbon Dioxide 28 mmol/L (22-32); Calcium 9.6 mg/dL (8.6-10.3); Chloride 102 mmol/L (101-111); Creatinine, Serum 0.66 mg/dL (0.51-0.95); Globulin 2.3 g/dL (2-4); Glucose 87 mg/dL (70-100); Sodium 138 mmol/L (135-145); Total Bilirubin 0.4 mg/dL (0.2-1.0); Total Protein 6.3 g/dL (6.4-8.9); eGFR CKD-EPI 100.4 (>60)
[2024-03-22] MEDS: Insulin ISOPH/REG 70/30 SUBCUT SCH (08:22)
[2024-03-23] MEDS: Al Hydrox/Mg Hydrox/Simet LIQ 30 ML UDC PO PRN (00:18)
[2024-03-23] MEDS: Insulin ISOPH/REG 70/30 SUBCUT SCH ×2 (07:49→16:49)
[2024-03-23] MEDS: Calcium Carb (TUMS) 500 mg CHEW TAB PO PRN (14:03)
[2024-03-28 07:09] LABS: ABS Basophils 0.1 10^3/uL (0.0-0.1); ABS Eosinophils 0.1 10^3/uL (0.0-0.5); ABS Monocytes 0.7 10^3/uL (0.0-0.9); ABS Neutrophils 5.9 10^3/uL (1.5-7.6); Eosinophil % 1.4 %; Hemoglobin 12.1 g/dL (11.5-14.3); Lymphocyte % 23.1 %; Mean Corpuscular Hgb Conc 33.7 g/dL (31-36); Mean Corpuscular Volume 88.8 fL (80-97); Platelet Count 381 10^3/uL (150-450); Red Blood Count 4.05 10^6/uL (3.63-4.92); Red Cell Distribution Width 14.3 % (12-17); White Blood Count 8.8 10^3/uL (3.8-11.8)
[2024-03-28 07:44] LABS: Albumin 3.7 g/dL (3.2-5.2); Albumin/Globulin Ratio 1.7 (1-3); Calcium 9.2 mg/dL (8.6-10.3); Creatinine, Serum 0.65 mg/dL (0.51-0.95); Globulin 2.2 g/dL (2-4); Potassium 4.3 mmol/L (3.5-5.0); Total Bilirubin 0.4 mg/dL (0.2-1.0); Total Protein 5.9 g/dL (6.4-8.9); eGFR CKD-EPI 100.7 (>60)
[2024-03-30] MEDS: OZEMPIC 1 MG SUBCUT SCH ×2 (09:59→10:15)
[2024-04-01] MEDS: PAIN RELIEVING RUB (MENTHOL/SALICYLATE) 1 APPLIC TUBE TOPICAL PRN (12:45)
[2024-04-04 05:59] LABS: ABS Basophils 0.1 10^3/uL (0.0-0.1); ABS Eosinophils 0.2 10^3/uL (0.0-0.5); ABS Lymphocytes 2.1 10^3/uL (1.0-4.8); ABS Monocytes 0.6 10^3/uL (0.0-0.9); ABS Neutrophils 5.4 10^3/uL (1.5-7.6); Hematocrit 35.9 % (35-45); Hemoglobin 12.2 g/dL (11.5-14.3); Lymphocyte % 25.2 %; Mean Corpuscular Hgb Conc 33.9 g/dL (31-36); Mean Corpuscular Volume 88.4 fL (80-97); Mean Platelet Volume 7.5 fL (7.5-11.2); Platelet Count 344 10^3/uL (150-450); Red Blood Count 4.06 10^6/uL (3.63-4.92); Red Cell Distribution Width 14.5 % (12-17); White Blood Count 8.4 10^3/uL (3.8-11.8)
[2024-04-04 06:36] LABS: Albumin 3.7 g/dL (3.2-5.2); Albumin/Globulin Ratio 1.5 (1-3); Calcium 9.3 mg/dL (8.6-10.3); Creatinine, Serum 0.62 mg/dL (0.51-0.95); Globulin 2.4 g/dL (2-4); Total Bilirubin 0.4 mg/dL (0.2-1.0); Total Protein 6.1 g/dL (6.4-8.9); eGFR CKD-EPI 101.9 (>60)
[2024-04-09 06:08] LABS: ABS Eosinophils 0.2 10^3/uL (0.0-0.5); ABS Lymphocytes 2.2 10^3/uL (1.0-4.8); ABS Monocytes 0.5 10^3/uL (0.0-0.9); ABS Neutrophils 5.1 10^3/uL (1.5-7.6); ABS Nucleated RBC 0.01 10^3/ul; Hematocrit 37.5 % (35-45); Hemoglobin 12.7 g/dL (11.5-14.3); Lymphocyte % 27.7 %; Mean Corpuscular Hgb Conc 33.9 g/dL (31-36); Mean Corpuscular Volume 88.5 fL (80-97); Mean Platelet Volume 7.8 fL (7.5-11.2); Nucleated Red Blood Cells % 0.1 %/100WBC (0.0-0.8); Platelet Count 343 10^3/uL (150-450); Red Blood Count 4.23 10^6/uL (3.63-4.92); Red Cell Distribution Width 14.3 % (12-17); White Blood Count 8.1 10^3/uL (3.8-11.8)
[2024-04-09 06:21] LABS: Albumin 3.8 g/dL (3.2-5.2); Albumin/Globulin Ratio 1.6 (1-3); Calcium 9.4 mg/dL (8.6-10.3); Creatinine, Serum 0.61 mg/dL (0.51-0.95); Globulin 2.4 g/dL (2-4); Potassium 4.2 mmol/L (3.5-5.0); Total Bilirubin 0.4 mg/dL (0.2-1.0); Total Protein 6.2 g/dL (6.4-8.9); eGFR CKD-EPI 102.3 (>60)
[2024-04-13] MEDS: Lidocaine PATCH 5% PATCH TRANSDERM SCH (21:09)
[2024-04-16 06:44] LABS: ABS Basophils 0.1 10^3/uL (0.0-0.1); ABS Eosinophils 0.2 10^3/uL (0.0-0.5); ABS Lymphocytes 2.5 10^3/uL (1.0-4.8); ABS Monocytes 0.5 10^3/uL (0.0-0.9); ABS Neutrophils 5.8 10^3/uL (1.5-7.6); Hematocrit 36.5 % (35-45); Hemoglobin 12.3 g/dL (11.5-14.3); Lymphocyte % 27.8 %; Mean Corpuscular Hgb Conc 33.7 g/dL (31-36); Mean Corpuscular Volume 89.2 fL (80-97); Mean Platelet Volume 7.9 fL (7.5-11.2); Platelet Count 387 10^3/uL (150-450); Red Cell Distribution Width 14.7 % (12-17); White Blood Count 9.1 10^3/uL (3.8-11.8)
[2024-04-16 06:58] LABS: Albumin 3.9 g/dL (3.2-5.2); Albumin/Globulin Ratio 1.7 (1-3); Calcium 9.5 mg/dL (8.6-10.3); Creatinine, Serum 0.63 mg/dL (0.51-0.95); Globulin 2.3 g/dL (2-4); Potassium 4.1 mmol/L (3.5-5.0); Total Bilirubin 0.3 mg/dL (0.2-1.0); Total Protein 6.2 g/dL (6.4-8.9); eGFR CKD-EPI 101.5 (>60)
[2024-04-18] MEDS: Influenza Vaccine *TRI* 2024-25* 0.5 ML SYRINGE IM ONE (07:41)
[2024-04-19 06:42] VITALS: BP 133/76
== END 2024-04-19 18:32 | disposition home or self-care (01) | DRG 65 ==
LOC: PMRU 03-13 11:27
PROVIDERS: ADMIT Physical Medicine & Rehabilitation; ATTEND Physical Medicine & Rehabilitation